=== PATIENT | female | born 1960 | race Caucasian/White ===

== ENCOUNTER → 2018-06-25 13:26 | Outpatient (CLI) | payer MEDICAID, SELFPAY ==
--- NOTE | 2018-06-25 13:33 | XR_ITS ---
XR shoulder RT min 2V HISTORY: ITS.REASON: RT ANTERIOR SHOULDER PAIN ORDERING PHYSICIAN: Benny Watt MD PATIENT AGE: 58 years Comparison: None FINDINGS: No fracture or dislocation. No lytic or blastic change. There is normal mineralization. The joint spaces are well-preserved. No significant degenerative/arthritic changes. No erosive changes evident. IMPRESSION: Negative, no acute finding
== END ==
PROVIDERS: PCP Family Medicine; Visit Provider Family Medicine
DX: M25.511 Pain in right shoulder (principal)
CPT/HCPCS: 73030

== ENCOUNTER → 2019-12-25 08:37 | Outpatient (CLI) | payer OTHER, SELFPAY ==
--- NOTE | 2019-12-25 08:42 | MM_ITS ---
PROCEDURE: MM DIG SCREENING MAMM BI W/CAD Digital Breast Tomosynthesis Included CLINICAL INDICATION: SCREENING There is no personal or family history of breast cancer. COMPARISON: No exams were available for comparison, previous mammograms have been purged TECHNIQUE: Standard CC and MLO images and 3D Tomosynthesis was obtained. R2 CAD reviewed. FINDINGS: The breasts are composed primarily of fat with minimal scattered fibroglandular densities in each breast. Abdominal images were reviewed. There is no suspicious lesion in either breast and no suspicious microcalcifications. There is minimal scarring central portion right breast secondary to injury in teenage years. IMPRESSION: Fatty type breast parenchyma with no suspicious lesions seen BI-RAD Category: 1 Negative FOLLOW-UP: 1YR 1 Year Follow-up (A letter has been sent to the patient regarding results of the study.) Dictated by: Dr. Saad Silva MD 12/26/2019 12:[address] Saad Silva MD in [place] 12/26/2019 12:02
--- NOTE | 2019-12-25 08:42 | CT_ITS ---
PROCEDURE: CT LUNG SCREENING CLINICAL INDICATION: H/O NICOTINE DEPENDENCE COMPARISON: No exams were available for comparison TECHNIQUE: The exam was performed on a GE Light Speed [address] scanner using 2.90 mGy CTDI. A low dose helical CT CHEST was performed on a multi-detector scanner. All CT scans at the facility use one or more dose reduction, viz: automated exposure control, ma/kV adjustment per patient size (including targeted exams where dose is matched to indication, i.e. head), or iterative reconstruction technique. The LDCT was performed in a facility that meets the criteria for the screening program. Data regarding this exam was submitted to ACR which is an approved registry. The order for this exam indicates that it came as a result of a lung cancer screening counseling shard decision-making visit that included all the elements required of such a visit including smoking cessation. The radiologist interpreting this exam meets the CMS criteria for the LDCT lung cancer screening program. The exam is reported using the Lung-RADS classification scale and reported to the ACR registry. NOTE: This study was performed for the specific purposes of lung cancer screening and is not an alternative to diagnostic chest CT. RADIATION DOSE: CTDI vol(CT dose Index-volume) = 2.90mG DLP (Dose Length Product) = 97.9 the mGcm FINDINGS: Changes of COPD and old granulomatous disease. No suspicious nodules. There are few scattered small mediastinal lymph nodes OTHER FINDINGS: Coronary artery calcification IMPRESSION: Lung rads category 1, negative, Recommend annual LDCT Dictated by: Kelton Miles MD 12/29/2019 09:58 Electronically signed by Kelton Miles MD in [place] 12/29/2019 09:58
== END ==
PROVIDERS: PCP Family Medicine; Visit Provider Family Medicine
DX: Z12.31 Encounter for screening mammogram for malignant neoplasm of breast (principal); Z87.891 Personal history of nicotine dependence; Z12.2 Encounter for screening for malignant neoplasm of respiratory organs
CPT/HCPCS: 77063; 77067

== ENCOUNTER → 2020-04-29 10:17 | Outpatient (CLI) | payer OTHER, SELFPAY ==
[2020-04-29 12:06] LABS: Coronavirus 19 IgG Antibody Negative (Negative); Coronavirus 19 IgM Antibody Negative (Negative)
== END ==
PROVIDERS: Visit Provider Internal Medicine Gastroenterology
DX: Z01.818 Encounter for other preprocedural examination (principal)
CPT/HCPCS: 36415; 86328

== ENCOUNTER 2020-04-30 08:29 | Day surgery (SDC) | payer OTHER, SELFPAY ==
[2020-04-26 15:34] VITALS: BMI 34.9
[2020-04-30] VITALS (7 sets, daily range): BP systolic 91–136; BP diastolic 68–88; PULSE 69–77; RESP 16–18; TEMP 36.2–36.7; O2SAT 95–98
--- NOTE | 2020-04-30 09:45 | HMH.ANESCL ---
[facility] Anesthesia Checklist - Patient Identification Patient Identification: Arm Band - Structural Data Admitted From: Home Planned Operative Procedure/s: colonoscopy Consent for Planned Operative Procedure(s) Verified: Yes Verified Documents: Surgical Consent, History and Physical - NPO Status Verified Time NPO: 00:00 - Additional verifications Anesthesia Reactions: No - Airway Assessment C-Spine Mobility Assessed: Yes (mp2) TMJ Mobility Assessed: Yes Dentition: Poor Dentition - Neurological Assessment Level of Consciousness: Awake, Alert - Anesthesia Plan Anesthesia Risk discussed: Yes Anesthesia Plan: Verified ASA Class: III Anesthesia Type: MAC [facility] History I have reviewed the patient's past medical history: Yes Medical History: Reports:: Anxiety, Hyperlipidemia, Hypertension Denies:: Cancer, Diabetes Mellitus Type 1, Diabetes Mellitus Type 2, Internal Pacemaker, MRSA, Seizures *Have you ever received a pneumonia vaccine?: No *Have you received a flu vaccine this season?: No Anesthesia experience/problems:: nac Laterality Cases: Right: Lumpectomy Other Surgeries: Yes: Dilation and Curettage, Hysterectomy-Total, Tubal Ligation, Other. No: Pacemaker Amputation: No - *Social History Last grade of school completed: High school graduate Smoking Status: Current every day smoker Tobacco Type: cigarettes # Packs/Day (cigarettes): 1 Alcohol Intake: current Alcohol Intake Frequency:: a few times a month Substance Use Type: denies use *Occupational Status:: unemployed Housing: house Household Members: spouse *Travel in the last 8 weeks: None Family Hx:: No significant family history
--- NOTE | 2020-04-30 10:28 | P.PCN_ITS ---
[facility] Procedure Note Procedure Note:: Colonoscopy Procedure Report: Colonoscopy with cold snare polypectomy and snare cautery Endoscopist: Zeke Leonard II, MD Referring physician: Benny Watt MD Date of Procedure: April 30, 2020 Equipment: Olympus 180 variable stiffness pediatric colonoscope Sedation: MAC sedation Indication: Mrs. Byrnes is a 60-year-old female who is here for initial screening colonoscopy. The patient does report some chronic constipation possibly from the the opiate pain medication (hydrocodone). The patient reports no abdominal pain, weight loss, change in her bowel habits or rectal bleeding. She reports no family history of colon cancer. She does have a prior history of a gastric ulcer. She has taken famotidine after Zantac was pulled off of the market. Procedure: Prior to the procedure, a history and physical exam was performed, and patient's medications and allergies were reviewed. The risks, benefits and alternatives of the sedation and procedure were discussed with the patient. All questions were answered and informed consent was obtained. The patient was brought to the procedure room. Patient identification and proposed procedure were verified by the physician and the nurse. The patient was placed in a left lateral decubitus position and the scope was passed under direct vision. Throughout the procedure, the patient's blood pressure, pulse, and oxygen saturations were monitored continuously. The colonoscopy was accomplished without difficulty. The patient tolerated the procedure well. Findings: On digital rectal examination there was normal rectal tone. There were no external hemorrhoids. The colonoscope was introduced through the anal canal to the rectum and advanced to the cecum. The ileocecal valve and appendiceal orifice were identified. The scope was advanced a short distance into the ileum which appeared grossly normal. The scope was then withdrawn into the colon. There were a total of 8 colon polyps removed from the colon (cecum x2 (4 and 5 mm), transverse x3 (9, 10 and 16mm), descending x1 (8 mm) and sigmoid x2 (both pedunculated 10 and 11 mm)). All of the polyps were removed via snare polypectomy. The proximal polyps were removed via cold snare polypectomy but the latter pedunculated polyps were removed via snare cautery. Upon retroflexion within the rectum there were grade 1-2 internal hemorrhoids.The preparation was excellent throughout with [place] Preparation Score of 9. The cecal time was 18 minutes. Impression: 1. Colonic polyps x8 (some larger/slightly more advanced adenomatous polyps) 2. Grade 1-2 internal hemorrhoids Plan: I will follow-up the polyp histology. Based upon the size and number of adenomatous polyps, I would recommend repeat screening/surveillance colonoscopy again in 1 to 2 years based upon the pathology. We will discuss treatment for her opioid-induced constipation (Movantik or Relistor).
== END 2020-04-30 11:22 | disposition home or self-care (01) ==
LOC: OUTP 08:31
PROVIDERS: PCP Family Medicine; Visit Provider Internal Medicine Gastroenterology
PROC: 0DJD8ZZ Inspection of Lower Intestinal Tract, Via Natural or Artificial Opening Endoscopic (ICD-10-PCS; CPT 45378; principal; 2020-04-30 09:30)
DX: Z12.11 Encounter for screening for malignant neoplasm of colon (principal); K63.5 Polyp of colon; K64.0 First degree hemorrhoids; Z79.891 Long term (current) use of opiate analgesic; Z87.11 Personal history of peptic ulcer disease; I10 Essential (primary) hypertension; E78.5 Hyperlipidemia, unspecified; F41.9 Anxiety disorder, unspecified; F32.9 Major depressive disorder, single episode, unspecified; Z90.710 Acquired absence of both cervix and uterus; Z72.0 Tobacco use; Z79.899 Other long term (current) drug therapy
CPT/HCPCS: 45385

== ENCOUNTER → 2021-03-08 15:44 | Outpatient (CLI) | payer BC, SELFPAY ==
--- NOTE | 2021-03-08 15:52 | XR_ITS ---
PROCEDURE: XR CHEST PORTABLE CLINICAL HISTORY: COVID OUTPATIENT COMPARISON: CR CXR CHEST(2 VIEWS-NOT PORTABLE) from 01/16/2015 FINDINGS: The cardiomediastinal silhouette and pulmonary vascularity are within normal limits. The lungs are clear without infiltrates, suspicious nodules, or pleural effusions. No acute bony abnormalities. IMPRESSION: No acute findings. Dictated by: Kelton Miles MD 03/08/2021 16:17 Kelton Miles MD in [place] 03/08/2021 16:17
== END ==
PROVIDERS: PCP Family Medicine; Visit Provider Family Medicine
DX: Z20.822 Contact with and (suspected) exposure to COVID-19 (principal)
CPT/HCPCS: 71045; U0003

== ENCOUNTER 2021-07-10 14:11 | Emergency (ER) | payer BC, SELFPAY ==
[2021-07-10 16:42] VITALS: BP 125/84; PULSE 91; RESP 19; TEMP 37; O2SAT 98; BMI 34.0
--- NOTE | 2021-07-10 17:25 | HMH.EDUTC ---
[facility] Disposition Clinical Impression: Exposure to COVID-19 virus Disposition: Home, Self-Care Condition on Discharge: Good Instructions: Vitamin C (Ascorbic Acid), Vitamin D (Alternative Therapy), Zinc, Vitamin D3 Associated With Decreased Risk of Dying in Elderly Women, DI for COVID-19 (Suspected or Confirmed ), Preventing the Spread of Coronavirus Discharge Instructions Additional Instructions: *Monitor Temp, Over the counter Motrin or Tylenol as directed/as needed Tylenol every 4 hours and Motrin every 6 hours (as long as your family doctor has told you that you can take it) for fever or pain. and straight to ER if unable to lower temp less than 101.0 after medication given *Warm salt water gargles may help to soothe the throat *Throat Lozenges *Warm fluids like tea with honey may help to soothe the throat *Sleep elevated *Humidifier/Vaporizer Follow up IMMEDIATELY for new or worsening symptoms or no Noticeable improvement over the next 48-72 hours. 911 for difficulty breathing or swallowing You were tested for today for COVID19 your test result should be back in the next 24-48 hours, You was given handout for instructions to [facility] to view your result if you are unable to log on you may call You was given a handout with instructions for Self Quarantine and Self isolation for while you wait on test results and what to do if they are positive If you are positive the Health Dept will be contacting you also Make sure to take your Vitamins Vit. C Vit D and Zinc if you can take them Referrals: Benny Watt MD [Primary Care Provider] - As needed Forms: Work/School Release Time of Disposition: 17:33 Medical Decision Making - Bradly Inquiry Pt receiving controlled substance: No Bradly was queried for this patient: No Vital Signs: 07/10/21 16:42 Temperature 98.6 F Temperature Source Oral Pulse Rate [Right Brachial] 91 H Respiratory Rate 19 Blood Pressure [Right Arm] 125/84 Blood Pressure Mean [Right Arm] 97 Blood Pressure Source [Right Arm] Automatic Cuff Blood Pressure Position [Right Arm] Sitting 02 Sat by Pulse Oximetry 98 Oxygen Delivery Method Room Air Orders (Tests/Meds): ORDERS Category Date Time Status Covid-19 Nasal PCR ([facility]) Routine Lab 07/10/21 16:[address] [facility] HPI - General Stated complaint: fever, sore throat, cough, headache, muscle aches Time Seen by Provider: 07/10/21 17:25 Mode of Arrival: Ambulatory Source of Information: Patient Description of Symptoms (Recalled from Triage Doc. by RN): covid test, cough, fever, exposure, fatigue, headache HEENT Symptoms (Recalled from RN notes): Yes Resp Symptoms (Recalled from RN notes): Yes Skin Symptoms (Recalled from RN notes): No MS Symptoms (Recalled from RN notes): No Functional Status (Recalled from RN notes): yes - History of Present Illness Provider Complaint: Patient states that he was around her daughter last week and she recently tested positive for COVID states that yesterday she started with body aches, chills, headache and feeling like she had the flu States that today she was still feeling bad so she came in to get checked - Related Data Home Medications Medication Instructions Recorded Confirmed Bisoprolol/Hydrochlorothiazide 1 each PO DAILY 04/26/20 04/26/20 [Bisoprolol-Hctz 10-6.25 mg Tab] Hydrocodone/Acetaminophen [Lortab 1 tab PO NEEDED PRN 04/26/20 04/26/20 7.5/325mg tablet] Lovastatin 10 mg PO DAILY 04/26/20 04/26/20 Venlafaxine HCl [Venlafaxine HCl 37.5 mg PO DAILY 04/26/20 04/26/20 ER] diazePAM [Valium 10mg tablet] 10 mg PO BID 04/26/20 04/26/20 hydroCHLOROthiazide [HCTZ 12.5mg 12.5 mg PO DAILY 04/26/20 04/26/20 cap] raNITIdine HCl [Ranitidine HCl] 75 mg PO DAILY 04/26/20 04/26/20 Allergies Allergy/AdvReac Type Severity Reaction Status Date / Time codeine Allergy Mild Nausea Verified 07/10/21 16:41 - Worker's Comp Is this a Worker's Comp david
[2021-07-10 17:42] VITALS: BP 125/84; PULSE 91; RESP 19; TEMP 37; O2SAT 98
== END 2021-07-10 17:42 | disposition home or self-care (01) ==
PROVIDERS: Emergency Provider Nurse Practitioner; PCP Family Medicine
DX: Z20.822 Contact with and (suspected) exposure to COVID-19 (principal); J02.9 Acute pharyngitis, unspecified; E78.5 Hyperlipidemia, unspecified; I10 Essential (primary) hypertension; Z79.899 Other long term (current) drug therapy
CPT/HCPCS: 99202; C9803; G0463; U0003; U0005

== ENCOUNTER → 2022-07-04 12:52 | Outpatient (CLI) | payer BC, SELFPAY ==
--- NOTE | 2022-07-04 12:56 | MM_ITS ---
PROCEDURE INFORMATION: Exam: MG Bilateral Screening 3D Mammography Exam date and time: 07/04/2022 12:55 PM Age: 62 years old Clinical indication: Screening examination TECHNIQUE: Imaging protocol: Bilateral Screening tomosynthesis and 2D mammography including computer-aided detection (CAD) when performed. COMPARISON: MG MM DIG SCREENING MAMM BI W/CAD 12/25/2019 9:13 AM FINDINGS: MAMMOGRAPHY: Breast composition: There are scattered areas of fibroglandular density. Mass: None. Architectural distortion: No new or suspicious architectural distortion. Calcifications: No new or suspicious calcifications are present Asymmetric density: No new or suspicious asymmetric density is present Skin thickening: None. Axillary adenopathy: None. IMPRESSION: No mammographic evidence of malignancy. Recommend annual screening mammography unless otherwise clinically indicated. ASSESSMENT: BI-RADS category 1: Negative
== END ==
PROVIDERS: PCP Family Medicine; Visit Provider Family Medicine
DX: Z12.31 Encounter for screening mammogram for malignant neoplasm of breast (principal)
CPT/HCPCS: 77063; 77067

== ENCOUNTER 2024-06-24 10:41 | Outpatient (CLI) | payer BC, SELFPAY ==
[2024-06-24 11:56] LABS: Anion Gap 9.5 mEq/L (5-15); Blood Urea Nitrogen 13 mg/dl (7-17); Calcium 9.5 mg/dl (8.4-10.2); Carbon Dioxide 31 mmol/L (22.0-30.0); Chloride 102 mmol/L (98-107); Estimated Glomerular Filt Rate 50 ml/min (>60); GFR (African American) 61 ML/MIN (>60); Glucose 207 mg/dl (74-100); Potassium 3.5 mmoL/L (3.5-5.1); Sodium 139 mmol/L (136-145)
== END 2024-06-24 23:59 | disposition home or self-care (01) ==
LOC: LAB 10:42
PROVIDERS: PCP Family Medicine; Visit Provider Family Medicine
DX: N18.31 Chronic kidney disease, stage 3a (principal); E87.6 Hypokalemia
CPT/HCPCS: 36415; 80048

== ENCOUNTER 2025-08-31 15:38 | Observation (INO) | payer OTHER, SELFPAY ==
[2025-08-31] VITALS (15 sets, daily range): BP systolic 102–146; BP diastolic 68–93; PULSE 90–110; RESP 16–18; TEMP 37.2; O2SAT 93–98; BMI 29.9
--- NOTE | 2025-08-31 15:49 | ECG_ITS ---
APPROVED REPORT Exam: Resting ECG HR:105 bpm ECG Measurements Heart Rate 105 AXES DC 148 P 49 QRSd 86 QRS 14 QT 244 T 115 QTc 305 Conclusion SINUS TACHYCARDIA ABNORMAL ECG UNCONFIRMED REPORT Electronically signed by : AMEENA MULLIGAN, 09/01/2025 05:22:38
--- NOTE | 2025-08-31 16:00 | [facility].EDCP ---
Discharge Plan Disposition Patient Disposition: Admitted Condition: Good Clinical Impressions Clinical Impression: Lung mass, Pulmonary emboli Discharge ED Provider: Theresa Contreras General Chief Complaint: Shortness of Breath/Dyspnea Stated Complaint: SOA Time Seen by Provider: 08/31/25 15:57 Mode of Arrival: Ambulatory Source of Information: Patient Description of Symptoms (Recalled from ER Triage Doc. by RN): PT states she has been experiencing SOB since this summer. Pt states within the last week she developed a sharp pain in her right shoulder as well as an increased SOB and rib pain. Pt was sent from urgent treatment. Pt states my oxygen was 60 when I was at urgent care . Pt is 98% RA in triage. History of Present Illness HPI narrative: This is a 65-year-old female with reported past medical history of hypertension and hyperlipidemia presenting to the emergency department with worsening shortness of breath, which she reports has been progressive over the past 2 to 3 weeks. She reports associated right lower chest pain with radiation to the back. Pain is worsened with deep breathing. No exacerbation of pain after eating or with meals. No reported pulmonary or cardiac history. She reports that her dyspnea is limiting her with her daily activities. No recent fevers, cough, nasal congestion, or hemoptysis. No history of DVT or PE. No malignancy. No recent surgery or immobilization. Related Data Home Medications ?Medication ?Instructions ?Recorded ?Confirmed bisoprolol 10 1 each PO DAILY High blood pressure 04/26/20 08/31/25 mg-hydrochlorothiazide 6.25 mg tablet diazepam 10 mg tablet 10 mg PO TID PRN Anxiety 04/26/20 08/31/25 hydrochlorothiazide 12.5 mg capsule 12.5 mg PO DAILY High blood 04/26/20 08/31/25 pressure lovastatin 10 mg tablet 10 mg PO DAILY Cholesterol 04/26/20 08/31/25 amitriptyline 25 mg tablet 25 mg PO HS 08/31/25 08/31/25 cyclobenzaprine 5 mg tablet 5 mg PO TID PRN Pain 08/31/25 08/31/25 empagliflozin 10 mg tablet 10 mg PO DAILY 08/31/25 08/31/25 (Jardiance) famotidine 20 mg tablet 20 mg PO BID 08/31/25 08/31/25 furosemide 40 mg tablet 40 mg PO DAILY PRN Edema 08/31/25 08/31/25 hydrocodone 5 mg-acetaminophen 325 1.5 tab PO Q8H PRN Pain 08/31/25 08/31/25 mg tablet lisinopril 5 mg tablet 5 mg PO DAILY 08/31/25 08/31/25 omeprazole 40 mg capsule,delayed 40 mg PO DAILY 08/31/25 08/31/25 release potassium chloride 20 mEq 20 meq PO DAILY 08/31/25 08/31/25 tablet,extended release(part/cryst) ziprasidone HCl 60 mg capsule 60 mg PO BID 08/31/25 08/31/25 Allergies Allergy/AdvReac Type Severity Reaction Status Date / Time codeine AdvReac Mild Nausea Verified 08/31/25 22:04 [facility] Disclaimer: The information contained in this section may have been updated after the patient was seen, as this information can be updated by other users. Medical History (Updated 08/31/25 @ 23:45 by Janet Recinos APRN) Depression Anxiety Hyperlipidemia Hypertension Chronic kidney disease Surgical History (Updated 08/31/25 @ 22:26 by Monica Stubbs RN) H/O eye surgery Family History (Updated 08/31/25 @ 23:29 by Janet Recinos APRN) Other No significant family history Social History (Updated 08/31/25 @ 22:26 by Monica Stubbs RN) Smoking Status: Former smoker tobacco type: cigarettes packs per day: 1 second hand exposure: No alcohol intake: never substance use type: denies use current occupational status: other Travel in the last 8 weeks?: None household members: spouse housing: house current occupational exposures/hazards: No caffeine: Yes Have you lived/traveled outside [place] in past 30 days?: No Contact w/someone who lives/traveled outside US past 30 days?: No Exposure to someone with infectious disease in past 14 days?: No Do you have a fever (greater than 100.4 F or 38 C)?: No Have you tested positive for COVID-19?: No Exposed to someone with COVID-19 in past 14 days?: No Do you have a sore throat?: No Do you have a cough?: No Do you have any weakness?: No Do you have any diarrhea?: No Are you experiencing any unusual bleeding?: No Do you have any muscle aches/pain?: No Do you have any abdominal pain?: No Are you experiencing loss of taste or smell?: No Other Medical History Have you received the Flu Vaccine for this season: No Have you received the Pneumonia Vaccine: No ROS Obtained: Yes All systems reviewed & no additional complaints except as documented Physical Exam General General appearance: alert and in no apparent distress Head Head exam: atraumatic and normocephalic Eye Eye exam: Present PERRL ENT ENT exam: Present mucous membranes moist Neck Neck exam: Present normal inspection Chest Chest inspection: Present symmetric chest wall rise; Absent tenderness Respiratory Respiratory exam: Present normal lung sounds bilaterally; Absent respiratory distress, wheezes or accessory muscle use Cardiovascular Cardiovascular exam: Present regular rate and normal rhythm Abdominal Exam Abdominal exam: Present soft; Absent distention or tenderness Extremities Exam Extremities exam: Present normal inspection; Absent tenderness Neurological Exam Neurological exam: Present alert and oriented X3 Psychiatric Psychiatric exam: Present normal affect Skin Skin exam: Present warm and dry HEART Score HEART Score HEART Score assessment performed?: Yes History (anamnesis): Slightly suspicious ECG: Non-specific disturbance Age: 45-65 years Risk factors: 1-2 risk factors Troponin: </= normal limit HEART Score: 3 Critical Care Critical Care Time Critical Care Time: No Medical Decision Making Bradly Inquiry Pt receiving controlled substance: No Bradly was queried for this patient: No Vital Signs Vital Signs: 08/31/25 15:54 08/31/25 16:18 08/31/25 16:30 Temperature 98.9 F Temperature Source Oral Pulse Rate 107 H 106 H Pulse Rate [Right Radial] 100 H Respiratory Rate 18 Blood Pressure 114/68 102/76 L Blood Pressure [Right Arm] 146/93 H Blood Pressure Mean Blood Pressure Mean [Right Arm] 110 Blood Pressure Source Blood Pressure Source [Right Arm] Automatic Cuff Blood Pressure Position Blood Pressure Position [Right Arm] Sitting 02 Sat by Pulse Oximetry 93 L 97 96 Oxygen Delivery Method Room Air 08/31/25 17:00 08/31/25 19:00 08/31/25 19:00 Temperature Temperature Source Pulse Rate 110 H 106 H Pulse Rate [Right Radial] Respiratory Rate Blood Pressure 124/83 116/75 Blood Pressure [Right Arm] Blood Pressure Mean 84 Blood Pressure Mean [Right Arm] Blood Pressure Source Blood Pressure Source [Right Arm] Blood Pressure Position Blood Pressure Position [Right Arm] 02 Sat by Pulse Oximetry 96 93 L Oxygen Delivery Method Room Air 08/31/25 19:15 08/31/25 19:30 08/31/25 19:30 Temperature Temperature Source Pulse Rate 105 H 105 H Pulse Rate [Right Radial] Respiratory Rate Blood Pressure 108/77 L Blood Pressure [Right Arm] Blood Pressure Mean 83 Blood Pressure Mean [Right Arm] Blood Pressure Source Blood Pressure Source [Right Arm] Blood Pressure Position Blood Pressure Position [Right Arm] 02 Sat by Pulse Oximetry 94 L 95 Oxygen Delivery Method Room Air Room Air 08/31/25 19:40 08/31/25 19:45 08/31/25 20:00 Temperature Temperature Source Pulse Rate 103 H Pulse Rate [Right Radial] Respiratory Rate Blood Pressure 103/83 L Blood Pressure [Right Arm] Blood Pressure Mean 87 Blood Pressure Mean [Right Arm] Blood Pressure Source Blood Pressure Source [Right Arm] Blood Pressure Position Blood Pressure Position [Right Arm] 02 Sat by Pulse Oximetry 95 94 L Oxygen Delivery Method Room Air 08/31/25 20:00 08/31/25 20:15 08/31/25 20:30 Temperature Temperature Source Pulse Rate 103 H 100 H 101 H Pulse Rate [Right Radial] Respiratory Rate Blood Pressure Blood Pressure [Right Arm] Blood Pressure Mean Blood Pressure Mean [Right Arm] Blood Pressure Source Blood Pressure Source [Right Arm] Blood Pressure Position Blood Pressure Position [Right Arm] 02 Sat by Pulse Oximetry 94 L 95 95 Oxygen Delivery Method Room Air Room Air Room Air 08/31/25 20:30 08/31/25 20:45 08/31/25 20:45 Temperature Temperature Source Pulse Rate 104 H Pulse Rate [Right Radial] Respiratory Rate Blood Pressure 103/74 L Blood Pressure [Right Arm] Blood Pressure Mean 83 Blood Pressure Mean [Right Arm] Blood Pressure Source Blood Pressure Source [Right Arm] Blood Pressure Position Blood Pressure Position [Right Arm] 02 Sat by Pulse Oximetry 96 Oxygen Delivery Method Room Air Room Air 08/31/25 21:00 08/31/25 21:00 08/31/25 21:14 Temperature 98.9 F Temperature Source Oral Pulse Rate 103 H 102 H Pulse Rate [Right Radial] Respiratory Rate 16 Blood Pressure 103/71 L 103/71 L Blood Pressure [Right Arm] Blood Pressure Mean 79 Blood Pressure Mean [Right Arm] Blood Pressure Source Automatic Cuff Blood Pressure Source [Right Arm] Blood Pressure Position Sitting Blood Pressure Position [Right Arm] 02 Sat by Pulse Oximetry 97 Oxygen Delivery Method Room Air Room Air Lab Data Labs: Lab Results 08/31/25 15:50: SARS-CoV-2 (PCR) Not detected, Influenza A Untype (PCR) Not detected, Influenza Type B (PCR) Not detected 08/31/25 16:15: WBC 9.6, RBC 4.13 L, Hgb 11.6 L, Hct 35.0 L, MCV 84.7, MCH 28.1, MCHC 33.1, RDW 12.8, Plt Count 226, MPV 10.8 H, Neut % (Auto) 83.2 H, Lymph % (Auto) 8.7 L, [place] % (Auto) 6.9, Eos % (Auto) 0.5, Baso % (Auto) 0.2, Neut # (Auto) 8.0 H, Lymph # (Auto) 0.8, Ceiba # (Auto) 0.7, Eos # (Auto) 0.1, Baso # (Auto) 0.0, PT 11.1, INR 1.00, APTT 28.6, Sodium 132 L, Potassium 3.4 L, Chloride 95 L, Carbon Dioxide 29, Anion Gap 11.4, BUN 22 H, Creatinine 1.30 H, Estimated Creat Clear 56, Estimated GFR 41 L, Est GFR ( Amer) 50 L, Glucose 114 H, Calcium 9.3, Total Bilirubin 0.9, AST 26, ALT 15, Alkaline Phosphatase 74, Troponin I < 0.01, Total Protein 8.1, Albumin 4.1, Globulin 4.0 H, Albumin/Globulin Ratio 1.0 L, Lipase 98 08/31/25 18:48: Troponin I < 0.01 08/31/25 16:15 08/31/25 16:15 Response Orders (Tests/Meds): ED MEDICATIONS Generic Name Dose Route Start Last Admin Trade Name Freq PRN Reason Stop Dose Admin Acetaminophen 650 mg 08/31/25 20:16 Acetaminophen 325mg Tab PO 09/30/25 20:15 Q4HP PRN Fever or Mild Pain (1-3) Enoxaparin Sodium 80 mg 08/31/25 22:00 08/31/25 22:01 Enoxaparin 100mg/Ml Syringe 1 mg/kg (80 mg) 09/30/25 21:59 80 mg SUBCUT Administration Q12H RYAN Lactated Ringer's 1,000 mls @ 100 mls/hr 08/31/25 20:30 08/31/25 21:09 Lactated Ringer's 1000 Ml Bag IV 09/30/25 20:29 50 mls/hr .Q10H RYAN Administration Pantoprazole Sodium 40 mg 08/31/25 21:00 08/31/25 21:58 Pantoprazole 40mg Tablet PO 09/30/25 20:59 40 mg HS RYAN Administration Discontinued Medications Generic Name Dose Route Start Last Admin Trade Name Luis PRN Reason Stop Dose Admin Acetaminophen 1,000 mg 08/31/25 16:10 08/31/25 17:07 Acetaminophen 1,000mg/100ml Vial IV 08/31/25 16:11 1,000 mg ONCE ONE Administration Iopamidol 70 ml 08/31/25 17:23 08/31/25 17:26 Iopamidol-370 (76%);100ml Bottle IV 08/31/25 17:24 70 ml ONCE ONE Administration Sodium Chloride 10 ml 08/31/25 17:23 08/31/25 17:26 Sodium Chloride 0.9% 10ml Syr (Rad Only) IV 08/31/25 17:24 10 ml ONCE ONE Administration Sodium Chloride 50 ml 08/31/25 17:23 08/31/25 17:26 0.9 % Sodium Chloride 50 Ml Vial IV 08/31/25 17:24 50 ml ONCE ONE Administration ORDERS Category Date Time Status CT angio chest PE protocol Stat Cat Scan 08/31/25 16:10 Completed CBC w/Auto Diff [Complete Blood Count Auto Diff] Stat Lab 08/31/25 16:15 Completed CMP [Comprehensive Metabolic Panel] Stat Lab 08/31/25 16:15 Completed Complete Blood Count Auto Diff AMLAB Lab 09/01/25 06:00 Ordered Comprehensive Metabolic Panel AMLAB Lab 09/01/25 06:00 Ordered Lipase Stat Lab 08/31/25 16:15 Completed PT INR [Prothrombin Time INR] Stat Lab 08/31/25 16:15 Completed PTT [Activated Partial Thrombo Time] Stat Lab 08/31/25 16:15 Completed Rapid PCR Covid and Flu A/B Stat Lab 08/31/25 15:50 Completed Trop I [Troponin I] Stat Lab 08/31/25 16:15 Completed Troponin I Q3H Lab 08/31/25 18:48 Completed Troponin I Q3H Lab 08/31/25 22:26 Completed ECG Data Tracing #1: ECG Narrative: EKG shows sinus tachycardia at a rate of 105. Normal FL, QRS, and QTc intervals. Normal axis. No acute ST elevations or signs of acute subendocardial or transmural ischemia. MDM Narrative Medical Decision Narrative: In summary, this is a 65y/o female presenting the emergency department for 2 to 3 weeks of worsening shortness of air, right-sided pleuritic chest pain with radiation to the back, and exertional dyspnea. Differential diagnosis includes but is not limited to: Right lower lobe pneumonia, PE, COPD, asthma, URI, heart failure On my initial assessment, the patient is hemodynamically stable in no acute distress. Physical exam is essentially unremarkable. The patient has no increased work of breathing. No wheezing or abnormal lung sounds. She has no focal tenderness. Initial workup will be focused on ruling out pneumonia and PE considering O2 saturation on arrival was 93% on room air with heart rate of 100. Labs notable for mild anemia with elevated creatinine of 1.3. Troponins <0.01. Imaging is notable for a RLL PE without R heart strain and a L lung mass, potentially concerning for malignancy. Radiology reads in agreement, also noting a pulmonary infarct in the RLL. I discussed imaging findings with the patient. I explained my concerns that this may represent a potential pulmonary malignancy with concurrent PE, but considering her persistent tachycardia she would most benefit from likely initiation of Lovenox on inpatient basis. I discussed the case with hospitalist Dr. Powell who agrees to admit patient to her service.
--- OUTSIDE RECORDS SUMMARY | 2025-08-31 16:00 | XMS_ITS | Clinical Summary ---
Author Organization [facility] [employer] [facility] Address [address] [place] [address] Care Team Providers Care Ward Maid Name Role Phone Benny Watt MD Primary Care Provider + Allergies Active Allergy Reactions Criticality Noted Date Comments Aripiprazole Swelling Medium 02/01/2024 Codeine Nausea And Vomiting 02/23/2022 Lamotrigine Rash High 12/24/2023 Venlafaxine Hcl Er Other (See Comments) High 024 Mary Medications * This document contains information received from the source organization and may not represent a complete record from that organization. cyclobenzaprine (FLEXERIL) 5 MG tabletIndications :Arthritis of lumbar spine Take 1 tablet by mouth 3 (Three) Times a Day As Needed for Muscle Spasms. 270 tablet 1 4 Active Jardiance 10 MG tablet tablet TAKE 1 TABLET DAILY 90 tablet 3 4 Active potassium chloride (KLOR-CON M20) 20 MEQ CR tabletIndications :correction current use of diuretic Take 1 tablet by mouth Daily. 90 tablet 1 5 Active diazePAM (VALIUM) 10 MG tabletIndications :Generalized anxiety disorder TAKE 1 TABLET BY MOUTH THREE TIMES DAILY NEEDED FOR ANXIETY 90 tablet 2 5 Active amitriptyline (ELAVIL) 25 MG tabletIndications :Insomnia, unspecified type Take 1 tablet by mouth Every Night. 90 tablet 1 5 Active omeprazole (priLOSEC) 40 MG capsuleIndication s:Gastroesophagea l reflux disease without esophagitis TAKE 1 CAPSULE BY MOUTH DAILY 30 capsule 4 5 Active furosemide (LASIX) 40 MG tabletIndications :Lower extremity edema Take 1 tablet by mouth Daily As Needed (swelling). 5 Active bisoprolol-hydroc hlorothiazide (ZIAC) 10-6.25 MG per tabletIndications :Essential hypertension Take 1 tablet by mouth Daily. 90 tablet 1 5 Active hydroCHLOROthiazi de (MICROZIDE) 12.5 MG capsuleIndication s:Essential hypertension Take 1 capsule by mouth Every Morning. 90 capsule 1 5 Active lovastatin (MEVACOR) 10 MG tabletIndications :Hypercholesterol emia Take 1 tablet by mouth Every Night. 90 tablet 1 5 Active lisinopril (PRINIVIL,ZESTRIL ) 5 MG tabletIndications :Stage 3a chronic kidney disease (CKD) Take 1 tablet by mouth Daily. 90 tablet 1 5 Active famotidine (PEPCID) 20 MG tabletIndications :Gastroesophageal reflux disease without esophagitis,Esoph ageal dysphagia TAKE 1 TABLET BY MOUTH TWICE DAILY 180 tablet 1 5 Active ziprasidone (GEODON) 60 MG capsuleIndication s:Bipolar 1 disorder, depressed, partial remission Take 1 capsule by mouth 2 (Two) Times a Day With Meals. 60 capsule 2 5 Active HYDROcodone-aceta minophen (Aurora) 5-325 MG per tabletIndications :Foraminal stenosis of cervical region,Arthritis of lumbar spine,Chronic pain syndrome Take 1.5 tablets by mouth Every 8 (Eight) Hours As Needed for Severe Pain. 135 tablet 5 Active HYDROcodone-aceta minophen (Aurora) 5-325 MG per tabletIndications :Foraminal stenosis of cervical region,Arthritis of lumbar spine,Chronic pain syndrome Take 1.5 tablets by mouth Every 8 (Eight) Hours As Needed for Severe Pain. 135 tablet 5 08/24/20 25 Discontinu ed(Reorder ) Active Problems Problem Noted Date Diagnosed Date Gastroesophageal reflux disease without esophagi tis 11/30/2022 Assessment & Plan (12/03/2023 9:56 AM EST): Poorly controlled. Change Pepcid to omeprazole. Reassess in 6 months. Class 3 obesity 11/30/2022 Assessment & Plan (11/30/2022 9:42 AM EST): Patient's (Body mass index is 38.3 kg/m .) indicates that they are morbidly/severely obese (BMI > 40 or > 35 with obesity - related health condition) with health conditions that include hypertension, GERD and osteoarthritis . Weight is improving with treatment. BMI is above average; BMI management plan is completed. We discussed portion control. Primary hypertension 02/23/2022 Assessment & Plan (06/25/2025 9:11 AM EDT): Hypertension is stable and controlled Continue current treatment regimen. Blood pressure will be reassessed in 6 months. Reassess urine microalbumin. If elevated she will benefit from the switch to an ULISSES or ARB for her CKD Assessment & Plan (12/03/2023 9:55 AM EST): Hypertension is well-controlled . Continue current treatment regimen. Dietary sodium restriction. Blood pressure will be reassessed at the next regular appointment. Assessment & Plan (11/30/2022 9:40 AM EST): Hypertension is improving with treatment. Continue current treatment regimen. Blood pressure will be reassessed at the next regular appointment. Assessment & Plan (02/23/2022 10:49 AM EDT): Hypertension is improving with treatment. Continue current treatment regimen. Dietary sodium restriction. Continue current medications. Blood pressure will be reassessed at the next regular appointment. Hypercholesterolemia 02/23/2022 Assessment & Plan (06/25/2025 9:12 AM EDT): Condition was not at goal at last assessment. Repeat lipid panel today as she has clearly made dietary changes resulting in 14 pound weight loss Assessment & Plan (02/23/2022 11:04 AM EDT): Lipid abnormalities are improving with treatment. Pharmacotherapy as ordered. Lipids will be reassessed in 1 year. Foraminal stenosis of cervical region 02/23/2022 Chronic pain syndrome 02/23/2022 Assessment & Plan (06/25/2025 9:18 AM EDT): Pain is stable but not expected to improve. Continue as needed hydrocodone. UDS compliant. Bradly compliant Assessment & Plan (12/03/2023 9:55 AM EST): Stable but not expected to improve. Continue as needed muscle relaxant and as needed opiate-based pain medication. NSAIDs have caused significant upset stomach. Compliance drug screen has been ordered Moderate episode of recurrent major depressive d isorder 02/23/2022 Assessment & Plan (12/03/2023 9:56 AM EST): Patient's depression is recurrent and is mild without psychosis. Their depression is currently active and the condition is worsening. This will be reassessed at the next regular appointment. F/U as described:patient was prescribed an antidepressant medicine. Add lamotrigine to patient's Effexor. Assessment & Plan (11/30/2022 9:40 AM EST): Psychological condition is worsening. Continue current treatment regimen. Psychological condition will be reassessed at the next regular appointment. Arthritis of lumbar spine 02/23/2022 Assessment & Plan (11/30/2022 9:40 AM EST): Pain is stable. She continues to benefit from use of opiates to control pain. Urine drug screen is been ordered for compliance. Stage 3a chronic kidney disease (CKD) 02/23/2022 Assessment & Plan (06/25/2025 9:13 AM EDT): Renal condition is stable. Continue current treatment regimen. Renal condition will be reassessed in 6 months. UACR remains abnormal. Lisinopril will be added at low-dose. Patient will monitor blood pressure more closely for signs of hypotension which may necessitate discontinuation of hydrochlorothiazide 12-1/2 mg Assessment & Plan (12/03/2023 9:57 AM EST): Renal condition is stable . Continue current treatment regimen. Weight loss. Renal condition will be reassessed in 6 months. Assessment & Plan (11/30/2022 9:41 AM EST): Renal condition is Stable. Continue current treatment regimen. Continue current medications. Renal condition will be reassessed in 6 months. BMP ordered today for surveillance Assessment & Plan (02/23/2022 10:51 AM EDT): Renal condition is newly identified. Continue current treatment regimen. Continue current medications. repeat BMP Renal condition will be reassessed in 6 months. Encounters Date Type Department Care Team Description 08/24/2025 Refill [facility] [address] [facility] [place] [address] Gamaliel Rdz MD Foraminal stenosis of cervical region; Arthritis of lumbar spine; Chronic pain syndrome 08/03/2025 Telephone [facility] [address] [facility] [place] [address] Christopher Kern APRN Med Management 07/31/2025 Refill [facility] [address] [facility] [place] [address] Christopher Kern APRN Bipolar 1 disorder, depressed, partial remission 07/30/2025 [facility] [address] [facility] [place] [address] Christopher Kern APRN Med Management 07/30/2025 Refill [facility] [address] [facility] [place] [address] Benny Watt MD Bipolar 1 disorder, depressed, partial remission 07/26/2025 Refill [facility] [address] [facility] [place] [address] Benny Watt MD Foraminal stenosis of cervical region; Arthritis of lumbar spine; Chronic pain syndrome 06/29/2025 Refill [facility] [address] [place] [address] Benny Watt MD Gastroesophageal reflux disease without esophagitis; Esophageal dysphagia 06/29/2025 Refill [facility] [address] [place] [address] Benny Watt MD Foraminal stenosis of cervical region; Arthritis of lumbar spine; Chronic pain syndrome 06/26/2025 Results Follow-Up [facility] [address] [place] [address] Benny Watt MD 06/25/2025 9:00 AM EDT Office Visit [facility] [address] [place] [address] Benny Watt MD Essential hypertension (Primary Dx); Stage 3a chronic kidney disease (CKD); Foraminal stenosis of cervical region; Arthritis of lumbar spine; Chronic pain syndrome; correction (current) use of opiate analgesic; Encounter for screening mammogram for malignant neoplasm of breast; Hypercholesterolemia; Lower extremity edema 06/25/2025 Travel from Last 3 Months Immunizations Immunization Administration Dates Next Due COVID-19 (MODERNA) 1st,2nd,3rd Dose Monovalent 0 06/11/2021 Pneumococcal Conjugate 20-Valent (PCV20) 023 Family History Medical History Relation Name Comments Depression Daughter 1 Magda Byrnes Addiction relat ed Drug abuse Daughter 1 Magda Byrnes Heroine, cocain e drug use since 16 yrs old Miscarriages / Stillbirths Daughter 1 Magda Byrnes 1 miscarriage Thyroid disease Daughter 2 Cali eng Alcohol abuse Father Zeke mulligan Step father Arthritis Father Zeke mulligan Cancer Father Zeke mulligan Lung cancer Liver disease Father Zeke mulligan Drug abuse Maternal Aunt Karen Sowder Heart disease Maternal Grandfather Tim Fryman CAD Arthritis Maternal Grandmother Mami Fryman Depression Maternal Grandmother Mami Fryman Diabetes Maternal Grandmother Mami Fryman Heart disease Maternal Grandmother Mami Fryman CAD Anxiety disorder Mother Lninette mulligan Arthritis Mother Linnette mulligan Cancer Mother Linnette mulligan Was surgical r emoved hysterectomy Depression Mother Linnette mulligan After menopaus e Diabetes Mother Linnette mulligan Heart disease Mother Linnette mulligan Coronary mario ry disease, congestive heart failure Hyperlipidemia Mother Linnette mulligan Stroke Mother Linnette mulligan Cancer Sister 1 Mami Blanton Surgery hyste rectomy Drug [facility] Sister 2 Nikki Mulligan Heart disease Sister 2 Nikki Mulligan Had stent put in Hyperlipidemia Sister 2 Nikki Mulligan Hypertension Sister 2 Nikki Mulligan Relation Name Status Comments Daughter 1 Magda Byrnes Daughter 2 Cali eng Father Zeke mulligan Maternal Aunt Karen Benjamin Maternal Grandfather Tim Paz Maternal Grandmother Mami Paz Mother Linnette mulligan Sister 1 Mami Blanton Sister 2 Nikki Mulligan Social History Tobacco Use Types Packs/Day Years Used Date Smoking Tobacco: Former Cigarettes 0.3 45.5 0 06/10/1976 - 12/16/2021 Electronic Cigarette Smokeless Tobacco: Never Tobacco Cessation:Counseling Given: Not Answered Comments:Quit cigarette started vaping 6mg. Alcohol Use Standard Drinks/Week Comments Not Currently 0 (1 standard drink = 0.6 oz pure alcohol) Occasional beer in summer at [facility] PHQ-2 Answer Date Recorded Retired PHQ-9: Brief Depression Severity Measure Score 16 11/30/2022 PHQ-2 Answer Date Recorded Patient Health Questionnaire-2 Score 0 06/25/2025 Comments Unknown Sex and Gender Information Value Date Recorded Sex Assigned at Female 06/18/2025 7:55 AM EDT Legal Sex Female 12:08 PM EDT Gender Identity Not on file Sexual Orientation Not on file Last Filed Vital Signs Vital Sign Reading Time Taken Comments Blood Pressure 110/80 06/25/2025 8:34 AM EDT Pulse 72 06/25/2025 8:34 AM EDT Temperature 36.7 C (98.1 F) 06/25/2025 8:34 AM EDT Respiratory Rate 20 06/25/2025 8:34 AM EDT Oxygen Saturation 97% 12/18/2024 10:32 AM EST Inhaled Oxygen Concentration - - Weight 88.2 kg (194 lb 6.4 oz) 06/25/2025 8:34 A M EDT Height 154.9 cm (5' 0.98 ) 06/25/2025 8:34 AM ED T Body Mass Index 36.75 06/25/2025 8:34 AM EDT Plan of Treatment Upcoming Encounters Date Type Department Care Team (Late st Contact Info) Description 12/21/2025 8:15 AM EST Office Visit [facility] [address] [address] Benny Watt MD [address] [place], [place] [address] Health Maintenance Due Date Last Done Comments Annual Gynecologic Pelvic an d Breast Exam 1961 TDAP/TD VACCINES (1 - Tdap) 02/01/1980 COLOGUARD 2006 COLON CANCER SCREENING 5 YEA R SIGMOIDOSCOPY [address] COLONOGRAPHY 2006 FECAL OCCULT BLOOD TEST 2006 FIT Testing (1 year) 2006 ZOSTER VACCINE (1 of 2) 2011 HEPATITIS C SCREENING 02/23/2022 ANNUAL PHYSICAL 05/31/2024 05/31/2023 MAMMOGRAM 07/04/2024 07/04/2022, 08/0 02/2022, 05/26/2022 INFLUENZA VACCINE 05/22/2025 LIPID PANEL 06/25/2026 06/25/2025, 11/23, 05/31/2023, Additional history exists COLONOSCOPY 04/30/2030 04/30/2020 (Nancy ent-Reported (Performed Externally)) COLORECTAL CANCER SCREENING 04/30/2030 Pneumococcal Vaccine 50+ Completed 05/31/2023 Procedures Procedure Name Priority Date/Time Associated Diagnosis Comments LIPID PANEL Routine 06/25/2025 9:19 AM EDT Stage 3a chronic kidney disease (CKD) Hypercholesterolemia RENAL FUNCTION PANEL Routine 06/25/2025 9:19 AM EDT Essential hypertension POCT MEDLINE 12 PANEL URINE DRUG SCREEN Routine 06/25/2025 9:12 AM EDT correction (current) use of opiate analgesic POC ALBUMIN/CREATININE RATIO Routine 06/25/2025 9:08 AM EDT Stage 3a chronic kidney disease (CKD) SCANNED - MAMMO 07/04/2022 from Last 3 Months or Most Recently Relevant to Health Maintenance Results * (ABNORMAL) Renal Function Panel (06/25/2025 9:19 AM EDT) Pathologist [facility] Glucose 85 65 - 99 mg/dL [facility] BUN 13.0 8.0 - 23.0 mg/dL [facility] Creatinine 1.11(H) 0.57 - 1.00 mg/dL [facility] EGFR Result 55.6(L) >60.0 mL/min/1.7 3 [facility] Comment: GFR Categories in Chronic Kidney Disease (CKD) GFR Category GFR (mL/min/1.73) Interpretation G1 90 or greater Normal or high (1) G2 60-89 Mild decrease (1) G3a 45-59 Mild to moderate decrease G3b 30-44 Moderate to severe decrease G4 15-29 Severe decrease G5 14 or less Kidney failure (1)In the absence of evidence of kidney disease, neither GFR category G1 or G2 fulfill the criteria for CKD. eGFR calculation 2020 CKD-EPI creatinine equation, which does not include race as a factor BUN/Creatinine Ratio 11.7 7.0 - 25.0 [facility] Sodium 142 136 - 145 mmol/L [facility] Potassium 4.1 3.5 - 5.2 mmol/L [facility] Chloride 103 98 - 107 mmol/L [facility] Total CO2 27.3 22.0 - 29.0 mmol/L [facility] Calcium 9.5 8.6 - 10.5 mg/dL [facility] Phosphorus 2.4(L) 2.5 - 4.5 mg/dL [facility] Albumin 4.1 3.5 - 5.2 g/dL [facility] Blood 06/25/2025 9:19 AM EDT 06/25/2025 Narrative [facility] ([facility]) - 06/26/2025 3:07 AM EDT Performed at: [address] [place] [address] [id number] Field Representative/Health Education: Simon Connolly MD, Phone: [phone] Patient Fasting: Y Benny Watt MD LAB BLOOD ORDERABLES Fin al Result Performing Organization Address City/[facility] Co de Phone Number [facility] ([facility]) [address] [place] [address], [facility] [address] [place] [address], [place] [phone] * (ABNORMAL) Lipid Panel (06/25/2025 9:19 AM EDT) [facility] Total Cholesterol 160 0 - 200 mg/dL [facility] Comment: Cholesterol Reference Ranges (U.S. Department of Health and Human Services ATP III Classifications) Desirable <200 mg/dL Borderline High 200-239 mg/dL High Risk >240 mg/dL Triglyceride Reference Ranges (U.S. Department of Health and Human Services ATP III Classifications) Normal <150 mg/dL Borderline High 150-199 mg/dL High 200-499 mg/dL Very High >500 mg/dL HDL Reference Ranges (U.S. Department of Health and Human Services ATP III Classifications) Low <40 mg/dl (major risk factor for CHD) High >60 mg/dl ('negative' risk factor for CHD) LDL Reference Ranges (U.S. Department of Health and Human Services ATP III Classifications) Optimal <100 mg/dL Near Optimal 100-129 mg/dL Borderline High 130-159 mg/dL High 160-189 mg/dL Very High >189 mg/dL LDL is calculated using the NIH LDL-C calculation. Triglycerides 158(H) 0 - 150 mg/dL [facility] HDL Cholesterol 43 40 - 60 mg/dL [facility] VLDL Cholesterol Giovani 27 5 - 40 mg/dL [facility] LDL Chol Calc (NIH) 90 0 - 100 mg/dL [facility] Blood 06/25/2025 9:19 AM EDT 06/25/2025 Narrative [facility] (AMBULATORY) - 06/26/2025 3:07 AM EDT Performed at: [address] [place] [address] [id number] Field Representative/Health Education: Simon Connolly MD, Phone: [phone] Patient Fasting: Y Benny Watt MD LAB BLOOD ORDERABLES Fin al Result [facility] (AMBULATORY) [address] [place] [address], [place] [phone] [facility] [address] [place] [address], [place] [phone] * (ABNORMAL) POC Medline 12 Panel Urine Drug Screen (06/25/2025 9:12 AM EDT) Amphetamine Screen, Urine Negative Negative AMP INTERNAL CONTROL Passed Passed Barbiturates Screen, Urine Negative Negative BARBITURATE INTERNAL CONTROL Passed Passed Buprenorphine, Screen, Urine Negative Negative BUPRENORPHINE INTERNAL CONTROL Passed Passed Benzodiazepine Screen, Urine Negative Negative BENZODIAZEPINE INTERNAL CONTROL Passed Passed Cocaine Screen, Urine Negative Negative COCAINE INTERNAL CONTROL Passed Passed MDMA (ECSTASY) Negative Negative MDMA (ECSTASY) INTERNAL CONTROL Passed Passed Methamphetamine, Ur Negative Negative METHAMPHETAMINE INTERNAL CONTROL Passed Passed Morphine/Opiates Screen, Urine Positive(A) Negative MOR INTERNAL CONTROL Passed Passed Methadone Screen, Urine Negative Negative METHADONE INTERNAL CONTROL Passed Passed Oxycodone Screen, Urine Negative Negative OXYCODONE INTERNAL CONTROL Passed Passed Phencyclidine (PCP), Urine Negative Negative PHENCYCLIDINE INTERNAL CONTROL Passed Passed THC, Screen, Urine Negative Negative THC INTERNAL CONTROL Passed Passed Lot Number [id number] Expiration Date 11/06/2026 Urine 06/25/2025 9:12 AM EDT Benny Watt MD POINT OF CARE TEST ORDER JESSIKA Final Result * (ABNORMAL) POC Albumin/Creatinine Ratio Urine (06/25/2025 9:08 AM EDT) POC ALBUMIN, URINE 30 mg/L POC CREATININE, URINE 100 mg/dL POC Urine Albumin Creatinine Ratio 30-300 mg/g <30 Lot Number [id number] Expiration Date 02/18/2026 Urine 06/25/2025 9:08 AM EDT Benny Watt MD POINT OF CARE TEST ORDER JESSIKA Final Result * SCANNED - MAMMO (07/04/2022) Anatomical Region Laterality Modality Other Benny Watt MD CHART REVIEW TABS Fin al Result from Last 3 Months or Most Recently Relevant to Health Maintenance Insurance [facility] Care Teams Ward Maid Relationship Specialty Start Date End Date Benny Watt MD [address] [facility] [place] [address] PCP - General Family Medicine 02/23/22
--- OUTSIDE RECORDS SUMMARY | 2025-08-31 16:00 | XMS_ITS | Encounter Summary ---
[facility] Organization [facility] Address [address] [place] [address] Care Team Providers Care Veneer Lathe Operator Name Role Phone Benny Watt MD Primary Care Provider + Reason for Visit * Reason Onset Date Comments Med Refill 07/26/2025 Encounter Details Date Type Department Care Team (Late st Contact Info) Description 07/26/2025 Refill [facility] [address] [place] [address] Benny Watt MD [address] [place] [address] Foraminal stenosis of cervical region; Arthritis of lumbar spine; Chronic pain syndrome Social History Tobacco Use Types Packs/Day Years Used Date Smoking Tobacco: Former Cigarettes 0.3 45.5 0 06/10/1976 - 12/16/2021 Electronic Cigarette Smokeless Tobacco: Never Comments:Quit cigarette star dahiana vaping 6mg. Alcohol Use Standard Drinks/Week Comments Not Currently 0 (1 standard drink = 0.6 oz pure alcohol) Occasional beer in summer at [facility] PHQ-2 Answer Date Recorded Retired PHQ-9: Brief Depression Severity Measure Score 16 11/30/2022 PHQ-2 Answer Date Recorded Patient Health Questionnaire-2 Score 0 06/25/2025 Comments Unknown Sex and Gender Information Value Date Recorded Sex Assigned at Female 06/18/2025 7:55 AM EDT Legal Sex Female 12:08 PM EDT Gender Identity Not on file Sexual Orientation Not on file documented as of this encounter Miscellaneous Notes * Telephone Encounter - Gamaliel Rdz MD - 07/27/2025 1:50 PM EDT Bradly reviewed 07/27/2025 . Follow up appt is scheduled on 12/21/2025 . Last office visit : 06/25/2025 documented in this encounter Plan of Treatment Upcoming Encounters Date Type Department Care Team (Late st Contact Info) Description 12/21/2025 8:15 AM EST Office Visit [facility] [address] [place] [address] Benny Watt MD [address] [place] [address] documented as of this encounter Visit Diagnoses Diagnosis Foraminal stenosis of cervical region Arthritis of lumbar spine Chronic pain syndrome documented in this encounter Additional Health Concerns Assessment Noted Time PHQ-2 Depression Total Score: 2 12/03/19 24 8:52 AM EST documented as of this encounter Care Teams Veneer Lathe Operator Relationship Specialty Start Date End Date Benny Watt MD [address] [place] [address] PCP - General Family Medicine 02/23/22 documented as of this encounter
--- OUTSIDE RECORDS SUMMARY | 2025-08-31 16:00 | XMS_ITS | Encounter Summary ---
[facility] Address [address] [place] [address] Care Team Providers Care Bottle Capper Name Role Phone Benny Watt MD Primary Care Provider + Reason for Visit * Reason Onset Date Comments Med Management 07/30/2025 Encounter Details Date Type Department Care Team (Late st Contact Info) Description 07/30/2025 Telephone [facility] [address] [facility] [place] [address] Christopher Kern, [employer] [address] [place] [address] Med Management Social History Tobacco Use Types Packs/Day Years Used Date Smoking Tobacco: Former Cigarettes 0.3 45.5 0 06/10/1976 - 12/16/2021 Electronic Cigarette Smokeless Tobacco: Never Comments:Quit cigarette star dahiana vaping 6mg. Alcohol Use Standard Drinks/Week Comments Not Currently 0 (1 standard drink = 0.6 oz pure alcohol) Occasional beer in summer at [facility] PHQ-2 Answer Date Recorded Retired PHQ-9: Brief [...] encounter Miscellaneous Notes * Telephone Encounter - Joelle Rasmussen RegSched Rep - 07/30/2025 3:43 PM EDT PATIENT WAS NEEDING HER [facility] documented in this encounter Plan of Treatment Upcoming Encounters Date Type Department Care Team (Late st Contact Info) Description 12/21/2025 8:15 AM EST Office Visit [facility] [address] [place] [address] Benny Watt MD [address] [place] [address] documented as of this encounter Visit Diagnoses Diagnosis Bipolar 1 disorder, depressed, partial remission documented in this encounter Additional Health Concerns Assessment Noted Time PHQ-2 Depression Total Score: 2 12/03/19 24 8:52 AM EST documented as of this encounter Care Teams Bottle Capper Relationship Specialty Start Date End Date Benny Watt MD [address] [place] [address] PCP - General Family Medicine 02/23/22 documented as of this encounter
--- OUTSIDE RECORDS SUMMARY | 2025-08-31 16:00 | XMS_ITS | Encounter Summary ---
[facility] Address [address] [place] [address] Care Team Providers Care Checker In Name Role Phone Benny Watt MD Primary Care Provider + Reason for Visit * Reason Onset Date Comments Med Management 08/03/2025 Encounter Details Date Type Department Care Team (Late st Contact Info) Description 08/03/2025 Telephone [facility] [address] [facility] [place] [address] Christopher Kern, CLOTH CUTTING MACHINE OPERATOR [address] [place] [address] Med Management Social History Tobacco [...] encounter Miscellaneous Notes * Telephone Encounter - Christopher Kern APRN - 08/04/2025 7:57 AM EDT Okay, great thank you. I can resend the prescription if needed. * Telephone Encounter - Breanna Locke - 08/03/2025 2:43 PM EDT Dinorah requested that the pharmacy be changed from [facility] in [place] to [place]. I contacted [facility] in [place] and requested for the medication of ziprasidone (GEODON) 60 MG capsule yenny pulled from the [facility] in [place], the pharmacists stated she would take care of it. * Telephone Encounter - Joelle Rasmussen RegSched Rep - 08/03/2025 9:16 AM EDT ZIPRASIDONE WAS SENT TO [facility] IN [place] BUT IT NEEDED TO BE SENT TO [facility] IN [place] documented in this encounter Plan of Treatment Upcoming Encounters Date Type Department Care Team (Late st Contact Info) Description 12/21/2025 8:15 AM EST Office Visit [facility] [address] [facility] [place] [address] Benny Watt MD [address] [place] [address] documented as of this encounter Visit Diagnoses Not on filedocumented in this encounter Additional Health Concerns Assessment Noted Time PHQ-2 Depression Total Score: 2 12/03/19 24 8:52 AM EST documented as of this encounter Care Teams Checker In Relationship Specialty Start Date End Date Benny Watt MD [address] [place] [address] PCP - General Family Medicine 02/23/22 documented as of this encounter
--- OUTSIDE RECORDS SUMMARY | 2025-08-31 16:00 | XMS_ITS | Encounter Summary ---
[facility] Address [address] [place] [address] Care Team Providers Care License Issuer Name Role Phone Benny Watt MD Primary Care Provider + Reason for Visit * Reason Onset Date Comments Med Refill 08/24/2025 Encounter Details Date Type Department Care Team (Late st Contact Info) Description 08/24/2025 Refill [facility] [address] [place] [address] Gmaaliel Rdz MD [address] [place] [address] Foraminal stenosis of cervical region; [...] pure alcohol) Occasional beer in summer at [facility] PHQ-2 Answer Date Recorded Retired PHQ-9: Brief Depression Severity Measure Score 16 11/30/2022 PHQ-2 Answer Date Recorded Patient Health Questionnaire-2 Score 0 06/25/2025 Comments Unknown Sex and Gender Information Value Date Recorded Sex Assigned at Female 06/18/2025 7:55 AM EDT Legal Sex Female 12:08 PM EDT Gender Identity Not on file Sexual Orientation Not on file documented as of this encounter Plan of Treatment Upcoming Encounters Date Type Department Care Team (Late st Contact Info) Description 12/21/2025 8:15 AM EST Office Visit [facility] [address] [place] [address] Benny Watt MD [address] [place] [address] documented as of this encounter Visit Diagnoses Diagnosis 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
--- OUTSIDE RECORDS SUMMARY | 2025-08-31 16:00 | XMS_ITS | Encounter Summary ---
[facility] [address] [place] [address] Care Team Providers Care Food Writer Name Role Phone Benny Watt MD Primary Care Provider + Reason for Visit * Reason Onset Date Comments Med Refill 02/23/2025 Encounter Details Date Type Department Care Team (Late st Contact Info) Description 02/23/2025 Refill [facility]ICINE [address] [place] [address] Benny Watt MD [address] [place] [address] Arthritis of lumbar spine; Foraminal stenosis of cervical region; Chronic pain syndrome Social History Tobacco Use Types Packs/Day Years Used Date Smoking Tobacco: Some Days Cigarettes 0.3 45.5 Started: 976; Last attempted to quit: 12/16/2021 Electronic Cigarette Smokeless Tobacco: Never Comments:Quit cigarette star dahiana vaping 6mg. Alcohol Use Standard Drinks/Week Comments Not Currently 0 (1 standard drink = 0.6 oz pure alcohol) Occasional beer in summer at [facility] PHQ-2 Answer Date Recorded Retired PHQ-9: Brief Depression Severity Measure Score 16 11/30/2022 PHQ-2 Answer Date Recorded Retired PHQ-9: Brief Depression Severity Measure Score 14 12/03/2023 Comments Unknown Sex and Gender Information Value Date Recorded Sex Assigned at Female 06/18/2025 7:55 AM EDT Legal Sex Female 12:08 PM EDT Gender Identity Not on file Sexual Orientation Not on file documented as of this encounter Plan of Treatment Upcoming Encounters Date Type Department Care Team (Late st Contact Info) Description 12/21/2025 8:15 AM EST Office Visit [facility] MEDICINE [address] [address] Benny Watt MD [address] [place] [address] documented as of this encounter Visit Diagnoses Diagnosis Arthritis of lumbar spine Foraminal stenosis of cervical region Chronic pain syndrome documented in this encounter Additional Health Concerns Assessment Noted Time PHQ-2 Depression Total Score: 2 12/03/19 24 8:52 AM EST documented as of this encounter Care Teams Food Writer Relationship Specialty Start Date End Date Benny Watt MD [address] [place] [address] PCP - General Family Medicine 02/23/22 documented as of this encounter
--- OUTSIDE RECORDS SUMMARY | 2025-08-31 16:00 | XMS_ITS | Encounter Summary ---
[facility] Address [address] [place] [address] Care Team Providers Care Lay Out And Detail Drafter Name Role Phone Benny Watt MD Primary Care Provider + Encounter Details Date Type Department Care Team (Late Contact Info) Description 06/26/2025 Results Follow-Up [facility]INE [address] [place] [address] Benny Watt MD [address] [place] [address] Social History Tobacco Use Types Packs/Day Years Used Date Smoking Tobacco: Former Cigarettes 0.3 45.5 0 06/10/1976 - 12/16/2021 Electronic Cigarette Smokeless Tobacco: Never Comments:Quit cigarette star dahiana vaping 6mg. Alcohol Use Standard Drinks/Week Comments Not Currently 0 (1 standard drink = 0.6 oz pure alcohol) Occasional beer in summer at [facility] PHQ-2 Answer Date Recorded Retired PHQ-9: [...] Description 12/21/2025 8:15 AM EST Office Visit [facility] [address] [place] [address] Benny Watt MD [address] [place] [address] documented as of this encounter Visit Diagnoses Diagnosis Stage 3a chronic kidney disease (CKD)- Primary documented in this encounter Additional Health Concerns Assessment Noted Time PHQ-2 Depression Total Score: 2 12/03/19 24 8:52 AM EST documented as of this encounter Care Teams Lay Out And Detail Drafter Relationship Specialty Start Date End Date Benny Watt MD [address] [place] [address] PCP - General Family Medicine 02/23/22 documented as of this encounter
--- OUTSIDE RECORDS SUMMARY | 2025-08-31 16:00 | XMS_ITS | Encounter Summary ---
[facility] [address] [place] [address] Care Team Providers Care Film Archivist Name Role Phone Benny Watt MD Primary Care Provider + Reason for Visit * Reason Onset Date Comments Med Refill 06/23/2022 Encounter Details Date Type Department Care Team (Late Contact Info) Description 06/23/2022 Refill [facility] MEDICINE [address] [facility] [place] [address] Benny Watt MD [address] [facility] [place] [address] Arthritis of lumbar spine; Foraminal stenosis of cervical region; Chronic pain syndrome Social History Tobacco Use Types Packs/Day Years Used Date Smoking Tobacco: Every Day Cigarettes 1 40 Smokeless Tobacco: Never Comments:pt currently vaping PHQ-2 Answer Date Recorded Retired PHQ-9: Brief Depression Severity Measure Score 0 05/26/2022 Comments Unknown Sex and Gender Information Value Date Recorded Sex Assigned at Female 06/18/2025 7:55 AM EDT Legal Sex Female 12:08 PM EDT Gender Identity Not on file Sexual Orientation Not on file documented as of this encounter Plan of Treatment Upcoming Encounters Date Type Department Care Team (Late st Contact Info) Description 12/21/2025 8:15 AM EST Office Visit [facility] MEDICINE [address] [facility] [address] [place] [address] Benny Watt MD [address] [place] [address] documented as of this encounter Visit Diagnoses Diagnosis Arthritis of lumbar spine Foraminal stenosis of cervical region Chronic pain syndrome documented in this encounter Care Teams Film Archivist Relationship Specialty Start Date End Date Benny Watt MD [address] [place] [address] PCP - General Family Medicine 02/23/22 documented as of this encounter
--- OUTSIDE RECORDS SUMMARY | 2025-08-31 16:00 | XMS_ITS | Encounter Summary ---
[facility] [address] [place] [address] Care Team Providers Care Laboratory Supervisor Name Role Phone Benny Watt MD Primary Care Provider + Reason for Visit * Reason Onset Date Comments Med Refill 07/31/2025 Encounter Details Date Type Department Care Team (Late st Contact Info) Description 07/31/[address] [facility]INE [address] [place] [address] Christopher Kern, PROFESSOR OF ENGLISH [address] [place] [address] Bipolar 1 disorder, depressed, partial remission Social History Tobacco Use Types Packs/Day Years Used Date Smoking Tobacco: Former Cigarettes 0.3 45.5 0 06/10/1976 - 12/16/2021 Electronic Cigarette Smokeless Tobacco: Never Comments:Quit cigarette star dahiana vaping 6mg. Alcohol Use Standard Drinks/Week Comments Not Currently 0 (1 standard drink = 0.6 oz pure alcohol) Occasional beer in summer at [facility] PHQ-2 Answer Date Recorded Retired PHQ-9: [...] Description 12/21/2025 8:15 AM EST Office Visit [facility] MEDICINE [address] [place] [address] Benny Watt MD [address] [place] [address] documented as of this encounter Visit Diagnoses Diagnosis Bipolar 1 disorder, depressed, partial remission documented in this encounter Additional Health Concerns Assessment Noted Time PHQ-2 Depression Total Score: 2 12/03/19 24 8:52 AM EST documented as of this encounter Care Teams Laboratory Supervisor Relationship Specialty Start Date End Date Benny Watt MD [address] [place] [address] PCP - General Family Medicine 02/23/22 documented as of this encounter
--- OUTSIDE RECORDS SUMMARY | 2025-08-31 16:00 | XMS_ITS | Encounter Summary ---
[facility] [address] [place] [address] Care Team Providers Care Health Services Administrator Name Role Phone Benny Watt MD Primary Care Provider + Encounter Details Date Type Department Care Team (Late st Contact Info) Description 07/30/2025 Refill [facility] [address] [place] [address] Benny Watt MD [address] [place] [address] Bipolar 1 disorder, depressed, partial remission Social History Tobacco Use Types Packs/Day Years Used Date Smoking Tobacco: Former Cigarettes 0.3 45.5 0 06/10/1976 - 12/16/2021 Electronic Cigarette Smokeless Tobacco: Never Comments:Quit cigarette star dahiana vaping 6mg. Alcohol Use Standard Drinks/Week Comments Not Currently 0 (1 standard drink = 0.6 oz pure alcohol) Occasional beer in summer at [facility] PHQ-2 Answer Date Recorded Retired PHQ-9: Brief [...] encounter Miscellaneous Notes * Telephone Encounter - Claire Christine RegSched Rep - 07/30/2025 1:00 PM EDT Incoming Refill Request Medication requested (name and dose): ziprasizone 60mg capsule Pharmacy where [facility] should be sent: [facility] Additional details provided by patient: she is out of refills and the pharmacy is saying they have been trying to contact the office to get an approval of the refill Best call back number: [phone] Does the patient have less than a 3 day supply: [x] Yes [] No Dante Infante 07/30/25, 13:01 EDT documented in this encounter Plan of Treatment Upcoming Encounters Date Type Department Care Team (Late st Contact Info) Description 12/21/2025 8:15 AM EST Office Visit [facility] MEDICINE [address] [place] [address] Benny Watt MD [address] [place] [address] documented as of this encounter Visit Diagnoses Diagnosis Bipolar 1 disorder, depressed, partial remission documented in this encounter Additional Health Concerns Assessment Noted Time PHQ-2 Depression Total Score: 2 12/03/19 24 8:52 AM EST documented as of this encounter Care Teams Health Services Administrator Relationship Specialty Start Date End Date Benny Watt MD [address] [place] [address] PCP - General Family Medicine 02/23/22 documented as of this encounter
[2025-08-31 16:10] LABS: Coronavirus 19, PCR Not Detected (NotDetected); Influenza A, PCR Not Detected (NotDetected); Influenza B, PCR Not Detected (NotDetected)
--- NOTE | 2025-08-31 16:10 | CT_ITS ---
PROCEDURE INFORMATION: Exam: CTA Chest With Contrast Exam date and time: 08/31/2025 5:23 PM Age: 65 years old Clinical indication: Shortness of breath and other: SOA, pleuritic cp, tachycardia TECHNIQUE: Imaging protocol: Computed tomographic angiography of the chest with contrast. Exam focused on the arteries. 3D rendering (Not supervised by radiologist): MIP and/or 3D reconstructed images were created by the technologist. Radiation optimization: All CT scans at this facility use at least one of these dose optimization techniques: automated exposure control; mA and/or kV adjustment per patient size (includes targeted exams where dose is matched to clinical indication); or iterative reconstruction. Contrast material: ISOVUE; Contrast volume: 70 ml; Contrast route: INTRAVENOUS (IV); COMPARISON: CT LUNG SCREENING 12/25/2019 9:27 AM FINDINGS: Pulmonary arteries: There is an acute appearing thrombus in the right main pulmonary artery extending into the right lower lobe pulmonary arteries. Aorta: Unremarkable. No aortic aneurysm. No aortic dissection. Lungs: Right lower lobe ground-glass opacity is most likely a pulmonary infarction. There is a left upper lobe mass measuring 4.6 x 4 cm on image 43 series 5. Mild scarring and atelectasis in the lower lungs. Pleural spaces: Small right pleural effusion. Heart: Unremarkable. No cardiomegaly. No pericardial effusion. Lymph nodes: There is a left-sided mediastinal lymph node measuring 10 mm in short axis on image 40 series 5. Liver: There is a left hepatic focus of enhancement measuring 2.6 cm on image 101 series 5. Adrenal glands: Left adrenal gland nodules measuring 3.4 and 2.7 cm. Bones/joints: Unremarkable. No acute fracture. Soft tissues: Unremarkable. Other findings: Stigmata of old granulomatous disease. IMPRESSION: 1. There is an acute appearing thrombus in the right main pulmonary artery extending into the right lower lobe pulmonary arteries. No evidence of right heart strain. 2. Right lower lobe ground-glass opacity is most likely a pulmonary infarction. 3. There is a left upper lobe mass measuring 4.6 x 4 cm on image 43 series 5. This is most likely malignancy. 4. There is a left-sided mediastinal lymph node measuring 10 mm in short axis on image 40 series 5. Please direct attention to this on follow-up studies. 5. Left adrenal gland nodules measuring 3.4 and 2.7 cm. Please direct attention to this on follow-up studies as this could be metastatic disease. 6. There is a left hepatic focus of enhancement measuring 2.6 cm on image 101 series 5. This is of indeterminate significance. Please direct attention to this on follow-up studies. 7. Small right pleural effusion. 8. THIS REPORT CONTAINS FINDINGS THAT MAY BE CRITICAL TO PATIENT CARE. The findings were verbally communicated via telephone conference with Theresa Contreras at 5:45 PM EST on 08/31/2025. The findings were acknowledged and understood.
[2025-08-31 16:25] LABS: Hematocrit 35.0 % (37.0-47.0); Hemoglobin 11.6 g/dL (12.2-16.2); Immature Granulocytes % 0.5 %; Mean Corpuscular HGB Conc 33.1 g/dL (31.8-35.4); Mean Corpuscular Hemoglobin 28.1 pg (27.0-31.2); Mean Corpuscular Volume 84.7 fl (81-99); Nucleated Red Blood Cells % 0 %; Platelet Count 226 K/mm3 (142-424); Red Blood Count 4.13 M/mm3 (4.20-5.40); Red Cell Distribution Width-SD 39.3 fL; White Blood Count 9.6 K/mm3 (4.8-10.8)
[2025-08-31 16:42] LABS: Alanine Aminotransferase 15 U/L (12-78); Alkaline Phosphatase 74 U/L (38-126); Anion Gap 11.4 mEq/L (5-15); Aspartate Amino Transferase 26 U/L (14-36); Bilirubin,Total 0.9 mg/dl (0.2-1.3); Blood Urea Nitrogen 22 mg/dl (7-17); Calcium 9.3 mg/dl (8.4-10.2); Carbon Dioxide 29 mmol/L (22.0-30.0); Chloride 95 mmol/L (98-107); Creatinine Clearance Estimated 56 mL/min (50-200); Creatinine,Serum 1.30 mg/dl (0.52-1.04); Estimated Glomerular Filt Rate 41 ml/min (>60); GFR (African American) 50 ML/MIN (>60); Glucose 114 mg/dl (74-100); Lipase 98 U/L (23-300); Potassium 3.4 mmoL/L (3.5-5.1); Sodium 132 mmol/L (136-145); Total Protein,Serum 8.1 g/dl (6.3-8.2)
[2025-08-31 16:58] LABS: Albumin Level 4.1 g/dl (3.5-5.0); Albumin/Globulin Ratio 1.0 (1.1-1.8); Globulin 4.0 g/dL (1.3-3.2); Troponin I < 0.01 ng/ml (0.00-0.034)
[2025-08-31] MEDS: ACETAMINOPHEN 1,000MG/100ML VIAL 1000 MG IV (17:07)
[2025-08-31] MEDS: IOPAMIDOL-370 (76%);100ML BOTTLE 70 ML IV (17:26)
[2025-08-31] MEDS: 0.9 % SODIUM CHLORIDE 50 ML VIAL IV (17:26)
[2025-08-31] MEDS: SODIUM CHLORIDE 0.9% 10ML SYR (RAD ONLY) 10 ML IV (17:26)
[2025-08-31 19:25] LABS: Activated Partial Thrombo Time 28.6 seconds (22.8-30.6); INR 1.00 (0.9-1.1); Prothrombin Time 11.1 seconds (10.1-12.5)
--- NOTE | 2025-08-31 20:16 | PC.NURSE ---
Contacted Clerical Clerk for admission
[2025-08-31 20:20] LABS: Troponin I < 0.01 ng/ml (0.00-0.034)
--- NOTE | 2025-08-31 20:49 | PC.NURSE ---
Addendum entered by Monica Stubbs RN 08/31/25 20:56: called back to get report at this time. Original Note: attempted to call report at this time. Receiving RN will call back when available
--- NOTE | 2025-08-31 20:58 | PC.NURSE ---
Report given to RN on [employer]
[2025-08-31] MEDS: LACTATED RINGERS 1000ML 1,000 ML 50 ML IV (21:09)
[2025-08-31] MEDS: PANTOPRAZOLE 40MG TABLET 40 MG PO (21:58)
[2025-08-31 23:07] LABS: Troponin I < 0.01 ng/ml (0.00-0.034)
--- NOTE | 2025-08-31 23:22 | P.HP_ITS ---
<Statement entered by Davion Hart MD - 09/01/25 15:03> Rounded on patient after nurse practitioner. Personally examined and interviewed patient. Agree with exam findings and care plan as documented. History of Present Illness *Admission Date: 08/31/25 *Reason for visit:: Dyspnea and chest pain *History of present illness: 65-year-old female patient presents to ER with complaints of shortness of breath that she has had for months. She also has some right sided chest pain specifically over the right lower ribs. Sometimes the pain radiates around to her back. She denies cough, fever chills or bodyaches. She is on Lasix for some lower extremity swelling but has not had any worsening of that recently. She states her shortness of breath occurs with minimal activity, no shortness of breath at rest. Medical history includes bipolar disorder, depression, CKD 3, HTN and HLD. Presents tachycardic at 105 with a pulse ox of 93 to 94%. She does have history of smoking and vaping, quit in May. No history of DVT or PE. [facility] Disclaimer: The information contained in this section may have been updated after the patient was seen, as this information can be updated by other users. Medical History (Updated 08/31/25 @ 23:45 by Janet Recinos APRN) Depression Anxiety Hyperlipidemia Hypertension Chronic kidney disease Surgical History (Updated 08/31/25 @ 22:26 by Monica Stubbs RN) H/O eye surgery Family History (Updated 08/31/25 @ 23:29 by Janet Recinos APRN) Other No significant family history Social History (Updated 08/31/25 @ 22:26 by Monica Stubbs RN) Smoking Status: Former smoker tobacco type: cigarettes packs per day: 1 second hand exposure: No alcohol intake: never substance use type: denies use current occupational status: other Travel in the last 8 weeks?: None household members: spouse housing: house current occupational exposures/hazards: No caffeine: Yes Have you lived/traveled outside US in past 30 days?: No Contact w/someone who lives/traveled outside US past 30 days?: No Exposure to someone with infectious disease in past 14 days?: No Do you have a fever (greater than 100.4 F or 38 C)?: No Have you tested positive for COVID-19?: No Exposed to someone with COVID-19 in past 14 days?: No Do you have a sore throat?: No Do you have a cough?: No Do you have any weakness?: No Do you have any diarrhea?: No Are you experiencing any unusual bleeding?: No Do you have any muscle aches/pain?: No Do you have any abdominal pain?: No Are you experiencing loss of taste or smell?: No Other Medical History Have you received the Flu Vaccine for this season: No Have you received the Pneumonia Vaccine: No Review of Systems Constitutional Constitutional: Denies body ache(s), Denies chills, Denies fever(s) and Denies h eadache(s) Eyes Eyes: Reports system reviewed and no additional complaints, except as documented ENT Ears, Nose, Mouth, and Throat: Reports system reviewed and no additional complaints, except as documented and Denies headache(s) *Cardiovascular Cardiovascular: Reports chest pain and Reports dyspnea *Respiratory Respiratory: Reports dyspnea *Gastrointestinal Gastrointestinal: Denies abdominal pain, Denies nausea and Denies vomiting *Genitourinary Genitourinary: Denies dysuria *Musculoskeletal Musculoskeletal: Reports system reviewed and no additional complaints, except as documented *Neurologic Neurologic: Denies confusion and Denies headache(s) Psychiatric Psychiatric: Denies confusion Endocrine Endocrine: Reports system reviewed and no additional complaints, except as documented Hematologic/Lymphatic Hematologic/Lymphatic: Reports system reviewed and no additional complaints, except as documented Meds Home Medications and Allergies Home Medications ?Medication ?Instructions ?Recorded ?Confirmed ?Type bisoprolol 10 1 each PO DAILY High blood p ressure 04/26/20 08/31/25 History mg-hydrochlorothiazide 6.25 mg tablet diazepam 10 mg tablet 10 mg PO TID PRN Anxiety 04/1008/31/25 History hydrochlorothiazide 12.5 mg capsule 12.5 mg PO DAILY H igh blood 04/26/20 08/31/25 History pressure lovastatin 10 mg tablet 10 mg PO DAILY Cholesterol 0 04/26/20 08/31/25 History amitriptyline 25 mg tablet 25 mg PO HS 08/31/25 History cyclobenzaprine 5 mg tablet 5 mg PO TID PRN Pain 08/3108/31/25 History empagliflozin 10 mg tablet 10 mg PO DAILY 08/31/2508/15 History (Jardiance) famotidine 20 mg tablet 20 mg PO BID 08/31/25 History furosemide 40 mg tablet 40 mg PO DAILY PRN Edema 08/1508/31/25 History hydrocodone 5 mg-acetaminophen 325 1.5 tab PO Q8H PRN Pain 08/31/25 08/31/25 History mg tablet lisinopril 5 mg tablet 5 mg PO DAILY 08/31/2508/31 History omeprazole 40 mg capsule,delayed 40 mg PO DAILY 08/31/25 History release potassium chloride 20 mEq 20 meq PO DAILY 08/31/2508/15 History tablet,extended release(part/cryst) ziprasidone HCl 60 mg capsule 60 mg PO BID 08/31/25 History New Prescriptions to Start Prescriptions: Allergies Allergy/AdvReac Type Severity Reaction Status Date / Time codeine AdvReac Mild Nausea Verified 08/31/25 22:04 Exam Data for Last 24 hours Vital signs and Labs for Last 24 Hours: Temp Pulse Resp BP Pulse Ox O2 Del Method 98.9 F 102 H 16 103/71 L 97 Room Air 08/31/25 21:14 08/31/25 21:14 08/31/25 21:14 08/31/25 21:14 08/31/25 21:00 08/31/25 21:14 Laboratory Results - last 24 hr 08/31/25 15:50: SARS-CoV-2 (PCR) Not detected, Influenza A Untype (PCR) Not detected, Influenza Type B (PCR) Not detected 08/31/25 16:15: WBC 9.6, RBC 4.13 L, Hgb 11.6 L, Hct 35.0 L, MCV 84.7, MCH 28.1, MCHC 33.1, RDW 12.8, Plt Count 226, MPV 10.8 H, Neut % (Auto) 83.2 H, Lymph % (Auto) 8.7 L, [place] % (Auto) 6.9, Eos % (Auto) 0.5, Baso % (Auto) 0.2, Neut # (Auto) 8.0 H, Lymph # (Auto) 0.8, [place] # (Auto) 0.7, Eos # (Auto) 0.1, Baso # (Auto) 0.0, PT 11.1, INR 1.00, APTT 28.6, Sodium 132 L, Potassium 3.4 L, Chloride 95 L, Carbon Dioxide 29, Anion Gap 11.4, BUN 22 H, Creatinine 1.30 H, Estimated Creat Clear 56, Estimated GFR 41 L, Est GFR ( Amer) 50 L, Glucose 114 H, Calcium 9.3, Total Bilirubin 0.9, AST 26, ALT 15, Alkaline Phosphatase 74, Troponin I < 0.01, Total Protein 8.1, Albumin 4.1, Globulin 4.0 H, Albumin/Globulin Ratio 1.0 L, Lipase 98 08/31/25 18:48: Troponin I < 0.01 08/31/25 22:26: Troponin I < 0.01 I & O for Last 24 hours: Intake & Output 08/28/25 08/29/25 08/30/25 08/31/25 23:59 23:59 23:59 23:59 Weight 81.647 kg Constitutional Constitutional: no acute distress *Routine HEENT Exam Head: Present normocephalic and atraumatic Eye: Present PERRL ENT: Present mucous membranes moist *Routine Neck Exam Neck: Present supple *Routine Respiratory Exam Respiratory: Present CTA bilaterally and diminished air movement (Diminished breath sounds on the left) *Routine Cardiovascular Exam Cardiovascular: Present RRR, Normal S1, Normal S2 and tachycardia *Routine Abdominal Exam Abdominal: Present soft and normoactive bowel sounds; Absent tenderness *Routine Rectal Exam Rectal:: deferred *Routine Genitalia Exam Genitalia:: deferred *Routine Extremities Exam Extremities: Present pulses intact; Absent edema *Routine Skin Exam Skin: Present intact, dry and warm *Routine Neurological Exam Neurological: Present alert, oriented X3 and moving all extremities H&P: Result Imaging and Cardiology CT scan - chest: Additional comments: Acute appearing thrombus right main pulmonary artery extending into the right lower lobe pulmonary arteries with no evidence of right heart strain. Ground glass opacity right lower lobe suggest pulmonary infarction. Left upper lobe mass 4.6 x 4 cm. Left sided mediastinal lymph node. Left adrenal gland nodules 3.4 and 2.7 cm. Left hepatic focus of enhancement 2.6 cm. Small right pleural effusion Assessment and Plan *Assessment and plan (1) Pulmonary emboli: Status: Acute Qualifiers: Pulmonary embolism type: single subsegmental (without acute cor pulmonale) Qualified Code(s): I26.93 - Single subsegmental thrombotic pulmonary embolism without acute cor pulmonale Category: Medical Code(s): I26.99 - Other pulmonary embolism without acute cor pulmonale (2) Lung mass: Status: Acute Category: Medical Code(s): R91.8 - Other nonspecific abnormal finding of lung field (3) Hyponatremia: Status: Acute Category: Medical Code(s): E87.1 - Hypo-osmolality and hyponatremia (4) JULIA (acute kidney injury): Status: Acute Category: Medical Code(s): N17.9 - Acute kidney failure, unspecified (5) Liver lesion: Status: Acute Category: Medical Code(s): K76.9 - Liver disease, unspecified (6) Lesion of adrenal gland: Status: Acute Category: Medical Code(s): E27.9 - Disorder of adrenal gland, unspecified Plan Discussed with ED physician and agreed to admit this patient for further workup and treatment. She has been started on full dose Lovenox for PE treatment. Will obtain venous Doppler in the morning. Monitor on continuous pulse oximetry as well as cardiac monitoring. Will consult pulmonology for the new finding of a left lung mass. There is also concern for metastatic disease in the adrenals as well as the liver. Informed patient of the plan of care and she is agreeable. She wishes to be a full code. Will continue IV fluids and repeat labs in the morning. Their electrolyte replacement protocol has been ordered as well. Nasal cannula oxygen has been ordered should she become hypoxic.
[2025-09-01] VITALS: BP 94/52; PULSE 100; PULSE 114; RESP 18; TEMP 36.8; O2SAT 100
[2025-09-01 04:00] VITALS: BP 110/75; PULSE 95; RESP 16; TEMP 36.8; O2SAT 96; BMI 29.8
[2025-09-01 06:53] LABS: Hematocrit 31.7 % (37.0-47.0); Immature Granulocytes % 0.5 %; Mean Corpuscular HGB Conc 32.8 g/dL (31.8-35.4); Mean Corpuscular Hemoglobin 27.7 pg (27.0-31.2); Mean Corpuscular Volume 84.5 fl (81-99); Nucleated Red Blood Cells % 0 %; Platelet Count 203 K/mm3 (142-424); Red Blood Count 3.75 M/mm3 (4.20-5.40); Red Cell Distribution Width-SD 39.1 fL; White Blood Count 7.7 K/mm3 (4.8-10.8)
[2025-09-01 07:18] LABS: Alanine Aminotransferase 15 U/L (12-78); Albumin Level 3.5 g/dl (3.5-5.0); Albumin/Globulin Ratio 1.0 (1.1-1.8); Alkaline Phosphatase 82 U/L (38-126); Anion Gap 10.1 mEq/L (5-15); Aspartate Amino Transferase 22 U/L (14-36); Bilirubin,Total 0.9 mg/dl (0.2-1.3); Blood Urea Nitrogen 15 mg/dl (7-17); Calcium 8.8 mg/dl (8.4-10.2); Carbon Dioxide 27 mmol/L (22.0-30.0); Chloride 97 mmol/L (98-107); Creatinine Clearance Estimated 66 mL/min (50-200); Creatinine,Serum 1.10 mg/dl (0.52-1.04); Estimated Glomerular Filt Rate 50 ml/min (>60); GFR (African American) 61 ML/MIN (>60); Globulin 3.5 g/dL (1.3-3.2); Glucose 127 mg/dl (74-100); Potassium 3.1 mmoL/L (3.5-5.1); Sodium 131 mmol/L (136-145); Total Protein,Serum 7.0 g/dl (6.3-8.2)
[2025-09-01 07:42] LABS: Hemoglobin 10.6 g/dL (12.2-16.2)
--- NOTE | 2025-09-01 07:54 | HMH.PHAINT1 ---
Pharmacy Intervention Comments: HOME MEDICATION LIST VERIFIED USING LIST FROM OUTPATIENT PHARMACY AND PHYSICIAN OFFICE
[2025-09-01 08:00] VITALS: BP 135/79; PULSE 100; RESP 16; TEMP 37; O2SAT 96
[2025-09-01] MEDS: BISOPROLOL 5MG TABLET 10 MG PO (09:00)
[2025-09-01] MEDS: FAMOTIDINE 20MG TABLET 20 MG PO (09:00)
[2025-09-01] MEDS: EMPAGLIFLOZIN 10MG TABLET 10 MG PO (09:00)
[2025-09-01] MEDS: ZIPRASIDONE 20MG CAPSULE 60 MG PO (09:01)
[2025-09-01] MEDS: POTASSIUM CHLORIDE 20MEQ TAB 40 MEQ PO ×2 (09:02→14:18)
--- NOTE | 2025-09-01 09:37 | CA_ITS ---
APPROVED REPORT EXAM: Comprehensive 2D, Doppler, and color-flow Echocardiogram Retail Analytics Manager: Jessica Gabriel, RCS, RVS Ht: 5 ft 4 in Wt: 185lbs BSA: 1.89 BP: 103/71 mmHg Indications: Ex-smoker, PE, Lung mass 2D Dimensions IVSd 0.92 cm LVEF (Visual) 73.70 % PWd 1.05 cm LA Volume 49.30 mL LVDd 3.47 cm LA Volume Index 26.024865 mL/m2 (M/F) 16-34 LVDs 2.02 cm EF AP4 70.20 % Left Atrium 3.13 cm GL Strain -21.8 % M-Mode Dimensions LA Diam 4.00 cm (1.9-4.0) EPSs 0.65 cm TAPSE 2.63 (<1.7) LV Diastology E Decel Time 157 (160-240 msec) E/A Ratio 0.83 MED A' 10.00 cm/s LAT A' 13.40 cm/s Aortic Valve ARIAS Index 1.54 cm2/m2 AoV Peak Seun. 110.0 (50-130 cm/s) AO Peak GR. 4.80 mmHg AO Mean GR. 2.40 (<5 mmHg) AO VTI 19.7 (18-25 cm) ARIAS (VTI) 2.98 (2.5-4.5 cm2) Mitral Valve MV A Velocity 79.0 (40-130 cm/s) E/A Ratio 0.83 Pulmonary Valve PV Peak Velocity 128.0 (50-150 cm/s) Tricuspid Valve TR P. Velocity 244.00 cm/s RAP Estimate 10.00 mmHg RVSP 33.80 mmHg Left Ventricle The left ventricle is normal size. Left ventricular systolic function is normal. The left ventricular ejection fraction is within the normal range. There is increased left ventricular wall thickness. There is normal LV segmental wall motion. Transmitral Doppler flow pattern suggests impaired LV relaxation. LVEF is 55% Right Ventricle The right ventricle is mildly dilated. The right ventricular systolic function is normal. Atria The left atrium is mildly dilated. The right atrium is mildly dilated. There is no color Doppler evidence of interatrial shunt. Aortic Valve The aortic valve is mildly thickened. There is no hemodynamically significant aortic valvular stenosis. No aortic regurgitation is present. Mitral Valve The mitral valve is normal in structure. No evidence of mitral valve stenosis. Trace mitral regurgitation is present. Tricuspid Valve The tricuspid valve leaflets are thin and pliable. Trace tricuspid regurgitation. There is insufficient TR jet to estimate RVSP. Pulmonic Valve The pulmonary valve is grossly normal in structure. Trace pulmonic valve regurgitation is present. Great Vessels The aortic root is normal in size. IVC is normal in size and collapses >50% with inspiration. Pericardium There is a trivial, anterior pericardial effusion present. No echo indications of tamponade. Other Information Study Quality: Fair Conclusion Normal LV systolic function. Mild RV dilation with normal RV function. Biatrial dilation. There is a trivial, anterior pericardial effusion present. No echo indications of tamponade. Electronically signed by : Radha Landers MD 09/01/2025 12:56:48
--- NOTE | 2025-09-01 10:04 | CA_ITS ---
FINAL REPORT CLINICAL HISTORY: PE COMPARISON: None FINDINGS: Multiple transverse and longitudinal scans were performed of the femoral popliteal deep venous system, with augmentation and compression maneuvers. There is partial thrombosis of the right common femoral vein with partial color fill. There is no intraluminal increased echogenicity in the remainder of the right leg venous system. There is normal compression and augmentation of the remainder of the venous structures. No abnormal venous Collaterals are seen. Normal phasic flow was noted in the visualized deep venous system on the left. No intraluminal increased echogenicity is noted to suggest thrombus. There is normal compression and augmentation of the venous structures. No abnormal venous collaterals are seen. IMPRESSION: No evidence of deep venous thrombosis of the left lower extremity. There is partial thrombosis seen only in the right common femoral vein. Reviewed, Interpreted and Dictated by Travis Garcia MD Transcribed by Concepcion Hamlin Authenticated and [facility]
[2025-09-01 10:12] LABS: Sodium,Urine Random 39.0 mmol/L (30-90)
[2025-09-01] MEDS: HYDROCODONE/APAP 5/325 MG TABLET 1.5 TAB PO (10:39)
[2025-09-01 11:57] VITALS: BP 104/64; PULSE 80; RESP 18; TEMP 36.7; O2SAT 95
[2025-09-01 12:00] VITALS: PULSE 80
--- NOTE | 2025-09-01 12:33 | EXP.PULM.CON ---
History of Present Illness History of present illness: Ms. Byrnes is a 65-year-old female prior smoker currently vaping greater than [id number] smoking history of presented to the ER with worsening respiratory distress chest pain found to be having pulmonary embolism and left-sided lung mass and pulmonary was called for further evaluation and management. [facility] Disclaimer: The information contained in this section may have been updated after the patient was seen, as this information can be updated by other users. Medical History (Updated 09/01/25 @ 12:34 by Nikki Corrales MD) Hilar lymphadenopathy Mediastinal lymphadenopathy Pulmonary embolism on right Depression Anxiety Hyperlipidemia Hypertension Chronic kidney disease Surgical History (Updated 08/31/25 @ 22:26 by Monica Stubbs RN) H/O eye surgery Family History (Updated 08/31/25 @ 23:29 by Janet Recinos APRN) Other No significant family history Social History (Updated 08/31/25 @ 22:26 by Monica Stubbs RN) Smoking Status: Former smoker tobacco type: cigarettes packs per day: 1 second hand exposure: No alcohol intake: never substance use type: denies use current occupational status: other Travel in the last 8 weeks?: None household members: spouse housing: house current occupational exposures/hazards: No caffeine: Yes Have you lived/traveled outside US in past 30 days?: No Contact w/someone who lives/traveled outside US past 30 days?: No Exposure to someone with infectious disease in past 14 days?: No Do you have a fever (greater than 100.4 F or 38 C)?: No Have you tested positive for COVID-19?: No Exposed to someone with COVID-19 in past 14 days?: No Do you have a sore throat?: No Do you have a cough?: No Do you have any weakness?: No Do you have any diarrhea?: No Are you experiencing any unusual bleeding?: No Do you have any muscle aches/pain?: No Do you have any abdominal pain?: No Are you experiencing loss of taste or smell?: No Review of Systems Constitutional Constitutional: Reports fatigue and Denies headache(s) Eyes Eyes: Denies eye discharge, Denies dry eyes, Denies irritation and Denies itchy eyes ENT Ears, Nose, Mouth, and Throat: Denies headache(s), Denies lip swelling and Denies throat swelling *Cardiovascular Cardiovascular: Reports dyspnea and Reports dyspnea on exertion *Respiratory Respiratory: Denies change in phlegm color, Reports chest congestion, Reports cough, Reports dyspnea, Reports dyspnea on exertion, Denies excessive phlegm production, Denies hemoptysis, Reports pain on inspiration, Reports pain with cough and Denies wheezing *Gastrointestinal Gastrointestinal: Denies abdominal pain, Denies belching and Denies cramping *Musculoskeletal Musculoskeletal: Reports back pain, Reports myalgias and Reports other (No small joint swelling or Pain) *Neurologic Neurologic: Denies confusion and Denies headache(s) Psychiatric Psychiatric: Denies confusion Endocrine Endocrine: Reports fatigue and Denies heat intolerance Hematologic/Lymphatic Hematologic/Lymphatic: Denies easy bleeding and Denies lymphadenopathy Allergic/Immunologic Allergic/Immunologic: Denies itchy eyes, Denies lip swelling, Denies throat swelling and Denies wheezing Pulmonology Exam Inpatient Vital signs and Labs for Last 24 Hours: Temp Pulse Resp BP Pulse Ox O2 Del Method 98.0 F 80 18 104/64 L 95 Room Air 09/01/25 11:57 09/01/25 11:57 09/01/25 11:57 09/01/25 11:57 09/01/25 11:57 09/01/25 11:57 Laboratory Results - last 24 hr 08/31/25 15:50: SARS-CoV-2 (PCR) Not detected, Influenza A Untype (PCR) Not detected, Influenza Type B (PCR) Not detected 08/31/25 16:15: WBC 9.6, RBC 4.13 L, Hgb 11.6 L, Hct 35.0 L, MCV 84.7, MCH 28.1, MCHC 33.1, RDW 12.8, Plt Count 226, MPV 10.8 H, Neut % (Auto) 83.2 H, Lymph % (Auto) 8.7 L, [place] % (Auto) 6.9, Eos % (Auto) 0.5, Baso % (Auto) 0.2, Neut # (Auto) 8.0 H, Lymph # (Auto) 0.8, [place] # (Auto) 0.7, Eos # (Auto) 0.1, Baso # (Auto) 0.0, PT 11.1, INR 1.00, APTT 28.6, Sodium 132 L, Potassium 3.4 L, Chloride 95 L, Carbon Dioxide 29, Anion Gap 11.4, BUN 22 H, Creatinine 1.30 H, Estimated Creat Clear 56, Estimated GFR 41 L, Est GFR ( Amer) 50 L, Glucose 114 H, Calcium 9.3, Total Bilirubin 0.9, AST 26, ALT 15, Alkaline Phosphatase 74, Troponin I < 0.01, Total Protein 8.1, Albumin 4.1, Globulin 4.0 H, Albumin/Globulin Ratio 1.0 L, Lipase 98 08/31/25 18:48: Troponin I < 0.01 08/31/25 22:26: Troponin I < 0.01 09/01/25 05:47: WBC 7.7, RBC 3.75 L, Hgb 10.6 L, Hct 31.7 L, MCV 84.5, MCH 27.7, MCHC 32.8, RDW 12.6, Plt Count 203, MPV 11.4 H, Neut % (Auto) 84.0 H, Lymph % (Auto) 7.9 L, [place] % (Auto) 7.0, Eos % (Auto) 0.5, Baso % (Auto) 0.1, Neut # (Auto) 6.4, Lymph # (Auto) 0.6 L, [place] # (Auto) 0.5, Eos # (Auto) 0.0, Baso # (Auto) 0.0, Sodium 131 L, Potassium 3.1 L, Chloride 97 L, Carbon Dioxide 27, Anion Gap 10.1, BUN 15 D, Creatinine 1.10 H, Estimated Creat Clear 66, Estimated GFR 50 L, Est GFR ( Amer) 61 D, Glucose 127 H, Calcium 8.8, Total Bilirubin 0.9, AST 22, ALT 15, Alkaline Phosphatase 82, Total Protein 7.0, Albumin 3.5 D, Globulin 3.5 H, Albumin/Globulin Ratio 1.0 L 09/01/25 09:55: Urine Sodium 39.0 I & O for Labs for Last 24 Hours: Intake & Output 08/29/25 08/30/25 08/31/25 09/01/25 23:59 23:59 23:59 23:59 Intake Total 892.5 / 892.5 Output Total 0 / 0 Balance 892.5 / 892.5 Weight 180 lb 179 lb 3.773 oz Constitutional: Present moderate distress Head: Present normocephalic and atraumatic ENT: Present normal exam, normal oropharynx and mucous membranes moist Neck: Present normal inspection and full ROM Respiratory: Present able to speak in complete sentences; Absent prolonged expiratory phase, respiratory distress, wheezes or crackles Cardiac: Present S1/S2, Tachycardia and radial pulses present GI: Present soft and distention; Absent tenderness or guarding Rectal (female): Present deferred (female): Present deferred Skin: Present intact; Absent cyanosis or jaundice Neuro: Present alert, awake and oriented x 3 Extremities: Present normal inspection; Absent clubbing or cyanosis Psychiatric: Present normal affect and cooperative Meds Home Medications and Allergies Home Medications ?Medication ?Instructions ?Recorded ?Confirmed ?Type bisoprolol 10 1 each PO DAILY High blood pressure 04/26/20 09/01/25 History mg-hydrochlorothiazide 6.25 mg tablet diazepam 10 mg tablet 10 mg PO TID PRN Anxiety 04/26/20 08/31/25 History hydrochlorothiazide 12.5 mg capsule 12.5 mg PO DAILY 04/26/20 08/31/25 History lovastatin 10 mg tablet 10 mg PO HS 04/26/20 09/01/25 History amitriptyline 25 mg tablet 25 mg PO HSP PRN Insomnia 08/31/25 09/01/25 History empagliflozin 10 mg tablet 10 mg PO DAILY 08/31/25 08/31/25 History (Jardiance) famotidine 20 mg tablet 20 mg PO BID 08/31/25 08/31/25 History furosemide 40 mg tablet 40 mg PO DAILY PRN Edema 08/31/25 08/31/25 History hydrocodone 5 mg-acetaminophen 325 1.5 tab PO Q8H PRN Pain 08/31/25 08/31/25 History mg tablet lisinopril 5 mg tablet 5 mg PO DAILY 08/31/25 08/31/25 History omeprazole 40 mg capsule,delayed 40 mg PO DAILY 08/31/25 08/31/25 History release potassium chloride 20 mEq 20 meq PO DAILY 08/31/25 08/31/25 History tablet,extended release(part/cryst) ziprasidone HCl 60 mg capsule 60 mg PO BID 08/31/25 08/31/25 History New Prescriptions to Start Prescriptions: Allergies Allergy/AdvReac Type Severity Reaction Status Date / Time codeine AdvReac Mild Nausea Verified 11/10/25 22:04 Results Laboratory Findings 09/01/25 05:47 09/01/25 05:47 PT/INR, D-dimer PT 11.1 seconds (10.1-12.5) 08/31/25 16:15 INR 1.00 (0.9-1.1) 08/31/25 16:15 Abnormal lab findings: Abnormal Labs 08/31/25 09/01/25 16:15 05:47 RBC 4.13 L 3.75 L Hgb 11.6 L 10.6 L Hct 35.0 L 31.7 L MPV 10.8 H 11.4 H Neut % (Auto) 83.2 H 84.0 H Lymph % (Auto) 8.7 L 7.9 L Neut # (Auto) 8.0 H Lymph # (Auto) 0.6 L Sodium 132 L 131 L Potassium 3.4 L 3.1 L Chloride 95 L 97 L BUN 22 H Creatinine 1.30 H 1.10 H Estimated GFR 41 L 50 L Est GFR ( Amer) 50 L Glucose 114 H 127 H Globulin 4.0 H 3.5 H Albumin/Globulin Ratio 1.0 L 1.0 L Assessment and Plan *Assessment and plan (1) Pulmonary embolism on right: Status: Acute Category: Medical Code(s): I26.99 - Other pulmonary embolism without acute cor pulmonale (2) Lung mass: Status: Acute Category: Medical Code(s): R91.8 - Other nonspecific abnormal finding of lung field (3) Mediastinal lymphadenopathy: Status: Acute Category: Medical Code(s): R59.0 - Localized enlarged lymph nodes (4) Hilar lymphadenopathy: Status: Acute Category: Medical Code(s): R59.0 - Localized enlarged lymph nodes Plan Ms. Byrnes is a 65-year-old female prior smoker currently vaping greater than [id number] smoking history of presented to the ER with worsening respiratory distress chest pain found to be having pulmonary embolism and left-sided lung mass and pulmonary was called for further evaluation and management. Afebrile. Hemodynamically stable. No evidence of leukocytosis. No RV strain on CT scans. Troponins within normal limits at less than 0.01. CTs upon admission pulmonary embolism in right main PA extending further. Right lower lobe ground glass opacity likely from pulmonary infraction. Left upper lobe lung mass 4.5cm along with mediastinal hilar lymphadenopathy concerning for malignancy. Also concerning lesions noted on left adrenal gland and liver. Small right pleural effusion not amendable for thoracentesis. Denies any prior history of personal malignancies. Lung nodule lymphadenopathy new from her prior CT at [facility] from 2019. Will obtain any further imaging performed between at [facility] Denies any respiratory symptoms at baseline. Not using any inhaler therapy. Plan: Continue full dose anticoagulation, patient can be discharged on Eliquis or other oral equivalent For the concerning lung mass and lymphadenopathy will schedule bronchoscopy transbronchial biopsy and outpatient in 4 weeks Albuterol 4 times daily PRN Smoking cessation Follow with lower extremity venous
--- NOTE | 2025-09-01 12:58 | P.PN_ITS ---
Subjective *Date: 09/01/25 *Time: 13:53 Interval history: Patient doing well this morning, up to chair. Denies shortness of breath, chest pain, abdominal pain. Patient currently on room air. Pulmonology and cardiology consulted for further evaluation of PE and left sided lung mass. Medical Exam Vital signs and Labs for Last 24 Hours: Vital Signs Temp Pulse Pulse Resp BP BP Pulse Ox 09/01/25 11:57 98.0 F 80 18 104/64 L 95 09/01/25 11:00 09/01/25 09:00 09/01/25 08:00 09/01/25 08:00 100 H 09/01/25 08:00 98.6 F 100 H 16 135/79 96 09/01/25 06:35 09/01/25 05:00 09/01/25 04:00 98.3 F 16 110/75 96 09/01/25 04:00 95 H 09/01/25 03:00 09/01/25 01:00 09/01/25 00:00 100 H 09/01/25 00:00 98.2 F 114 H 18 94/52 L 100 08/31/25 23:00 08/31/25 21:14 98.9 F 102 H 16 103/71 L 08/31/25 21:00 103/71 L 08/31/25 21:00 103 H 97 08/31/25 20:45 08/31/25 20:45 104 H 96 08/31/25 20:30 103/74 L 08/31/25 20:30 101 H 95 08/31/25 20:15 100 H 95 08/31/25 20:00 90 08/31/25 20:00 103 H 94 L 08/31/25 20:00 103/83 L 08/31/25 19:45 103 H 94 L 08/31/25 19:40 95 08/31/25 19:30 105 H 95 08/31/25 19:30 108/77 L 08/31/25 19:15 105 H 94 L 08/31/25 19:00 116/75 08/31/25 19:00 106 H 93 L 08/31/25 17:00 110 H 124/83 96 08/31/25 16:30 106 H 102/76 L 96 08/31/25 16:18 107 H 114/68 97 08/31/25 15:54 98.9 F 100 H 18 146/93 H 93 L O2 Del Method 09/01/25 11:57 Room Air 09/01/25 11:00 Room Air 09/01/25 09:00 Room Air 09/01/25 08:00 Room Air 09/01/25 08:00 09/01/25 08:00 Room Air 09/01/25 06:35 Room Air 09/01/25 05:00 Room Air 09/01/25 04:00 Room Air 09/01/25 04:00 09/01/25 03:00 Room Air 09/01/25 01:00 Room Air 09/01/25 00:00 09/01/25 00:00 Room Air 08/31/25 23:00 Room Air 08/31/25 21:14 Room Air 08/31/25 21:00 08/31/25 21:00 Room Air 08/31/25 20:45 Room Air 08/31/25 20:45 Room Air 08/31/25 20:30 08/31/25 20:30 Room Air 08/31/25 20:15 Room Air 08/31/25 20:00 08/31/25 20:00 Room Air 08/31/25 20:00 08/31/25 19:45 Room Air 08/31/25 19:40 08/31/25 19:30 Room Air 08/31/25 19:30 08/31/25 19:15 Room Air 08/31/25 19:00 08/31/25 19:00 Room Air 08/31/25 17:00 08/31/25 16:30 08/31/25 16:18 08/31/25 15:54 Room Air Intake and Output 08/31/25 09/01/25 09/01/25 23:59 07:59 15:59 Intake Total 622.5 / 892.5 270 / 892.5 Output Total 0 / 0 0 / 0 Balance 622.5 / 892.5 270 / 892.5 Intake: Intake, Oral Amount 240 / 510 270 / 510 Intake, Total IV Amount 382.5 / 382.5 Lactated Ringers 1000ML 1,000 382.5 / 382.5 ml @ 100 mls/hr IV .Q10H [facility] Rx #:[id number] Output: Output, Urine Amount 0 / 0 0 / 0 Other: Number of Voids 0 Number of Unmeasured Voids 1 Weight 81.3 kg Patient Weight 09/01/25 23:59 Weight 81.3 kg Laboratory Results - last 24 hr 08/31/25 15:50: SARS-CoV-2 (PCR) Not detected, Influenza A Untype (PCR) Not detected, Influenza Type B (PCR) Not detected 08/31/25 16:15: WBC 9.6, RBC 4.13 L, Hgb 11.6 L, Hct 35.0 L, MCV 84.7, MCH 28.1, MCHC 33.1, RDW 12.8, Plt Count 226, MPV 10.8 H, Neut % (Auto) 83.2 H, Lymph % (Auto) 8.7 L, [place] % (Auto) 6.9, Eos % (Auto) 0.5, Baso % (Auto) 0.2, Neut # (Auto) 8.0 H, Lymph # (Auto) 0.8, [place] # (Auto) 0.7, Eos # (Auto) 0.1, Baso # (Auto) 0.0, PT 11.1, INR 1.00, APTT 28.6, Sodium 132 L, Potassium 3.4 L, Chloride 95 L, Carbon Dioxide 29, Anion Gap 11.4, BUN 22 H, Creatinine 1.30 H, Estimated Creat Clear 56, Estimated GFR 41 L, Est GFR ( Amer) 50 L, Glucose 114 H, Calcium 9.3, Total Bilirubin 0.9, AST 26, ALT 15, Alkaline Phosphatase 74, Troponin I < 0.01, Total Protein 8.1, Albumin 4.1, Globulin 4.0 H, Albumin/Globulin Ratio 1.0 L, Lipase 98 08/31/25 18:48: Troponin I < 0.01 08/31/25 22:26: Troponin I < 0.01 09/01/25 05:47: WBC 7.7, RBC 3.75 L, Hgb 10.6 L, Hct 31.7 L, MCV 84.5, MCH 27.7, MCHC 32.8, RDW 12.6, Plt Count 203, MPV 11.4 H, Neut % (Auto) 84.0 H, Lymph % (Auto) 7.9 L, [place] % (Auto) 7.0, Eos % (Auto) 0.5, Baso % (Auto) 0.1, Neut # (Auto) 6.4, Lymph # (Auto) 0.6 L, [place] # (Auto) 0.5, Eos # (Auto) 0.0, Baso # (Auto) 0.0, Sodium 131 L, Potassium 3.1 L, Chloride 97 L, Carbon Dioxide 27, Anion Gap 10.1, BUN 15 D, Creatinine 1.10 H, Estimated Creat Clear 66, Estimated GFR 50 L, Est GFR ( Amer) 61 D, Glucose 127 H, Calcium 8.8, Total Bilirubin 0.9, AST 22, ALT 15, Alkaline Phosphatase 82, Total Protein 7.0, Albumin 3.5 D, Globulin 3.5 H, Albumin/Globulin Ratio 1.0 L 09/01/25 09:55: Urine Sodium 39.0 I & O for Labs for Last 24 Hours: Intake & Output 08/29/25 08/30/25 08/31/25 09/01/25 23:59 23:59 23:59 23:59 Intake Total 892.5 / 892.5 Output Total 0 / 0 Balance 892.5 / 892.5 Weight 81.647 kg 81.3 kg Constitutional: Present no acute distress, average body habitus and cooperative Head: Present atraumatic Eyes: Present as per HPI ENT: Present normal exam Neck: Present normal inspection Respiratory: Present prolonged expiratory phase, crackles (Bilateral bases) and normal respiratory effort; Absent wheezes Cardiac: Present Reg Rate and Rhythm and No Murmur GI: Present soft and normal bowel sounds; Absent distention or tenderness Rectal (female): Present deferred (female): Present deferred Extremities: Present normal inspection; Absent tenderness or edema Skin: Present intact and dry; Absent rash Neuro: Present alert, awake and oriented x 3 Assessment and Plan *Assessment and plan (1) Hilar lymphadenopathy: Status: Acute Category: Medical Code(s): R59.0 - Localized enlarged lymph nodes (2) Pulmonary embolism on right: Status: Acute Category: Medical Code(s): I26.99 - Other pulmonary embolism without acute cor pulmonale (3) JULIA (acute kidney injury): Status: Acute Category: Medical Code(s): N17.9 - Acute kidney failure, unspecified (4) Lung mass: Status: Acute Category: Medical Code(s): R91.8 - Other nonspecific abnormal finding of lung field (5) Hyponatremia: Status: Acute Category: Medical Code(s): E87.1 - Hypo-osmolality and hyponatremia (6) Hypokalemia: Status: Acute Category: Medical Code(s): E87.6 - Hypokalemia (7) Mediastinal lymphadenopathy: Status: Acute Category: Medical Code(s): R59.0 - Localized enlarged lymph nodes Plan Ms. Byrnes is a 65-year-old female who presented yesterday to the emergency department with worsening shortness of breath and right sided stabbing pain. She states that she has been experiencing shortness of breath since approximately May. She has a primary medical history of hypertension, hyperlipidemia, mood disorder, GERD, anxiety. She states the pain is primarily in her right lower chest/back and radiates when she breathes deeply. She has no known significant pulmonary or cardiac history. She does report dyspnea with exertion. Denies fevers, chills, abdominal pain, hemoptysis. She does endorse a history of smoking/vaping. Workup in the emergency department was performed and chest CTA was significant for acute appearing thrombus in the right main pulmonary artery extending into the right lower lobe pulmonary arteries, no evidence of heart strain. Right lower lobe ground glass opacity noted. Left upper lobe mass measuring 4.6 x 4 cm?favor malignancy. Lab work was significant for elevated kidney function, creatinine 1.3, potassium 3.4, sodium 132. Serial troponins negative, anemia noted with hemoglobin of 10.6. No leukocytosis WBC 7.7. At this time Hospital medicine was consulted for admission, and agreed to admit the patient. Plan of care as follows: #Right main pulmonary artery PE #Left upper lobe mass #Hilar/mediastinal lymphadenopathy ?Patient started on therapeutic Lovenox 80 mg twice daily. Plans to transition to oral OAC at discharge. Pulmonary consulted for further recommendations regarding pulmonary mass. Cardiology consulted for recommendations for of anticoagulation versus thrombectomy. Patient continues to be stable on room air. ?Patient will need to follow-up with pulmonology and oncology at discharge. Plans for outpatient bronchoscopy/transbronchial biopsy in approximately 4 weeks. ?Echo shows no evidence of right heart strain, normal LV systolic function, biatrial dilation, EF 55%. Bilateral lower extremity Doppler study pending. #JULIA, present on admission: Patient creatinine elevated on admission 1.3, trending downward today to 1.1. Continuing to trend. #Hypokalemia: Potassium 3.1, replacing per protocol. #Hyponatremia: Patient sodium slightly low at 131. Urine sodium within normal limits. Hold HCTZ, lisinopril. #Hypertension #Hyperlipidemia ? Continue bisoprolol 10 mg daily, Jardiance 10 mg daily, lovastatin 10 mg at bedtime. #Mood disorder/anxiety: Continue ziprasidone 60 mg twice daily, diazepam 10 mg 3 times daily as needed #GERD: Continue famotidine 20 mg twice daily and omeprazole 40 mg daily. Full code VTE?Lovenox Ambulate as tolerated Cardiac diet
--- NOTE | 2025-09-01 13:44 | P.DS_ITS ---
<Statement entered by Davion Hart MD - 09/01/25 15:05> Rounded on patient after nurse practitioner. Personally examined and interviewed patient. Agree with exam findings and care plan as documented. General Admission date:: 08/31/25 Discharge date: 09/01/25 HPI HPI HPI: 65-year-old female patient presents to ER with complaints of shortness of breath that she has had for months. She also has some right sided chest pain specifically over the right lower ribs. Sometimes the pain radiates around to her back. She denies cough, fever chills or bodyaches. She is on Lasix for some lower extremity swelling but has not had any worsening of that recently. She states her shortness of breath occurs with minimal activity, no shortness of breath at rest. Medical history includes bipolar disorder, depression, CKD 3, HTN and HLD. Presents tachycardic at 105 with a pulse ox of 93 to 94%. She does have history of smoking and vaping, quit in May. No history of DVT or PE. Hospital Course Hospital Course Hospital Course: Ms. Byrnes is a 65-year-old female who presented yesterday to the emergency department with worsening shortness of breath and right sided stabbing pain. She states that she has been experiencing shortness of breath since approximately May. She has a primary medical history of hypertension, hyperlipidemia, mood disorder, GERD, anxiety. She states the pain is primarily in her right lower chest/back and radiates when she breathes deeply. She has no known significant pulmonary or cardiac history. She does report dyspnea with exertion. Denies fevers, chills, abdominal pain, hemoptysis. She does endorse a history of smoking/vaping. Workup in the emergency department was performed and chest CTA was significant for acute appearing thrombus in the right main pulmonary artery extending into the right lower lobe pulmonary arteries, no evidence of heart strain. Right lower lobe ground glass opacity noted. Left upper lobe mass measuring 4.6 x 4 cm?favor malignancy. Lab work was significant for elevated kidney function, creatinine 1.3, potassium 3.4, sodium 132. Serial troponins negative, anemia noted with hemoglobin of 10.6. No leukocytosis WBC 7.7. At this time Hospital medicine was consulted for admission, and agreed to admit the patient. Plan of care as follows: #Right main pulmonary artery PE #Left upper lobe mass #Hilar/mediastinal lymphadenopathy ?Patient started on therapeutic Lovenox 80 mg twice daily. Will transition to Eliquis 10 mg twice daily x 7 days, Eliquis 5 mg twice daily after that. Pulmonary consulted for further recommendations regarding pulmonary mass, patient will follow-up in 2 weeks with pulmonology and plans for bronchoscopy at that time. Cardiology consulted for recommendations for of anticoagulation versus thrombectomy, no right heart strain noted and patient on room air?cardiology recommends oral anticoagulation versus thrombectomy. Patient continues to be stable on room air. ?Echo shows no evidence of right heart strain, normal LV systolic function, biatrial dilation, EF 55%. Bilateral lower extremity Doppler study pending. #Anemia: Patient slightly anemic at discharge, hemoglobin 10.6. Denies melena or coffee-ground emesis. This needs to be monitored closely as patient will be on OAC at discharge. Follow-up CBC with PCP in 1 to 2 weeks. #JULIA, present on admission: Patient creatinine elevated on admission 1.3, trending downward today to 1.1. #Hypokalemia: Potassium 3.1, replace per protocol. #Hyponatremia: Patient sodium slightly low at 131. Urine sodium within normal limits. Patient should hold HCTZ 12.5 mg daily. Patient takes bisoprolol?HCTZ daily. Patient should follow-up with PCP in 1 to 2 weeks for BMP. #Hypertension/hyperlipidemia: Continue bisoprolol?HCTZ 1 tab daily, Jardiance 10 mg daily, lovastatin 10 mg at bedtime. #Mood disorder/anxiety: Continue ziprasidone 60 mg twice daily, diazepam 10 mg 3 times daily as needed #GERD: Continue famotidine 20 mg twice daily and omeprazole 40 mg daily. Total time spent on discharge 32 minutes in counseling, documentation, chart review, and direct care with patient. Exam Data for Last 24 hours Vital signs and Labs for Last 24 Hours: Temp Pulse Resp BP Pulse Ox O2 Del Method 98.0 F 80 18 104/64 L 95 Room Air 09/01/25 11:57 09/01/25 11:57 09/01/25 11:57 09/01/25 11:57 09/01/25 11:57 09/01/25 11:57 Laboratory Results - last 24 hr 08/31/25 15:50: SARS-CoV-2 (PCR) Not detected, Influenza A Untype (PCR) Not detected, Influenza Type B (PCR) Not detected 08/31/25 16:15: WBC 9.6, RBC 4.13 L, Hgb 11.6 L, Hct 35.0 L, MCV 84.7, MCH 28.1, MCHC 33.1, RDW 12.8, Plt Count 226, MPV 10.8 H, Neut % (Auto) 83.2 H, Lymph % (Auto) 8.7 L, [place] % (Auto) 6.9, Eos % (Auto) 0.5, Baso % (Auto) 0.2, Neut # (Auto) 8.0 H, Lymph # (Auto) 0.8, [place] # (Auto) 0.7, Eos # (Auto) 0.1, Baso # (Auto) 0.0, PT 11.1, INR 1.00, APTT 28.6, Sodium 132 L, Potassium 3.4 L, Chloride 95 L, Carbon Dioxide 29, Anion Gap 11.4, BUN 22 H, Creatinine 1.30 H, Estimated Creat Clear 56, Estimated GFR 41 L, Est GFR ( Amer) 50 L, Glucose 114 H, Calcium 9.3, Total Bilirubin 0.9, AST 26, ALT 15, Alkaline Phosphatase 74, Troponin I < 0.01, Total Protein 8.1, Albumin 4.1, Globulin 4.0 H, Albumin/Globulin Ratio 1.0 L, Lipase 98 08/31/25 18:48: Troponin I < 0.01 08/31/25 22:26: Troponin I < 0.01 09/01/25 05:47: WBC 7.7, RBC 3.75 L, Hgb 10.6 L, Hct 31.7 L, MCV 84.5, MCH 27.7, MCHC 32.8, RDW 12.6, Plt Count 203, MPV 11.4 H, Neut % (Auto) 84.0 H, Lymph % (Auto) 7.9 L, [place] % (Auto) 7.0, Eos % (Auto) 0.5, Baso % (Auto) 0.1, Neut # (Auto) 6.4, Lymph # (Auto) 0.6 L, [place] # (Auto) 0.5, Eos # (Auto) 0.0, Baso # (Auto) 0.0, Sodium 131 L, Potassium 3.1 L, Chloride 97 L, Carbon Dioxide 27, Anion Gap 10.1, BUN 15 D, Creatinine 1.10 H, Estimated Creat Clear 66, Estimated GFR 50 L, Est GFR ( Amer) 61 D, Glucose 127 H, Calcium 8.8, Total Bilirubin 0.9, AST 22, ALT 15, Alkaline Phosphatase 82, Total Protein 7.0, Albumin 3.5 D, Globulin 3.5 H, Albumin/Globulin Ratio 1.0 L 09/01/25 09:55: Urine Sodium 39.0 I & O for Last 24 hours: Intake & Output 08/29/25 08/30/25 08/31/25 09/01/25 23:59 23:59 23:59 23:59 Intake Total 1092.5 / 1092.5 Output Total 0 / 0 Balance 1092.5 / 1092.5 Weight 81.647 kg 81.3 kg Constitutional Constitutional: no acute distress, average body habitus and cooperative *Routine HEENT Exam Head: Present normocephalic Eye: Present EOMI and PERRL ENT: Present mucous membranes moist *Routine Neck Exam Neck: Present supple; Absent lymphadenopathy *Routine Respiratory Exam Respiratory: Present crackles (bilateral lower lobes) and normal respiratory effort; Absent respiratory distress *Routine Cardiovascular Exam Cardiovascular: Present RRR, Normal S1 and Normal S2; Absent murmur *Routine Abdominal Exam Abdominal: Present soft and normoactive bowel sounds; Absent tenderness *Routine Rectal Exam Patient deferred: visual exam *Routine Exam Patient deferred: external exam *Routine Extremities Exam Extremities: Present normal capillary refill; Absent cyanosis, clubbing or edema *Routine Skin Exam Skin: Present warm; Absent rash *Routine Neurological Exam Neurological: Present alert and oriented X3 Results Data Completed and Pending Labs on day of discharge: Labs from last 24 hours 09/01/25 09/01/25 08/31/25 09:55 05:47 22:26 WBC 7.7 RBC 3.75 L Hgb 10.6 L Hct 31.7 L MCV 84.5 MCH 27.7 MCHC 32.8 RDW 12.6 Plt Count 203 MPV 11.4 H Neut % (Auto) 84.0 H Lymph % (Auto) 7.9 L [place] % (Auto) 7.0 Eos % (Auto) 0.5 Baso % (Auto) 0.1 Neut # (Auto) 6.4 Lymph # (Auto) 0.6 L Casey # (Auto) 0.5 Eos # (Auto) 0.0 Baso # (Auto) 0.0 PT INR APTT Sodium 131 L Potassium 3.1 L Chloride 97 L Carbon Dioxide 27 Anion Gap 10.1 BUN 15 D Creatinine 1.10 H Estimated Creat Clear 66 Estimated GFR 50 L Est GFR ( Amer) 61 D Glucose 127 H Calcium 8.8 Total Bilirubin 0.9 AST 22 ALT 15 Alkaline Phosphatase 82 Troponin I < 0.01 Total Protein 7.0 Albumin 3.5 D Globulin 3.5 H Albumin/Globulin Ratio 1.0 L Lipase Urine Sodium 39.0 SARS-CoV-2 (PCR) Influenza A Untype (PCR) Influenza Type B (PCR) 08/31/25 08/31/25 08/31/25 18:48 16:15 15:50 WBC 9.6 RBC 4.13 L Hgb 11.6 L Hct 35.0 L MCV 84.7 MCH 28.1 MCHC 33.1 RDW 12.8 Plt Count 226 MPV 10.8 H Neut % (Auto) 83.2 H Lymph % (Auto) 8.7 L [place] % (Auto) 6.9 Eos % (Auto) 0.5 Baso % (Auto) 0.2 Neut # (Auto) 8.0 H Lymph # (Auto) 0.8 Casey # (Auto) 0.7 Eos # (Auto) 0.1 Baso # (Auto) 0.0 PT 11.1 INR 1.00 APTT 28.6 Sodium 132 L Potassium 3.4 L Chloride 95 L Carbon Dioxide 29 Anion Gap 11.4 BUN 22 H Creatinine 1.30 H Estimated Creat Clear 56 Estimated GFR 41 L Est GFR ( Amer) 50 L Glucose 114 H Calcium 9.3 Total Bilirubin 0.9 AST 26 ALT 15 Alkaline Phosphatase 74 Troponin I < 0.01 < 0.01 Total Protein 8.1 Albumin 4.1 Globulin 4.0 H Albumin/Globulin Ratio 1.0 L Lipase 98 Urine Sodium SARS-CoV-2 (PCR) Not detected Influenza A Untype (PCR) Not detected Influenza Type B (PCR) Not detected DS: Diagnosis Discharge Diagnosis (1) Hilar lymphadenopathy: Status: Acute Code(s): R59.0 - Localized enlarged lymph nodes (2) Pulmonary embolism on right: Status: Acute Code(s): I26.99 - Other pulmonary embolism without acute cor pulmonale (3) JULIA (acute kidney injury): Status: Acute Code(s): N17.9 - Acute kidney failure, unspecified (4) Lung mass: Status: Acute Code(s): R91.8 - Other nonspecific abnormal finding of lung field (5) Hyponatremia: Status: Acute Code(s): E87.1 - Hypo-osmolality and hyponatremia (6) Hypokalemia: Status: Acute Code(s): E87.6 - Hypokalemia (7) Mediastinal lymphadenopathy: Status: Acute Code(s): R59.0 - Localized enlarged lymph nodes Meds Home Medications and Allergies Home Medications ?Medication ?Instructions ?Recorded ?Confirmed ?Type bisoprolol 10 1 each PO DAILY High blood p ressure 04/26/20 09/01/25 History mg-hydrochlorothiazide 6.25 mg tablet diazepam 10 mg tablet 10 mg PO TID PRN Anxiety 04/1008/31/25 History lovastatin 10 mg tablet 10 mg PO HS 04/26/20 5 History amitriptyline 25 mg tablet 25 mg PO HSP PRN Insomnia 1 10/31/24 09/01/25 History empagliflozin 10 mg tablet 10 mg PO DAILY 08/31/2508/15 History (Jardiance) famotidine 20 mg tablet 20 mg PO BID 08/31/25 History furosemide 40 mg tablet 40 mg PO DAILY PRN Edema 08/1508/31/25 History hydrocodone 5 mg-acetaminophen 325 1.5 tab PO Q8H PRN Pain 08/31/25 08/31/25 History mg tablet lisinopril 5 mg tablet 5 mg PO DAILY 08/31/2508/31 History omeprazole 40 mg capsule,delayed 40 mg PO DAILY 08/31/25 History release potassium chloride 20 mEq 20 meq PO DAILY 08/31/2508/15 History tablet,extended release(part/cryst) ziprasidone HCl 60 mg capsule 60 mg PO BID 08/31/25 History apixaban 5 mg (74 tabs) tablets in See Rx Instructions PO .COMPLEX 09/01/25 Rx a dose pack (Eliquis DVT-PE Treat #74 tabs 30D Start) New Prescriptions to Start Prescriptions: apixaban [Eliquis DVT-PE Treat 30D Start] Melani Waldron Allergies Allergy/AdvReac Type Severity Reaction Status Date / Time codeine AdvReac Mild Nausea Verified 08/31/25 22:04 Discharge Plan Disposition Patient Disposition: Home, Self-Care Condition: Good Follow up Plan Follow up with: Magda Diaz APRN [Nurse Practitioner, Cardiology] - 09/15/25 9:30 am Nikki Corrales MD [Physician, Pulmonology] - 09/28/25 1:00 pm Benny Watt MD [Primary Care Provider, Medical] - 09/10/25 11:15 am Prescriptions/Medication Reconciliation: New Eliquis DVT-PE Treat 30D Start 5 mg (74 tabs) tablets,dose pack See Rx Instructions .ROUTE .COMPLEX Qty: 74 0RF Rx Instructions: orally per package directions Continued bisoprolol-hydrochlorothiazide 1 EACH tablet 1 each PO DAILY lovastatin 10 MG tablet 10 mg PO HS diazepam 10 MG tablet 10 mg PO TID PRN (Reason: Anxiety) furosemide 40 mg Tablet 40 mg PO DAILY PRN (Reason: Edema) hydrocodone-acetaminophen 5-325 mg tablet 1.5 tab PO Q8H PRN (Reason: Pain) Patient Comments: TAKE 1 AND 1/2 TABLETS BY MOUTH EVERY 8 HOURS NEEDED FOR SEVERE PAIN omeprazole 40 mg capsule,delayed release(DR/EC) 40 mg PO DAILY Patient Comments: TAKE 1 CAPSULE BY MOUTH DAILY potassium chloride 20 mEq tablet,ER particles/crystals 20 meq PO DAILY Patient Comments: TAKE 1 TABLET BY MOUTH DAILY famotidine 20 mg tablet 20 mg PO BID Patient Comments: TAKE 1 TABLET BY MOUTH TWICE DAILY amitriptyline 25 mg tablet 25 mg PO HSP PRN (Reason: Insomnia) Patient Comments: TAKE 1 TABLET BY MOUTH EVERY NIGHT lisinopril 5 mg tablet 5 mg PO DAILY Patient Comments: TAKE 1 TABLET BY MOUTH DAILY ziprasidone HCl 60 mg capsule 60 mg PO BID Patient Comments: TAKE 1 CAPSULE BY MOUTH TWICE DAILY WITH MEALS Jardiance 10 mg tablet 10 mg PO DAILY Discontinued hydrochlorothiazide 12.5 MG capsule 12.5 mg PO DAILY Problem Reconciliation Problems Reviewed?: Yes Patient Discharge Instructions ACTIVITY: Continue current activity DIET: continue same diet Patient Instructions: Pulmonary Embolism Print Language: Khmer Providers Primary Care Provider: Benny Watt Admit Provider: Ezequiel Gould Attending Provider: Ezequiel Gould
--- NOTE | 2025-09-01 14:20 | EXP.CARD.CON ---
History of Present Illness History of Present Illness Consult date: 09/01/25 Requesting physician: Davion Hart Consult reason: shortness of breath Chief complaint: SOA History of present illness: This is a 65-year-old white female who presented to the emergency department complaints of shortness of breath. She states that she has been short of breath since approximately May of this year. She states that her shortness of breath significantly worsened within the last week and she started having right-sided shoulder blade pain and pain along the right side of her ribs. She states the pain in her shoulder blade and her ribs was constant and would not alleviate that is why she decided to come to the emergency department. The patient was found to have an acute thrombus in the right main pulmonary artery extending to the right lower lobe pulmonary arteries and there appears to be a right lower lobe pulmonary infarct. The patient also has a left upper lobe mass measuring 4.6 x 4 cm, likely a malignancy. There was no evidence of heart strain. Her troponin was negative. She does not have an oxygen requirement. She denies any lower extremity edema. She denies any fever, chills, nausea, vomiting, diarrhea, PND or orthopnea. [facility] Disclaimer: The information contained in this section may have been updated after the patient was seen, as this information can be updated by other users. Medical History (Updated 09/01/25 @ 13:29 by Melani Waldron APRN) Hilar lymphadenopathy Mediastinal lymphadenopathy Pulmonary embolism on right Depression Anxiety Hyperlipidemia Hypertension Chronic kidney disease Surgical History (Updated 08/31/25 @ 22:26 by Monica Stubbs RN) H/O eye surgery Family History (Updated 08/31/25 @ 23:29 by Janet Recinos APRN) Other No significant family history Social History (Updated 08/31/25 @ 22:26 by Monica Stubbs RN) Smoking Status: Former smoker tobacco type: cigarettes packs per day: 1 second hand exposure: No alcohol intake: never substance use type: denies use current occupational status: other Travel in the last 8 weeks?: None household members: spouse housing: house current occupational exposures/hazards: No caffeine: Yes Review of Systems Review of Systems Review of systems:: pertinent systems reviewed and negative unless documented below Constitutional Constitutional: Reports system reviewed and no additional complaints, except as documented and Denies headache(s) Eyes Eyes: Reports system reviewed and no additional complaints, except as documented ENT Ears, Nose, Mouth, and Throat: Reports system reviewed and no additional complaints, except as documented and Denies headache(s) *Cardiovascular Cardiovascular: Reports system reviewed and no additional complaints, except as documented, Reports chest pain, Reports chest pain at rest, Reports chest pain with activity, Reports dyspnea and Reports dyspnea on exertion *Respiratory Respiratory: Reports system reviewed and no additional complaints, except as documented, Reports dyspnea and Reports dyspnea on exertion *Gastrointestinal Gastrointestinal: Reports system reviewed and no additional complaints, except as documented *Genitourinary Genitourinary: Reports system reviewed and no additional complaints, except as documented *Musculoskeletal Musculoskeletal: Reports system reviewed and no additional complaints, except as documented Integumentary/Breasts Skin/Breast: Reports system reviewed and no additional complaints, except as documented *Neurologic Neurologic: Reports system reviewed and no additional complaints, except as documented, Denies confusion and Denies headache(s) Psychiatric Psychiatric: Denies confusion Endocrine Endocrine: Reports system reviewed and no additional complaints, except as documented Hematologic/Lymphatic Hematologic/Lymphatic: Reports system reviewed and no additional complaints, except as documented Allergic/Immunologic Allergic/Immunologic: Reports system reviewed and no additional complaints, except as documented Exam Data for Last 24 hours Vital signs and Labs for Last 24 Hours: Temp Pulse Resp BP Pulse Ox O2 Del Method 98.0 F 80 18 104/64 L 95 Room Air 09/01/25 11:57 09/01/25 11:57 09/01/25 11:57 09/01/25 11:57 09/01/25 11:57 09/01/25 11:57 Laboratory Results - last 24 hr 08/31/25 15:50: SARS-CoV-2 (PCR) Not detected, Influenza A Untype (PCR) Not detected, Influenza Type B (PCR) Not detected 08/31/25 16:15: WBC 9.6, RBC 4.13 L, Hgb 11.6 L, Hct 35.0 L, MCV 84.7, MCH 28.1, MCHC 33.1, RDW 12.8, Plt Count 226, MPV 10.8 H, Neut % (Auto) 83.2 H, Lymph % (Auto) 8.7 L, [place] % (Auto) 6.9, Eos % (Auto) 0.5, Baso % (Auto) 0.2, Neut # (Auto) 8.0 H, Lymph # (Auto) 0.8, [place] # (Auto) 0.7, Eos # (Auto) 0.1, Baso # (Auto) 0.0, PT 11.1, INR 1.00, APTT 28.6, Sodium 132 L, Potassium 3.4 L, Chloride 95 L, Carbon Dioxide 29, Anion Gap 11.4, BUN 22 H, Creatinine 1.30 H, Estimated Creat Clear 56, Estimated GFR 41 L, Est GFR ( Amer) 50 L, Glucose 114 H, Calcium 9.3, Total Bilirubin 0.9, AST 26, ALT 15, Alkaline Phosphatase 74, Troponin I < 0.01, Total Protein 8.1, Albumin 4.1, Globulin 4.0 H, Albumin/Globulin Ratio 1.0 L, Lipase 98 08/31/25 18:48: Troponin I < 0.01 08/31/25 22:26: Troponin I < 0.01 09/01/25 05:47: WBC 7.7, RBC 3.75 L, Hgb 10.6 L, Hct 31.7 L, MCV 84.5, MCH 27.7, MCHC 32.8, RDW 12.6, Plt Count 203, MPV 11.4 H, Neut % (Auto) 84.0 H, Lymph % (Auto) 7.9 L, [place] % (Auto) 7.0, Eos % (Auto) 0.5, Baso % (Auto) 0.1, Neut # (Auto) 6.4, Lymph # (Auto) 0.6 L, [place] # (Auto) 0.5, Eos # (Auto) 0.0, Baso # (Auto) 0.0, Sodium 131 L, Potassium 3.1 L, Chloride 97 L, Carbon Dioxide 27, Anion Gap 10.1, BUN 15 D, Creatinine 1.10 H, Estimated Creat Clear 66, Estimated GFR 50 L, Est GFR ( Amer) 61 D, Glucose 127 H, Calcium 8.8, Total Bilirubin 0.9, AST 22, ALT 15, Alkaline Phosphatase 82, Total Protein 7.0, Albumin 3.5 D, Globulin 3.5 H, Albumin/Globulin Ratio 1.0 L 09/01/25 09:55: Urine Sodium 39.0 I & O for Last 24 hours: Intake & Output 08/29/25 08/30/25 08/31/25 09/01/25 23:59 23:59 23:59 23:59 Intake Total 1092.5 / 1092.5 Output Total 0 / 0 Balance 1092.5 / 1092.5 Weight 180 lb 179 lb 3.773 oz Narrative: Echocardiogram shows: Normal LV systolic function. Mild RV dilation with normal RV function. Biatrial dilation. There is a trivial, anterior pericardial effusion present. No echo indications of tamponade. Constitutional Constitutional: no acute distress and average body habitus *Routine HEENT Exam Head: Present normocephalic and atraumatic ENT: Present mucous membranes moist *Routine Neck Exam Neck: Present supple, full ROM and normal carotid upstroke; Absent JVD, carotid bruit or lymphadenopathy *Routine Respiratory Exam Respiratory: Present CTA bilaterally, normal respiratory effort, able to speak in complete sentences and symmetric chest movement *Routine Cardiovascular Exam Cardiovascular: Present RRR, Normal S1 and Normal S2; Absent murmur or gallop *Routine Abdominal Exam Abdominal: Present soft and normoactive bowel sounds; Absent tenderness, distended or organomegaly *Routine Extremities Exam Extremities: Present full ROM, pulses intact and normal capillary refill; Absent cyanosis, clubbing or edema *Routine Skin Exam Skin: Present intact and warm; Absent erythema *Routine Neurological Exam Neurological: Present alert, oriented X3 and CN II-XII intact; Absent sensory deficit or motor deficit Routine Psychiatric Exam Psychiatric: Present normal affect Meds Home Medications and Allergies Home Medications ?Medication ?Instructions ?Recorded ?Confirmed ?Type bisoprolol 10 1 each PO DAILY High blood pressure 04/26/20 09/01/25 History mg-hydrochlorothiazide 6.25 mg tablet diazepam 10 mg tablet 10 mg PO TID PRN Anxiety 04/26/20 08/31/25 History lovastatin 10 mg tablet 10 mg PO HS 04/26/20 09/01/25 History amitriptyline 25 mg tablet 25 mg PO HSP PRN Insomnia 08/31/25 09/01/25 History empagliflozin 10 mg tablet 10 mg PO DAILY 08/31/25 08/31/25 History (Jardiance) famotidine 20 mg tablet 20 mg PO BID 08/31/25 08/31/25 History furosemide 40 mg tablet 40 mg PO DAILY PRN Edema 08/31/25 08/31/25 History hydrocodone 5 mg-acetaminophen 325 1.5 tab PO Q8H PRN Pain 08/31/25 08/31/25 History mg tablet lisinopril 5 mg tablet 5 mg PO DAILY 08/31/25 08/31/25 History omeprazole 40 mg capsule,delayed 40 mg PO DAILY 08/31/25 08/31/25 History release potassium chloride 20 mEq 20 meq PO DAILY 08/31/25 08/31/25 History tablet,extended release(part/cryst) ziprasidone HCl 60 mg capsule 60 mg PO BID 08/31/25 08/31/25 History apixaban 5 mg (74 tabs) tablets in See Rx Instructions PO .COMPLEX 09/01/25 Rx a dose pack (Eliquis DVT-PE Treat #74 tabs 30D Start) New Prescriptions to Start Prescriptions: apixaban [Eliquis DVT-PE Treat 30D Start] Melani Waldron Allergies Allergy/AdvReac Type Severity Reaction Status Date / Time codeine AdvReac Mild Nausea Verified 08/31/25 22:04 Assessment and Plan *Assessment and plan (1) Pulmonary emboli: Status: Acute Qualifiers: Pulmonary embolism type: single subsegmental (without acute cor pulmonale) Qualified Code(s): I26.93 - Single subsegmental thrombotic pulmonary embolism without acute cor pulmonale Category: Medical Code(s): I26.99 - Other pulmonary embolism without acute cor pulmonale (2) Lung mass: Status: Acute Category: Medical Code(s): R91.8 - Other nonspecific abnormal finding of lung field (3) Hyponatremia: Status: Acute Category: Medical Code(s): E87.1 - Hypo-osmolality and hyponatremia (4) JULIA (acute kidney injury): Status: Acute Category: Medical Code(s): N17.9 - Acute kidney failure, unspecified (5) Liver lesion: Status: Acute Category: Medical Code(s): K76.9 - Liver disease, unspecified (6) Pulmonary embolism on right: Status: Acute Category: Medical Code(s): I26.99 - Other pulmonary embolism without acute cor pulmonale (7) Hilar lymphadenopathy: Status: Acute Category: Medical Code(s): R59.0 - Localized enlarged lymph nodes (8) Hypokalemia: Status: Acute Category: Medical Code(s): E87.6 - Hypokalemia Plan Plan: 1. The patient was admitted to the hospital for an acute thrombus in the right main pulmonary artery extending to the right lower lobe pulmonary arteries with a right lower lobe pulmonary infarct. She has been started on Eliquis for long-term anticoagulation. This is being managed by pulmonology. Will defer. 2. Cardiology was consulted for consideration of thrombectomy. The patient's troponins are negative. She does not have an oxygen requirement. CT of the chest and echocardiogram both show no heart strain. The patient does not meet criteria for thrombectomy since she has a pulmonary infarct and there is no RV strain noted. Please continue with medical management of the PE with Eliquis as stated above. 3. Her ejection fraction is normal. 4. Her troponin is negative. No plans for invasive left cardiac catheterization at this time. 5. Her blood pressure is well-controlled. 6. Her LDL goal is less than 100. 7. The patient does have a 4.6 x 4 cm left upper lobe lung mass, concerning for malignancy. She is being followed by pulmonology. Will defer. 8. The patient is anemic. This will need to be followed closely. 9. Electrolytes are being replaced per the primary team. 10. No further recommendations at this time from a cardiac standpoint. If any other cardiology issues arise throughout the patient's hospitalization, please contact cardiology again. Thank you for the opportunity to Hel participate in the care of this patient. All recommendations and orders are per Dr. Landers.
--- NOTE | 2025-09-02 10:27 | CARE MANAGER ---
Spoke with patient related to recent hospital stay. She reports that she is still short of breath and having some pain. She got choked on her K+ pill this morning. She already cuts them in half and is going to discuss with her PCP changing to liquid. She has her blood thinner and is aware of her follow up appointments. She denies any other questions or needs at this time.
== END 2025-09-01 15:37 | disposition home or self-care (01) ==
LOC: ER 16:08 → 2ND 20:24
PROVIDERS: Nurse Practitioner Acute Care; Admitting Provider Student in an Organized Health Care Education/Training Program; Emergency Provider Student in an Organized Health Care Education/Training Program; PCP Family Medicine; Visit Provider Student in an Organized Health Care Education/Training Program
DX: I26.93 Single subsegmental thrombotic pulmonary embolism without acute cor pulmonale (principal); R91.8 Other nonspecific abnormal finding of lung field; R59.0 Localized enlarged lymph nodes; I12.9 Hypertensive chronic kidney disease with stage 1 through stage 4 chronic kidney disease, or unspecified chronic kidney disease; N17.9 Acute kidney failure, unspecified; E87.6 Hypokalemia; D64.9 Anemia, unspecified; E87.1 Hypo-osmolality and hyponatremia; E27.8 Other specified disorders of adrenal gland; E78.5 Hyperlipidemia, unspecified; F39 Unspecified mood [affective] disorder; F41.9 Anxiety disorder, unspecified; K21.9 Gastro-esophageal reflux disease without esophagitis; I82.411 Acute embolism and thrombosis of right femoral vein; F31.9 Bipolar disorder, unspecified; N18.9 Chronic kidney disease, unspecified; K76.89 Other specified diseases of liver; Z87.891 Personal history of nicotine dependence; Z88.5 Allergy status to narcotic agent; Z79.899 Other long term (current) drug therapy
CPT/HCPCS: 36415; 71275; 80053; 83690; 84484; 84540; 85025; 85610; 85730; 87636; 93005; 93306; 93970; 96372; 96374; 99285; G0378; J0131; J1650; J7120; Q9967

== ENCOUNTER 2025-09-15 11:27 | Outpatient (CLI) | payer OTHER, SELFPAY ==
--- OUTSIDE RECORDS SUMMARY | 2025-09-10 11:15 | XMS_ITS | Encounter Summary ---
[facility] [address] [place] [address] Care Team Providers Care Labor Custodian Name Role Phone Benny Watt MD Primary Care Provider + Reason for Visit * Reason Comments FU from [facility] discharge / SOA Pt see's Dr. Corrales on 09-28-25 / Dr. Webb 09-15-25 Encounter Details Date Type Department Care Team (Late st Contact Info) Description 09/10/2025 11:15 AM EST Office Visit [facility] [address] [place] [address] Benny Watt MD [address] [place] [address] Primary hypertension (Primary Dx); Mass of left lung; Hypokalemia; Acute pulmonary embolism without acute cor pulmonale, unspecified pulmonary embolism type; FPC current use of diuretic; FPC current use of anticoagulant; Anemia, unspecified type; Wheezing Social History Tobacco Use Types Packs/Day Years Used Date Smoking Tobacco: Former Cigarettes 0.3 45.5 0 06/10/1976 - 12/16/2021 Electronic Cigarette Smokeless Tobacco: Never Comments:Quit cigarette star dahiana vaping 6mg. Alcohol Use Standard Drinks/Week Comments Not Currently 0 (1 standard drink = 0.6 oz pure alcohol) Occasional beer in summer at [facility] PHQ-2 Answer Date Recorded Retired PHQ-9: [...] Chief Complaint Patient presents with FU from [facility] discharge / SOA Pt see's Dr. Corrales on 09-28-25 / Dr. Webb 09-15-25 Subjective Corina Byrnes is a 65 y.o. who presents for transition of care after a 24-hour hospitalization at [facility]. Patient presented on August 31 with shortness [...] Day. Dispense: 60 tablet; Refill: 11 5. 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 Anemia, unspecified type Expected: 09/16/2025 (Approximate), Expires: 12/10/2026 documented as of this encounter Visit Diagnoses Diagnosis Primary hypertension- Primary Unspecified essential hypertension Mass of left lung Hypokalemia Hypopotassemia Acute pulmonary embolism without acute cor pulmonale, unspecified pulmonary embolism type 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
--- NOTE | 2025-09-15 11:30 | XR_ITS ---
FINAL REPORT CLINICAL HISTORY: PNM COMPARISON: Chest x-ray dated 03/08/[address] dated 08/31/2025. FINDINGS: PA and lateral views of the chest were obtained. Heart size is normal. There is a left hilar mass measuring 4.9 cm. The lungs are otherwise clear. There is no pleural effusion or pneumothorax. No acute osseous abnormality is identified. IMPRESSION: New left hilar mass. Please see CT report dated 08/31/2025. Reviewed, Interpreted and Dictated by Jhoana Connolly MD Transcribed by Sun Hanson Authenticated and [facility]
--- OUTSIDE RECORDS SUMMARY | 2025-09-15 11:31 | XMS_ITS | Encounter Summary ---
[facility] Address [address] [place] [address] Care Team Providers Care Service Order Taker Name Role Phone Benny Watt MD Primary Care Provider + Reason for Visit * Reason Onset Date Comments Med Management 07/30/2025 Encounter Details Date Type Department Care Team (Late st Contact Info) Description 07/30/2025 Telephone [facility] [address] [facility] [place] [address] Christopher Kern, DEPOSIT REFUND CLERK [address] [place] [address] Med Management Social History Tobacco Use Types Packs/Day Years Used Date Smoking Tobacco: Former Cigarettes 0.3 45.5 0 06/10/1976 - 12/16/2021 Electronic Cigarette Smokeless Tobacco: Never Comments:Quit cigarette star dahiana vaping 6mg. Alcohol Use Standard Drinks/Week Comments Not Currently 0 (1 standard drink = 0.6 oz pure alcohol) Occasional beer in summer at [facility] PHQ-2 Answer Date Recorded Retired [...] PATIENT WAS NEEDING HER ZIPRASIDONE SENT TO [facility] AND NOT [facility] documented in this encounter Plan of Treatment Upcoming Encounters Date Type Department Care Team (Late st Contact Info) Description 12/21/2025 8:15 AM EST Office Visit [facility] [address] [place] [address] Benny Watt MD [address] [place] [address] documented as of this encounter Visit Diagnoses Diagnosis Bipolar 1 disorder, depressed, partial remission documented in this encounter Additional Health Concerns Assessment Noted Time PHQ-2 Depression Total Score: 2 12/03/19 24 8:52 AM EST documented as of this encounter Care Teams Service Order Taker Relationship Specialty Start Date End Date Benny Watt MD [address] [place] [address] PCP - General Family Medicine 02/23/22 documented as of this encounter
--- OUTSIDE RECORDS SUMMARY | 2025-09-15 11:31 | XMS_ITS | Clinical Summary ---
Author Organization [facility] Address [address] [place] [address] Care Team Providers Care Surfboard Designer Name Role Phone Benny Watt MD Primary [...] from that organization. cyclobenzaprine (FLEXERIL) 5 MG tabletIndicatio ns:Arthritis of lumbar spine Take 1 tablet by mouth 3 (Three) Times a Day As Needed for Muscle Spasms. 270 tablet 1 024 Active Jardiance 10 MG tablet tablet TAKE 1 TABLET DAILY 90 tablet 3 024 Active potassium chloride (KLOR-CON M20) 20 MEQ CR tabletIndicatio ns:MCFP current use of diuretic Take 1 tablet by mouth Daily. 90 tablet 1 025 Active diazePAM (VALIUM) 10 MG tabletIndicatio ns:Generalized anxiety disorder TAKE 1 TABLET BY MOUTH THREE TIMES DAILY NEEDED FOR ANXIETY 90 tablet 2 025 Active amitriptyline (ELAVIL) 25 MG tabletIndicatio ns:Insomnia, unspecified type Take 1 tablet by mouth Every Night. 90 tablet 1 025 Active omeprazole (priLOSEC) 40 MG capsuleIndicati ons:Gastroesoph ageal reflux disease without esophagitis TAKE 1 CAPSULE BY MOUTH DAILY 30 capsule 4 025 Active furosemide (LASIX) 40 MG tabletIndicatio ns:Lower extremity edema Take 1 tablet by mouth Daily As Needed (swelling). 025 Active bisoprolol-hydr ochlorothiazide (ZIAC) 10-6.25 MG per tabletIndicatio ns:Essential hypertension Take 1 tablet by mouth Daily. 90 tablet 1 025 Active lovastatin (MEVACOR) 10 MG tabletIndicatio ns:Hypercholest erolemia Take 1 tablet by mouth Every Night. 90 tablet 1 025 Active lisinopril (PRINIVIL,ZESTR IL) 5 MG tabletIndicatio ns:Stage 3a chronic kidney disease (CKD) Take 1 tablet by mouth Daily. 90 tablet 1 025 Active famotidine (PEPCID) 20 MG tabletIndicatio ns:Gastroesopha geal reflux disease without esophagitis,Eso phageal dysphagia TAKE 1 TABLET BY MOUTH TWICE DAILY 180 tablet 1 025 Active ziprasidone (GEODON) 60 MG capsuleIndicati ons:Bipolar 1 disorder, depressed, partial remission Take 1 capsule by mouth 2 (Two) Times a Day With Meals. 60 capsule 2 025 Active HYDROcodone-ulisses taminophen ([place]) 5-325 MG per tabletIndicatio ns:Foraminal stenosis of cervical region,Arthriti s of lumbar spine,Chronic pain syndrome Take 1.5 tablets by mouth Every 8 (Eight) Hours As Needed for Severe Pain. 135 tablet 025 Active Eliquis DVT/PE Starter Pack tablet therapy pack take according to package instructions 025 Active apixaban (ELIQUIS) 5 MG tablet tabletIndicatio ns:Acute pulmonary embolism without acute cor pulmonale, unspecified pulmonary embolism type Take 1 tablet by mouth 2 (Two) Times a Day. 60 tablet 11 025 Active albuterol sulfate HFA 108 (90 Base) MCG/ACT inhalerIndicati ons:Wheezing Inhale 2 puffs Every 4 (Four) Hours As Needed for Wheezing. 18 g 1 11/20/2 025 Active hydroCHLOROthia zide (MICROZIDE) 12.5 MG capsuleIndicati ons:Essential hypertension Take 1 capsule by mouth Every Morning. 90 capsule 1 025 2024 Discontinued HYDROcodone-ulisses taminophen ([place]) 5-325 MG per tabletIndicatio ns:Foraminal stenosis of cervical region,Arthriti s of lumbar spine,Chronic pain syndrome Take 1.5 tablets by mouth Every 8 (Eight) Hours As Needed for Severe Pain. 135 tablet 025 2024 Discontinued(R eorder) Active Problems Problem Noted Date Diagnosed Date [...] Encounters Date Type Department Care Team Description 09/10/2025 11:15 AM EST Office Visit [facility] [address] [facility] [place] [address] Benny Watt MD Primary hypertension (Primary Dx); Mass of left lung; Hypokalemia; Acute pulmonary embolism without acute cor pulmonale, unspecified pulmonary embolism type; MCFP current use of diuretic; intermodal dispatcher current use of anticoagulant; Anemia, unspecified type; Wheezing 09/10/2025 Travel 08/24/2025 Refill [facility] [address] [place] [address] Gamaliel Rdz MD Foraminal stenosis of cervical region; Arthritis of lumbar spine; Chronic pain syndrome 08/03/2025 Telephone [facility] [address] [place] [address] Christopher Kern APRN Med Management 07/31/2025 Refill [facility] [address] [place] [address] Christopher Kern, SAUMYA Bipolar 1 disorder, depressed, partial remission 07/30/2025 Telephone [facility] [address] [place] [address] Christopher Kern APRN Med Management 07/30/2025 Refill [facility] [address] [place] [address] Benny Watt MD Bipolar 1 disorder, depressed, partial remission 07/26/2025 Refill [facility] [address] [place] [address] Benny Watt MD Foraminal stenosis of cervical region; Arthritis of lumbar spine; Chronic pain syndrome 06/29/2025 Refill [facility] [address] [place] [address] Benny Watt MD Gastroesophageal reflux disease without esophagitis; Esophageal dysphagia 06/29/2025 Refill [facility] [address] [place] [address] Benny Watt MD Foraminal stenosis of cervical region; Arthritis of lumbar spine; Chronic pain syndrome 06/26/2025 Results Follow-Up [facility] [address] [place] [address] Benny Watt MD 06/25/2025 9:00 AM EDT Office Visit [facility] [address] [place] [address] Benny Watt MD Essential hypertension (Primary Dx); Stage 3a chronic kidney disease (CKD); Foraminal stenosis of cervical region; Arthritis of lumbar spine; Chronic pain syndrome; intermodal dispatcher (current) use of opiate analgesic; Encounter for [...] Karen Sowder Heart disease Maternal Grandfather Tim Rodríguezymmaricel CAD Arthritis Maternal Grandmother Mami Fryman Depression Maternal Grandmother Mami Fryman Diabetes Maternal Grandmother Mami Fryman Heart disease Maternal Grandmother Mami Fryman CAD Anxiety disorder Mother Linnette mulligan Arthritis Mother Linnette mulligan Cancer Mother Linnette mulligan Was surgical r emoved hysterectomy Depression Mother Linnette mulligan After menopaus e Diabetes Mother Linnette mulligan Heart disease Mother Linnette mulligan Coronary mario ry disease, congestive heart failure Hyperlipidemia Mother Linnette mulligan Stroke Mother Linnette mulligan Cancer Sister 1 [facility] Surgery hyste rectomy Drug abuse Sister [address] [facility] Sister 2 Nikki Isaak Heart disease Sister 2 Nikki Mulligan Had stent put in Hyperlipidemia Sister 2 Nikki Isaak Hypertension Sister 2 Nikki Isaak Relation Name Status Comments Daughter 1 Magda Byrnes Daughter 2 Cali eng Father Zeke mulligan Maternal Aunt Karen Sowder Maternal Grandfather Tim Fryman Maternal Grandmother Mami Fryman Mother Linnette mullgian Sister 1 Mami Highlander Sister 2 Nikki Isaak Social History Tobacco Use Types Packs/Day Years Used Date Smoking Tobacco: Former Cigarettes 0.3 45.5 0 06/10/1976 - 12/16/2021 Electronic Cigarette Smokeless Tobacco: Never Tobacco Cessation:Counseling Given: Not Answered Comments:Quit cigarette started vaping 6mg. Alcohol Use Standard Drinks/Week Comments Not Currently 0 (1 standard drink = 0.6 oz pure alcohol) Occasional beer in summer at [employer] PHQ-2 Answer Date Recorded Retired PHQ-9: Brief [...] Mass Index 34.41 09/10/2025 11:19 AM EST Plan of Treatment Upcoming Encounters Date Type Department Care Team (Late st Contact Info) Description 12/21/2025 8:15 AM EST Office Visit [facility] [address] [facility] [place] [address] Benny Watt MD [address] [facility] [place] [address] Health Maintenance Due Date Last Done Comments Annual Gynecologic Pelvic an d Breast Exam 1961 TDAP/TD VACCINES (1 - Tdap) 02/01/1980 COLOGUARD 2006 COLON CANCER SCREENING 5 YEA R SIGMOIDOSCOPY [address] COLONOGRAPHY 2006 FECAL OCCULT BLOOD TEST 2006 FIT Testing (1 year) 2006 ZOSTER VACCINE (1 of 2) 2011 HEPATITIS C SCREENING 02/23/2022 ANNUAL PHYSICAL 05/31/2024 05/31/2023 MAMMOGRAM 07/04/2024 07/04/2022, 0802/2022, 05/26/2022 INFLUENZA VACCINE 05/22/2025 LIPID PANEL 06/25/2026 06/25/2025, 02/2 04/2025, 05/31/2023, Additional history exists COLONOSCOPY 04/30/2030 04/30/2020 (Nancy ent-Reported (Performed Externally)) COLORECTAL CANCER SCREENING 04/30/2030 Pneumococcal Vaccine 50+ Completed 05/31/2023 Procedures Procedure Name Priority Date/Time Associated Diagnosis Comments SCANNED EKG 08/31/2025 SCANNED - LABS 08/31/2025 SCANNED - LABS 08/31/2025 SCANNED - LABS 08/31/2025 SCANNED - IMAGING 08/31/2025 SCANNED - IMAGING 08/31/2025 LIPID PANEL Routine 06/25/2025 9:19 AM EDT Stage 3a chronic kidney disease (CKD) Hypercholesterolemia RENAL FUNCTION PANEL Routine 06/25/2025 9:19 AM EDT Essential hypertension POCT MEDLINE 12 PANEL URINE DRUG SCREEN Routine 06/25/2025 9:12 AM EDT intermodal dispatcher (current) use of opiate analgesic POC ALBUMIN/CREATININE RATIO Routine 06/25/2025 9:08 AM EDT Stage 3a chronic kidney disease (CKD) SCANNED - MAMMO 07/04/2022 from Last 3 Months or Most Recently Relevant to Health Maintenance Results * ECG Scan (08/31/2025) Benny Watt MD ECG ORDERABLES Final Re sult * IMAGING SCANNED (08/31/2025) Only the most recent of2 resultswithin the time period is included. Anatomical Region Laterality Modality Radiographic Lisa ging Benny Watt MD IMG DIAGNOSTIC IMAGING O RDERABLES Final Result * LABS SCANNED (08/31/2025) Only the most recent of3 resultswithin the time period is included. us Benny Watt MD LAB BLOOD ORDERABLES Fin al Result * (ABNORMAL) Renal Function Panel (06/25/2025 9:19 AM EDT) [facility] Glucose 85 65 - 99 mg/dL [facility] [...] - 06/26/2025 3:07 AM EDT Performed at: [address] [place] [address] [id number] Auto Inspection Specialist: Simon Connolly MD, Phone: [phone] Patient Fasting: Y Benny Watt MD LAB BLOOD ORDERABLES Fin al Result [facility] (AMBULATORY) [address] [place] [address], [place] [phone] [facility] [address] [place] [address], [place] [phone] * (ABNORMAL) Lipid Panel (06/25/2025 9:19 AM EDT) [facility] Total Cholesterol 160 0 - 200 mg/dL [...] - 06/26/2025 3:07 AM EDT Performed at: [address] [place] [address] [id number] Auto Inspection Specialist: Simon Connolly MD, Phone: [phone] Patient Fasting: Y Benny Watt MD LAB BLOOD ORDERABLES Fin al Result [facility] ([facility]BUL[facility]) [address] [place] [address], [place] [phone] [facility] [address] [place] [address], [place] [phone] * (ABNORMAL) POC Medline 12 Panel Urine [...] [facility] INTERNAL CONTROL Passed Passed Lot Number [id number] Expiration Date 11/06/2026 Urine 06/25/2025 9:12 AM [...] Most Recently Relevant to Health Maintenance Insurance [facility] Care Teams Surfboard Designer Relationship Specialty Start Date End Date Benny Watt MD [address] [place] [address] [place] [address] PCP - General Family Medicine 02/23/22
--- OUTSIDE RECORDS SUMMARY | 2025-09-15 11:31 | XMS_ITS | Encounter Summary ---
[facility] Address [address] [place] [address] Care Team Providers Care Inbound Customer Service Representative Name Role Phone Benny Watt MD Primary Care Provider + Reason for Visit * Reason Onset Date Comments Med Refill 06/23/2022 Encounter Details Date Type Department Care Team (Late Contact Info) Description 06/23/2022 Refill [facility] [address] [facility] [place] [address] Benny Watt MD [address] [facility] [place] [address] Arthritis of lumbar spine; Foraminal [...] Description 12/21/2025 8:15 AM EST Office Visit [facility] [address] [facility] [place] [address] Benny Watt MD [address] [place] [address] documented as of this encounter Visit Diagnoses Diagnosis Arthritis of lumbar spine Foraminal stenosis of cervical region Chronic pain syndrome documented in this encounter Care Teams Inbound Customer Service Representative Relationship Specialty Start Date End Date Benny Watt MD [address] [place] [address] PCP - General Family Medicine 02/23/22 documented as of this encounter
--- OUTSIDE RECORDS SUMMARY | 2025-09-15 11:31 | XMS_ITS | Encounter Summary ---
[facility] Address [address] [place] [address] Care Team Providers Care Safety Technician Name Role Phone Benny Watt MD Primary Care Provider + Reason for Visit * Reason Onset Date Comments Med Refill 02/23/2025 Encounter Details Date Type Department Care Team (Late st Contact Info) Description 02/23/[address] [facility] [address] [place] [address] Benny Watt MD [address] [place] [address] Arthritis of lumbar spine; Foraminal [...] pure alcohol) Occasional beer in summer at [facility] PHQ-2 Answer Date Recorded Retired PHQ-9: [...] AM EST Office Visit [facility] [address] [place] [address] Benny Watt MD [address] [place] [address] documented as of this encounter Visit Diagnoses Diagnosis Arthritis of lumbar spine Foraminal stenosis of cervical region Chronic pain syndrome documented in this encounter Additional Health Concerns Assessment Noted Time PHQ-2 Depression Total Score: 2 12/03/19 24 8:52 AM EST documented as of this encounter Care Teams Safety Technician Relationship Specialty Start Date End Date Benny Watt MD [address] [place] [address] PCP - General Family Medicine 02/23/22 documented as of this encounter
--- OUTSIDE RECORDS SUMMARY | 2025-09-15 11:31 | XMS_ITS | Encounter Summary ---
[facility] Address [address] [place] [address] Care Team Providers Care Retail Receiving Clerk Name Role Phone Benny Watt MD Primary Care Provider + Reason for Visit * Reason Onset Date Comments Med Refill 07/26/2025 Encounter Details Date Type Department Care Team (Late st Contact Info) Description 07/26/2025 Refill [facility] [address] [place] [address] Benny Watt MD [address] [place] [address] Foraminal stenosis of cervical region; [...] alcohol) Occasional beer in summer at [facility] PHQ-2 Answer Date Recorded Retired PHQ-9: Brief [...] Description 12/21/2025 8:15 AM EST Office Visit [facility] [address] [place] [address] Benny Watt MD [address] [place] [address] documented as of this encounter Visit Diagnoses Diagnosis Foraminal stenosis of cervical region Arthritis of lumbar spine Chronic pain syndrome documented in this encounter Additional Health Concerns Assessment Noted Time PHQ-2 Depression Total Score: 2 12/03/19 24 8:52 AM EST documented as of this encounter Care Teams Retail Receiving Clerk Relationship Specialty Start Date End Date Benny Watt MD [address] [place] [address] PCP - General Family Medicine 02/23/22 documented as of this encounter
--- OUTSIDE RECORDS SUMMARY | 2025-09-15 11:31 | XMS_ITS | Encounter Summary ---
[facility] Address [address] [place] [address] Care Team Providers Care Ordnance Mechanic Name Role Phone Benny Watt MD Primary Care Provider + Reason for Visit * Reason Onset Date Comments Med Refill 07/31/2025 Encounter Details Date Type Department Care Team (Late st Contact Info) Description 07/31/2025 Refill [facility] [address] [place] [address] Christopher Kern, ARMHOLE FELLER HANDSTITCHING MACHINE [address] [place] [address] Bipolar 1 disorder, depressed, partial remission Social History Tobacco Use Types Packs/Day Years Used Date Smoking Tobacco: Former Cigarettes 0.3 45.5 0 06/10/1976 - 12/16/2021 Electronic Cigarette Smokeless Tobacco: Never Comments:Quit cigarette star dahiana vaping 6mg. Alcohol Use Standard Drinks/Week Comments Not Currently 0 (1 standard drink = 0.6 oz pure alcohol) Occasional beer in summer at [facility] PHQ-2 Answer Date Recorded Retired PHQ-9: [...] 12/21/2025 8:15 AM EST Office Visit [facility] [address] [place] [address] Benny Watt MD [address] [place] [address] documented as of this encounter Visit Diagnoses Diagnosis Bipolar 1 disorder, depressed, partial remission documented in this encounter Additional Health Concerns Assessment Noted Time PHQ-2 Depression Total Score: 2 12/03/19 24 8:52 AM EST documented as of this encounter Care Teams Ordnance Mechanic Relationship Specialty Start Date End Date Benny Watt MD [address] [place] [address] PCP - General Family Medicine 02/23/22 documented as of this encounter
--- OUTSIDE RECORDS SUMMARY | 2025-09-15 11:31 | XMS_ITS | Encounter Summary ---
[facility] Address [address] [place] [address] Care Team Providers Care Prefabricator Name Role Phone Benny Watt MD Primary Care Provider + Reason for Visit * Reason Onset Date Comments Med Refill 08/24/2025 Encounter Details Date Type Department Care Team (Late st Contact Info) Description 08/24/2025 Refill [facility] [address] [place] [address] Gamaliel Rdz MD [address] [place] [address] Foraminal stenosis of cervical region; [...] pure alcohol) Occasional beer in summer at [facility] PHQ-2 Answer Date Recorded Retired [...] Visit [facility] [address] [place] [address] Benny Watt MD [address] [place] [address] documented as of this encounter Visit Diagnoses Diagnosis Foraminal stenosis of cervical region Arthritis of lumbar spine Chronic pain syndrome documented in this encounter Additional Health Concerns Assessment Noted Time PHQ-2 Depression Total Score: 2 12/03/19 24 8:52 AM EST documented as of this encounter Care Teams Prefabricator Relationship Specialty Start Date End Date Benny Watt MD [address] [place] [address] PCP - General Family Medicine 02/23/22 documented as of this encounter
--- OUTSIDE RECORDS SUMMARY | 2025-09-15 11:31 | XMS_ITS | Encounter Summary ---
[facility] Organization [facility] Address [address] [place] [address] Care Team Providers Care Commercial Specialist Name Role Phone Benny Watt MD Primary Care Provider + Reason for Visit * Reason Onset Date Comments Med Management 08/03/2025 Encounter Details Date Type Department Care Team (Late st Contact Info) Description 08/03/2025 Telephone [facility] [address] [facility] [place] [address] Christopher Kern, TIMBER MANAGEMENT TECHNICIAN [address] [place] [address] Med Management Social History Tobacco Use Types Packs/Day Years Used Date Smoking Tobacco: Former Cigarettes 0.3 45.5 0 06/10/1976 - 12/16/2021 Electronic Cigarette Smokeless Tobacco: Never Comments:Quit cigarette star dahiana vaping 6mg. Alcohol Use Standard Drinks/Week Comments Not Currently 0 (1 standard drink = 0.6 oz pure alcohol) Occasional beer in summer at [facility] PHQ-2 Answer Date Recorded Retired PHQ-9: Brief [...] requested that the pharmacy be changed from [facility] in [place] to [place]. I contacted [facility] in [place] and requested for the medication of ziprasidone (GEODON) 60 MG capsule yenny pulled from the [facility] in [place], the pharmacists stated she would take care of it. * Telephone Encounter - Joelle Rasmussen RegSched Rep - 08/03/2025 9:16 AM EDT ZIPRASIDONE WAS SENT TO [facility] IN [place] BUT IT NEEDED TO BE SENT TO [facility] IN [place] documented in this encounter Plan of Treatment Upcoming Encounters Date Type Department Care Team (Late st Contact Info) Description 12/21/2025 8:15 AM EST Office Visit [facility] [address] [facility] [place] [address] Benny Watt MD [address] [place] [address] documented as of this encounter Visit Diagnoses Not on filedocumented in this encounter Additional Health Concerns Assessment Noted Time PHQ-2 Depression Total Score: 2 12/03/19 24 8:52 AM EST documented as of this encounter Care Teams Commercial Specialist Relationship Specialty Start Date End Date Benny Watt MD [address] [place] [address] PCP - General Family Medicine 02/23/22 documented as of this encounter
--- OUTSIDE RECORDS SUMMARY | 2025-09-15 11:31 | XMS_ITS | Encounter Summary ---
[facility] Organization [facility] Address [address] [place] [address] Care Team Providers Care Doctor Podiatric Medicine Name Role Phone eBnny Watt MD Primary Care Provider + Encounter Details Date Type Department Care Team (Latest Contact Info) Description 09/10/2025 Travel Social History Tobacco Use Types Packs/Day Years [...] 8:15 AM EST Office Visit [facility] [address] [facility] [place] [id number] Benny Watt MD [address] [place] [address] documented as of this encounter Visit Diagnoses Not on filedocumented in this encounter Additional Health Concerns Assessment Noted Time PHQ-2 Depression Total Score: 2 12/03/19 24 8:52 AM EST documented as of this encounter Care Teams Doctor Podiatric Medicine Relationship Specialty Start Date End Date Benny Watt MD [address] [facility] [place] [address] PCP - General Family Medicine 02/23/22 documented as of this encounter
--- OUTSIDE RECORDS SUMMARY | 2025-09-15 11:31 | XMS_ITS | Encounter Summary ---
[facility] [address] [place] [address] Care Team Providers Care Manager Vehicle Name Role Phone Benny Watt MD Primary Care Provider + Encounter Details Date Type Department Care Team (Late st Contact Info) Description 07/30/2025 Refill [facility] 210 [place] [address] Benny Watt MD 210 [place] [address] Bipolar 1 disorder, depressed, partial remission Social History Tobacco Use Types Packs/Day Years Used Date Smoking Tobacco: Former Cigarettes 0.3 45.5 0 06/10/1976 - 12/16/2021 Electronic Cigarette Smokeless Tobacco: Never Comments:Quit cigarette star dahiana vaping 6mg. Alcohol Use Standard Drinks/Week Comments Not Currently 0 (1 standard drink = 0.6 oz pure alcohol) Occasional beer in summer at [facility] PHQ-2 Answer Date Recorded Retired [...] where request should be sent: [facility] Additional details provided by patient: she is out of refills and the pharmacy is saying they have been trying to contact the office to get an approval of the refill Best call back number: [phone] Does the patient have less than a 3 day supply: [x] Yes [] No Dante Infante 07/30/25, 13:01 EDT documented in this encounter Plan of Treatment Upcoming Encounters Date Type Department Care Team (Late st Contact Info) Description 12/21/2025 8:15 AM EST Office Visit [facility] [address] [place] [address] Benny Watt MD [address] [place] [address] documented as of this encounter Visit Diagnoses Diagnosis Bipolar 1 disorder, depressed, partial remission documented in this encounter Additional Health Concerns Assessment Noted Time PHQ-2 Depression Total Score: 2 12/03/19 24 8:52 AM EST documented as of this encounter Care Teams Manager Vehicle Relationship Specialty Start Date End Date Benny Watt MD [address] [place] [address] PCP - General Family Medicine 02/23/22 documented as of this encounter
--- OUTSIDE RECORDS SUMMARY | 2025-09-15 11:31 | XMS_ITS | Encounter Summary ---
Author Organization [facility] Address [address] [place] [address] Care Team Providers Care Mechatronics Technician Name Role Phone Benny Watt MD Primary Care Provider + Encounter Details Date Type Department Care Team (Late Contact Info) Description 06/26/2025 Results Follow-Up [facility] [address] [place] [address] Benny Watt MD 210 [place] [address] Social History Tobacco Use Types Packs/Day Years Used Date Smoking Tobacco: Former Cigarettes 0.3 45.5 0 06/10/1976 - 12/16/2021 Electronic Cigarette Smokeless Tobacco: Never Comments:Quit cigarette star dahiana vaping 6mg. Alcohol Use Standard Drinks/Week Comments Not Currently 0 (1 standard drink = 0.6 oz pure alcohol) Occasional beer in summer at [facility] PHQ-2 Answer Date Recorded Retired PHQ-9: [...] [facility] [address] [place] [address] Benny Watt MD [address] [place] [address] documented as of this encounter Visit Diagnoses Diagnosis Stage 3a chronic kidney disease (CKD)- Primary documented in this encounter Additional Health Concerns Assessment Noted Time PHQ-2 Depression Total Score: 2 12/03/19 24 8:52 AM EST documented as of this encounter Care Teams Mechatronics Technician Relationship Specialty Start Date End Date Benny Watt MD [address] [place] [address] PCP - General Family Medicine 02/23/22 documented as of this encounter
[2025-09-15 12:08] LABS: Hematocrit 33.9 % (37.0-47.0); Hemoglobin 11.0 g/dL (12.2-16.2); Immature Granulocytes % 0.7 %; Mean Corpuscular HGB Conc 32.4 g/dL (31.8-35.4); Mean Corpuscular Hemoglobin 27.6 pg (27.0-31.2); Mean Corpuscular Volume 85.0 fl (81-99); Nucleated Red Blood Cells % 0 %; Platelet Count 309 K/mm3 (142-424); Red Blood Count 3.99 M/mm3 (4.20-5.40); Red Cell Distribution Width-SD 40.6 fL; White Blood Count 12.3 K/mm3 (4.8-10.8)
[2025-09-15 12:32] LABS: Alanine Aminotransferase 12 U/L (12-78); Albumin Level 3.8 g/dl (3.5-5.0); Albumin/Globulin Ratio 1.2 (1.1-1.8); Alkaline Phosphatase 89 U/L (38-126); Anion Gap 10.7 mEq/L (5-15); Aspartate Amino Transferase 20 U/L (14-36); Bilirubin,Total 0.5 mg/dl (0.2-1.3); Blood Urea Nitrogen 20 mg/dl (7-17); Calcium 9.5 mg/dl (8.4-10.2); Carbon Dioxide 25 mmol/L (22.0-30.0); Chloride 99 mmol/L (98-107); Creatinine,Serum 1.10 mg/dl (0.52-1.04); Estimated Glomerular Filt Rate 50 ml/min (>60); GFR (African American) 61 ML/MIN (>60); Globulin 3.3 g/dL (1.3-3.2); Glucose 106 mg/dl (74-100); Potassium 4.7 mmoL/L (3.5-5.1); Sodium 130 mmol/L (136-145); Total Protein,Serum 7.1 g/dl (6.3-8.2)
== END 2025-09-15 23:59 | disposition home or self-care (01) ==
LOC: LAB 11:44
PROVIDERS: PCP Family Medicine; Visit Provider Internal Medicine Pulmonary Disease
DX: J45.909 Unspecified asthma, uncomplicated (principal); J84.9 Interstitial pulmonary disease, unspecified; J90 Pleural effusion, not elsewhere classified; R91.8 Other nonspecific abnormal finding of lung field
CPT/HCPCS: 36415; 71046; 80053; 83615; 85025

== ENCOUNTER 2025-09-21 11:22 | Outpatient (CLI) | payer OTHER, SELFPAY ==
--- OUTSIDE RECORDS SUMMARY | 2025-09-10 11:15 | XMS_ITS | Encounter Summary ---
[facility] Address [address] [place] [address] Care Team Providers Care Orthopaedic Technologist Name Role Phone Benny Watt MD Primary Care Provider + Reason for Visit * Reason Comments FU from [facility] discharge / SOA Pt see's Dr. Corrales on 09-28-25 / Dr. Webb 09-15-25 Encounter Details Date Type Department Care Team (Late st Contact Info) Description 09/10/2025 11:15 AM EST Office Visit [facility] [address] [place] [address] Benny Watt MD [address] [place] [address] Primary hypertension (Primary Dx); Mass of left lung; Hypokalemia; Acute pulmonary embolism without acute cor pulmonale, unspecified pulmonary embolism type; intermediate teacher current use of diuretic; intermediate teacher current use of anticoagulant; Anemia, unspecified type; Wheezing Social History Tobacco Use Types Packs/Day Years Used Date Smoking Tobacco: Former Cigarettes 0.3 45.5 0 06/10/1976 - 12/16/2021 Electronic Cigarette Smokeless Tobacco: Never Comments:Quit cigarette star dahiana vaping 6mg. Alcohol Use Standard Drinks/Week Comments Not Currently 0 (1 standard drink = 0.6 oz pure alcohol) Occasional beer in summer at [facility] PHQ-2 Answer Date Recorded Retired PHQ-9: [...] Chief Complaint Patient presents with FU from [facility] discharge / SOA Pt see's Dr. Corrales on 09-28-25 / Dr. Webb 09-15-25 Subjective Corina Byrnes is a 65 y.o. who presents for transition of care after a 24-hour hospitalization at [facility]. Patient presented on August 31 with [...] Day. Dispense: 60 tablet; Refill: 11 5. longterm current use of diuretic - Basic Metabolic Panel; Future 6. longterm current use of anticoagulant - Hemoglobin & [...] Description 12/21/2025 8:15 AM EST Office Visit [facility] [address] [place] [address] Benny Watt MD [address] [place] [address] Scheduled Orders Name Type Priority Associated Diagnoses Orde r Schedule Basic Metabolic Panel Lab Routine Hypokalemia Primary hypertension intermediate teacher current use of diuretic Expected: 09/16/2025 (Approximate), Expires: 12/10/2026 Hemoglobin & Hematocrit, Blood Lab Routine Mass of left lung intermediate teacher current use of anticoagulant Anemia, unspecified type Expected: 09/16/2025 (Approximate), Expires: 12/10/2026 documented as of this encounter Visit Diagnoses Diagnosis Primary hypertension- Primary Unspecified essential hypertension Mass of left lung Hypokalemia Hypopotassemia Acute pulmonary embolism without acute cor pulmonale, unspecified pulmonary embolism type longterm current use of diuretic intermediate teacher current use of anticoagulant Anemia, unspecified type Wheezing documented in this encounter Additional Health Concerns Assessment Noted Time PHQ-2 Depression Total Score: 2 12/03/19 24 8:52 AM EST documented as of this encounter Care Teams Orthopaedic Technologist Relationship Specialty Start Date End Date Benny Watt MD [address] [place] [address] PCP - General Family Medicine 02/23/22 documented as of this encounter
--- OUTSIDE RECORDS SUMMARY | 2025-09-21 11:56 | XMS_ITS | Encounter Summary ---
[facility] Organization [facility] Address [address] [place] [address] Care Team Providers Care Ultrasound Technologist Sonographer Name Role Phone Benny Watt MD Primary Care Provider + Reason for Visit * Reason Onset Date Comments Med Refill 07/31/2025 Encounter Details Date Type Department Care Team (Late st Contact Info) Description 07/31/2025 Refill [facility] [address] [place] [address] Christopher Kern, STOCK ROOM MANAGER 210 [place] [address] Bipolar 1 disorder, depressed, partial remission Social History Tobacco Use Types Packs/Day Years Used Date Smoking Tobacco: Former Cigarettes 0.3 45.5 0 06/10/1976 - 12/16/2021 Electronic Cigarette Smokeless Tobacco: Never Comments:Quit cigarette star dahiana vaping 6mg. Alcohol Use Standard Drinks/Week Comments Not Currently 0 (1 standard drink = 0.6 oz pure alcohol) Occasional beer in summer at [facility] PHQ-2 Answer Date Recorded Retired [...] Description 12/21/2025 8:15 AM EST Office Visit [facility] [address] [place] [address] Benny Watt MD [address] [place] [address] documented as of this encounter Visit Diagnoses Diagnosis Bipolar 1 disorder, depressed, partial remission documented in this encounter Additional Health Concerns Assessment Noted Time PHQ-2 Depression Total Score: 2 12/03/19 24 8:52 AM EST documented as of this encounter Care Teams Ultrasound Technologist Sonographer Relationship Specialty Start Date End Date Benny Watt MD [address] [place] [address] PCP - General Family Medicine 02/23/22 documented as of this encounter
--- OUTSIDE RECORDS SUMMARY | 2025-09-21 11:56 | XMS_ITS | Clinical Summary ---
Author Organization [facility] Address [address] [place] [address] Care Team Providers Care Benefits Representative Name Role Phone Benny Watt MD [...] chloride (KLOR-CON M20) 20 MEQ CR tabletIndicatio ns:terminal system operator current use of diuretic Take 1 tablet [...] 60 capsule 2 025 Active HYDROcodone-ulisses taminophen (Sebec) 5-325 MG per tabletIndicatio ns:Foraminal stenosis of [...] capsule 1 025 2024 Discontinued HYDROcodone-ulisses taminophen (Sebec) 5-325 MG per tabletIndicatio ns:Foraminal stenosis of [...] Encounters Date Type Department Care Team Description 09/21/2025 Refill [facility] [address] [place] [address] Christopher Kern APRN Bipolar 1 disorder, depressed, partial remission 09/21/2025 Refill [facility] [address] [place] [address] Benny Watt MD Foraminal stenosis of cervical region; Arthritis of lumbar spine; Chronic pain syndrome 09/10/2025 11:15 AM EST Office Visit [facility] [address] [place] [address] Benny Watt MD Primary hypertension (Primary Dx); Mass of left lung; Hypokalemia; Acute pulmonary embolism without acute cor pulmonale, unspecified pulmonary embolism type; terminal system operator current use of diuretic; terminal system operator current use of anticoagulant; Anemia, unspecified type; Wheezing 09/10/2025 Travel 08/24/2025 Refill [facility] [address] [facility] [place] [address] Gamaliel Rdz MD Foraminal stenosis of cervical region; Arthritis of lumbar spine; Chronic pain syndrome 08/03/2025 Telephone [facility] [address] [facility] [place] [address] Christopher Kern APRN Med Management 07/31/2025 Refill [facility] [address] [facility] [place] [address] Christopher Kern APRN Bipolar 1 disorder, depressed, partial remission 07/30/2025 Telephone [facility] [address] [facility] [place] [address] Christopher Kern APRN Med Management 07/30/2025 Refill [facility] [address] [facility] [place] [address] Benny Watt MD Bipolar 1 disorder, depressed, partial remission 07/26/2025 Refill [facility] [address] [facility] [place] [address] Benny Watt MD Foraminal stenosis of cervical region; Arthritis of lumbar spine; Chronic pain syndrome 06/29/2025 Refill [facility] [address] [facility] [place] [address] Benny Watt MD Gastroesophageal reflux disease without esophagitis; Esophageal dysphagia 06/29/2025 Refill [facility] [address] [facility] [place] [address] Benny Watt MD Foraminal stenosis of cervical region; Arthritis of lumbar spine; Chronic pain syndrome 06/26/2025 Results Follow-Up [facility] [address] [place] [place] [address] Benny Watt MD 06/25/2025 9:00 AM EDT Office Visit [facility] [address] [place] [address] Benny Watt MD Essential hypertension (Primary Dx); Stage 3a chronic kidney disease (CKD); Foraminal stenosis of cervical region; Arthritis of lumbar spine; Chronic pain syndrome; terminal system operator (current) use of opiate analgesic; Encounter for [...] Karen Sowder Heart disease Maternal Grandfather Tim yman CAD Arthritis Maternal Grandmother Mami Fryman Depression [...] Stroke Mother Linnette mulligan Cancer Sister 1 [facility] Surgery hyste rectomy Drug abuse Sister 1 [facility] Sister 2 Nikki Isaak Heart disease [...] pure alcohol) Occasional beer in summer at [email or web address] PHQ-2 Answer Date Recorded Retired PHQ-9: Brief [...] Description 12/21/2025 8:15 AM EST Office Visit [facility] [address] [place] [address] Benny Watt MD [address] [place] [address] Health Maintenance Due Date Last Done Comments Annual Gynecologic Pelvic an d Breast Exam 1961 TDAP/TD VACCINES (1 - Tdap) 02/01/1980 COLOGUARD 2006 COLON CANCER SCREENING 5 YEA R SIGMOIDOSCOPY [address] COLONOGRAPHY 2006 FECAL OCCULT BLOOD TEST 2006 FIT Testing (1 year) 2006 ZOSTER VACCINE (1 of 2) 2011 HEPATITIS C SCREENING 02/23/2022 ANNUAL PHYSICAL 05/31/2024 05/31/2023 MAMMOGRAM 07/04/2024 07/04/2022, 02/2022, 05/26/2022 INFLUENZA VACCINE 05/22/2025 LIPID PANEL 06/25/2026 06/25/2025, 11/23, 05/31/2023, Additional history exists COLONOSCOPY 04/30/2030 04/30/2020 (Nancy ent-Reported (Performed Externally)) COLORECTAL CANCER SCREENING 04/30/2030 Pneumococcal Vaccine 50+ Completed 05/31/2023 Procedures Procedure Name Priority Date/Time Associated Diagnosis Comments SCANNED - LABS 09/15/2025 SCANNED - IMAGING 09/15/2025 SCANNED EKG 08/31/2025 SCANNED - LABS 08/31/2025 SCANNED - LABS 08/31/2025 SCANNED - LABS 08/31/2025 SCANNED - IMAGING 08/31/2025 SCANNED - IMAGING 08/31/2025 LIPID PANEL Routine 06/25/2025 9:19 AM EDT Stage 3a chronic kidney disease (CKD) Hypercholesterolemia RENAL FUNCTION PANEL Routine 06/25/2025 9:19 AM EDT Essential hypertension POCT MEDLINE 12 PANEL URINE DRUG SCREEN Routine 06/25/2025 9:12 AM EDT terminal system operator (current) use of opiate analgesic POC ALBUMIN/CREATININE RATIO Routine 06/25/2025 9:08 AM EDT Stage 3a chronic kidney disease (CKD) SCANNED - MAMMO 07/04/2022 from Last 3 Months or Most Recently Relevant to Health Maintenance Results * IMAGING SCANNED (09/15/2025) Only the most recent of3 resultswithin the time period is included. Anatomical Region Laterality Modality Radiographic Lisa ging Benny Watt MD IMG DIAGNOSTIC IMAGING O RDERABLES Final Result * LABS SCANNED (09/15/2025) Only the most recent of4 resultswithin the time period is included. Benny Watt MD LAB BLOOD ORDERABLES Fin al Result * ECG Scan (08/31/2025) Benny Watt MD ECG ORDERABLES Final Re sult * (ABNORMAL) Renal Function Panel (06/25/2025 9:19 AM EDT) Glucose 85 65 - 99 mg/dL [facility] [...] 06/25/2025 9:19 AM EDT 06/25/2025 Narrative [facility] ([facility]) - 06/26/2025 3:07 AM EDT Performed at: [address] [place] [id number] Transit Mixer Driver: Simon Connolly MD, Phone: [phone] Patient Fasting: Y us Benny Watt MD LAB BLOOD ORDERABLES Fin al Result [facility]) [address] [place] [address], [facility] [address] [place] [address], * (ABNORMAL) Lipid Panel (06/25/2025 9:19 AM EDT) Pathologist [facility] Total Cholesterol 160 0 - 200 mg/dL [...] 06/25/2025 9:19 AM EDT 06/25/2025 Narrative [facility] ([facility]) - 06/26/2025 3:07 AM EDT Performed at: [address] [place] [id number] Transit Mixer Driver: Simon Connolly MD, Phone: [phone] Patient Fasting: Y Benny Watt MD LAB BLOOD ORDERABLES Fin al Result [facility] ([facility]) [address] [place] [address], [place] [phone] [facility] [address] [place] [address], [place] [phone] * (ABNORMAL) POC Medline 12 Panel Urine Drug Screen (06/25/2025 9:12 AM EDT) [facility] Amphetamine Screen, Urine Negative Negative AMP INTERNAL [...] THC INTERNAL CONTROL Passed Passed Lot Number [id number] Expiration Date 11/06/2026 Urine 06/25/2025 9:12 AM [...] Most Recently Relevant to Health Maintenance Insurance [employer] Care Teams Benefits Representative Relationship Specialty Start Date End Date Benny Watt MD [facility] [place] [address] PCP - General Family Medicine 02/23/22
--- OUTSIDE RECORDS SUMMARY | 2025-09-21 11:56 | XMS_ITS | Encounter Summary ---
[facility] Address [address] [place] [address] Care Team Providers Care Fire Safety Inspector Name Role Phone Benny Watt MD Primary Care Provider + Reason for Visit * Reason Onset Date Comments Med Management 07/30/2025 Encounter Details Date Type Department Care Team (Late st Contact Info) Description 07/30/2025 Telephone [facility] [address] [facility] [place] [address] Christopher Kern, UPPER DOUBLER [address] [place] [address] Med Management Social History Tobacco Use Types Packs/Day Years Used Date Smoking Tobacco: Former Cigarettes 0.3 45.5 0 06/10/1976 - 12/16/2021 Electronic Cigarette Smokeless Tobacco: Never Comments:Quit cigarette star dahiana vaping 6mg. Alcohol Use Standard Drinks/Week Comments Not Currently 0 (1 standard drink = 0.6 oz pure alcohol) Occasional beer in summer at [facility] PHQ-2 Answer Date Recorded Retired PHQ-9: Brief [...] PATIENT WAS NEEDING HER [facility] NOT [facility] documented in this encounter Plan of Treatment Upcoming Encounters Date Type Department Care Team (Late st Contact Info) Description 12/21/2025 8:15 AM EST Office Visit [facility] [address] [place] [address] Benny Watt MD [address] [place] [address] documented as of this encounter Visit Diagnoses Diagnosis Bipolar 1 disorder, depressed, partial remission documented in this encounter Additional Health Concerns Assessment Noted Time PHQ-2 Depression Total Score: 2 12/03/19 24 8:52 AM EST documented as of this encounter Care Teams Fire Safety Inspector Relationship Specialty Start Date End Date Benny Watt MD [address] [place] [address] PCP - General Family Medicine 02/23/22 documented as of this encounter
--- OUTSIDE RECORDS SUMMARY | 2025-09-21 11:56 | XMS_ITS | Encounter Summary ---
Author Organization [facility] Address [address] [place] [address] Care Team Providers Care Systems Requirements Planner Name Role Phone Benny Watt MD Primary Care Provider + Reason for Visit * Reason Onset Date Comments Med Refill 07/26/2025 Encounter Details Date Type Department Care Team (Late st Contact Info) Description 07/26/2025 Refill [facility] [address] [place] [address] Benny Watt MD 210 [place] [address] Foraminal stenosis of cervical region; [...] pure alcohol) Occasional beer in summer at [facility] PHQ-2 Answer Date Recorded Retired [...] Description 12/21/2025 8:15 AM EST Office Visit [facility] [address] [place] [address] Benny Watt MD [address] [place] [address] documented as of this encounter Visit Diagnoses Diagnosis Foraminal stenosis of cervical region Arthritis of lumbar spine Chronic pain syndrome documented in this encounter Additional Health Concerns Assessment Noted Time PHQ-2 Depression Total Score: 2 12/03/19 24 8:52 AM EST documented as of this encounter Care Teams Systems Requirements Planner Relationship Specialty Start Date End Date Benny Watt MD [address] [place] [address] PCP - General Family Medicine 02/23/22 documented as of this encounter
--- OUTSIDE RECORDS SUMMARY | 2025-09-21 11:56 | XMS_ITS | Encounter Summary ---
[facility] Address [address] [place] [address] Care Team Providers Care Pipe Bending Machine Operator Name Role Phone Benny Watt MD [...] pure alcohol) Occasional beer in summer at [facility] PHQ-2 Answer Date Recorded Retired PHQ-9: Brief [...] [facility] [address] [facility] [place] [place] [address] Benny Watt MD [address] [place] [address] documented as of this encounter Visit Diagnoses Not on filedocumented in this encounter Additional Health Concerns Assessment Noted Time PHQ-2 Depression Total Score: 2 12/03/19 24 8:52 AM EST documented as of this encounter Care Teams Pipe Bending Machine Operator Relationship Specialty Start Date End Date Benny Watt MD [address] [facility] [place] [address] PCP - General Family Medicine 02/23/22 documented as of this encounter
--- OUTSIDE RECORDS SUMMARY | 2025-09-21 11:56 | XMS_ITS | Encounter Summary ---
[facility] Address [address] [place] [address] Care Team Providers Care Forensic Engineer Name Role Phone Benny Watt MD Primary Care Provider + Encounter Details Date Type Department Care Team (Late st Contact Info) Description 07/30/2025 Refill [facility] [address] [place] [address] Benny Watt MD [address] [place] [address] Bipolar 1 disorder, depressed, partial remission Social History Tobacco Use Types Packs/Day Years Used Date Smoking Tobacco: Former Cigarettes 0.3 45.5 0 06/10/1976 - 12/16/2021 Electronic Cigarette Smokeless Tobacco: Never Comments:Quit cigarette star dahiana vaping 6mg. Alcohol Use Standard Drinks/Week Comments Not Currently 0 (1 standard drink = 0.6 oz pure alcohol) Occasional beer in summer at [facility] PHQ-2 Answer Date Recorded Retired PHQ-9: [...] where request should be sent: [facility] Additional details provided by patient: she is out of refills and the pharmacy is saying they have been trying to contact the office to get an approval of the refill Best call back number: [phone] Does the patient have less than a 3 day supply: [x] Yes [] No Dante Infante 07/30/25, 13:01 EDT documented in this encounter Plan of Treatment Upcoming Encounters Date Type Department Care Team (Late st Contact Info) Description 12/21/2025 8:15 AM EST Office Visit [facility] [address] [place] [address] Benny Watt MD [address] [place] [address] documented as of this encounter Visit Diagnoses Diagnosis Bipolar 1 disorder, depressed, partial remission documented in this encounter Additional Health Concerns Assessment Noted Time PHQ-2 Depression Total Score: 2 12/03/19 24 8:52 AM EST documented as of this encounter Care Teams Forensic Engineer Relationship Specialty Start Date End Date Benny Watt MD [address] [place] [address] PCP - General Family Medicine 02/23/22 documented as of this encounter
--- OUTSIDE RECORDS SUMMARY | 2025-09-21 11:56 | XMS_ITS | Encounter Summary ---
[facility] Organization [facility] Address [address] [place] [address] Care Team Providers Care Crop Or Livestock Tenant Farmer Name Role Phone Benny Watt MD Primary Care Provider + Reason for Visit * Reason Onset Date Comments Med Refill 09/21/2025 Encounter Details Date Type Department Care Team (Late st Contact Info) Description 09/21/2025 Refill [facility] [address] [place] [address] Christopher Kern, PHYSICIAN CODER [address] [place] [address] Bipolar 1 disorder, depressed, partial remission Social History Tobacco Use Types Packs/Day Years Used Date Smoking Tobacco: Former Cigarettes 0.3 45.5 0 06/10/1976 - 12/16/2021 Electronic Cigarette Smokeless Tobacco: Never Comments:Quit cigarette star dahiana vaping 6mg. Alcohol Use Standard Drinks/Week Comments Not Currently 0 (1 standard drink = 0.6 oz pure alcohol) Occasional beer in summer at [facility] PHQ-2 Answer Date Recorded Retired PHQ-9: Brief [...] Description 12/21/2025 8:15 AM EST Office Visit [facility] [address] [address] Benny Watt MD [address] [place] [address] documented as of this encounter Visit Diagnoses Diagnosis Bipolar 1 disorder, depressed, partial remission documented in this encounter Additional Health Concerns Assessment Noted Time PHQ-2 Depression Total Score: 2 12/03/19 24 8:52 AM EST documented as of this encounter Care Teams Crop Or Livestock Tenant Farmer Relationship Specialty Start Date End Date Benny Watt MD [address] [place] [address] PCP - General Family Medicine 02/23/22 documented as of this encounter
--- OUTSIDE RECORDS SUMMARY | 2025-09-21 11:56 | XMS_ITS | Encounter Summary ---
[facility] Address [address] [place] [address] Care Team Providers Care First Aid Trainer Name Role Phone Benny Watt MD Primary Care Provider + Reason for Visit * Reason Onset Date Comments Med Refill 02/23/2025 Encounter Details Date Type Department Care Team (Late st Contact Info) Description 02/23/2025 Refill [facility] [address] [place] [address] Benny Watt MD [address] [place] [address] Arthritis of lumbar spine; Foraminal [...] alcohol) Occasional beer in summer at [facility] PHQ-2 Answer Date Recorded Retired PHQ-9: Brief [...] Description 12/21/2025 8:15 AM EST Office Visit [facility] [address] [place] [address] Benny Watt MD [address] [place] [address] documented as of this encounter Visit Diagnoses Diagnosis Arthritis of lumbar spine Foraminal stenosis of cervical region Chronic pain syndrome documented in this encounter Additional Health Concerns Assessment Noted Time PHQ-2 Depression Total Score: 2 12/03/19 24 8:52 AM EST documented as of this encounter Care Teams First Aid Trainer Relationship Specialty Start Date End Date Benny Watt MD [address] [place] [address] PCP - General Family Medicine 02/23/22 documented as of this encounter
--- OUTSIDE RECORDS SUMMARY | 2025-09-21 11:56 | XMS_ITS | Encounter Summary ---
[facility] Address [address] [place] [address] Care Team Providers Care Environmental Compliance Engineer Name Role Phone Benny Watt MD Primary Care Provider + Reason for Visit * Reason Onset Date Comments Med Management 08/03/2025 Encounter Details Date Type Department Care Team (Late st Contact Info) Description 08/03/2025 Telephone [facility] [address] [facility] [place] [address] Christopher Kern, EQUIPMENT MAINTENANCE TECH [address] [place] [address] Med Management Social History Tobacco Use Types Packs/Day Years Used Date Smoking Tobacco: Former Cigarettes 0.3 45.5 0 06/10/1976 - 12/16/2021 Electronic Cigarette Smokeless Tobacco: Never Comments:Quit cigarette star dahiana vaping 6mg. Alcohol Use Standard Drinks/Week Comments Not Currently 0 (1 standard drink = 0.6 oz pure alcohol) Occasional beer in summer at [facility] PHQ-2 Answer Date Recorded Retired PHQ-9: [...] requested that the pharmacy be changed from [facility] in [place] to [place]. I contacted [facility] in [place] and requested for the medication of ziprasidone (GEODON) 60 MG capsule yenny pulled from the [facility] in [place], the pharmacists stated she would take care of it. * Telephone Encounter - Joelle Rasmussen RegSched Rep - 08/03/2025 9:16 AM EDT ZIPRASIDONE WAS SENT TO [facility] IN [place] BUT IT NEEDED TO BE SENT TO [facility] IN [place] documented in this encounter Plan of Treatment Upcoming Encounters Date Type Department Care Team (Late st Contact Info) Description 12/21/2025 8:15 AM EST Office Visit [facility] [address] [facility] [place] [address] Benny Watt MD [address] [place] [address] documented as of this encounter Visit Diagnoses Not on filedocumented in this encounter Additional Health Concerns Assessment Noted Time PHQ-2 Depression Total Score: 2 12/03/19 24 8:52 AM EST documented as of this encounter Care Teams Environmental Compliance Engineer Relationship Specialty Start Date End Date Benny Watt MD [address] [place] [address] PCP - General Family Medicine 02/23/22 documented as of this encounter
--- OUTSIDE RECORDS SUMMARY | 2025-09-21 11:56 | XMS_ITS | Encounter Summary ---
[facility] Address [address] [place] [address] Care Team Providers Care Accounts Receivable Clerk Name Role Phone Benny Watt MD Primary Care Provider + Reason for Visit * Reason Onset Date Comments Med Refill 06/23/2022 Encounter Details Date Type Department Care Team (Late Contact Info) Description 06/23/2022 Refill [facility] [address] [facility] [place] [address] Benny Watt MD 210 [facility] [place] [address] Arthritis of lumbar spine; Foraminal [...] Description 12/21/2025 8:15 AM EST Office Visit [facility] [address] [facility] [address] [place] [address] Benny Watt MD [address] [place] [address] documented as of this encounter Visit Diagnoses Diagnosis Arthritis of lumbar spine Foraminal stenosis of cervical region Chronic pain syndrome documented in this encounter Care Teams Accounts Receivable Clerk Relationship Specialty Start Date End Date Bneny Watt MD [address] [place] [address] PCP - General Family Medicine 02/23/22 documented as of this encounter
--- OUTSIDE RECORDS SUMMARY | 2025-09-21 11:56 | XMS_ITS | Encounter Summary ---
[facility] Address [address] [place] [address] Care Team Providers Care Ocean Freight Manager Name Role Phone Benny Watt MD Primary Care Provider + Reason for Visit * Reason Onset Date Comments Med Refill 09/21/2025 Encounter Details Date Type Department Care Team (Late st Contact Info) Description 09/21/2025 Refill [facility] [address] [place] [address] Benny Watt MD [address] [place] [address] Foraminal stenosis of cervical region; [...] pure alcohol) Occasional beer in summer at [facility] PHQ-2 Answer Date Recorded [...] [facility] [address] [place] [phone] Benny Watt MD [address] [place] [address] documented as of this encounter Visit Diagnoses Diagnosis Foraminal stenosis of cervical region Arthritis of lumbar spine Chronic pain syndrome documented in this encounter Additional Health Concerns Assessment Noted Time PHQ-2 Depression Total Score: 2 12/03/19 24 8:52 AM EST documented as of this encounter Care Teams Ocean Freight Manager Relationship Specialty Start Date End Date Benny Watt MD [address] [place] [address] PCP - General Family Medicine 02/23/22 documented as of this encounter
--- OUTSIDE RECORDS SUMMARY | 2025-09-21 11:56 | XMS_ITS | Encounter Summary ---
[facility] Address [address] [place] [address] Care Team Providers Care Belt Operator Name Role Phone Benny Watt MD Primary Care Provider + Reason for Visit * Reason Onset Date Comments Med Refill 08/24/2025 Encounter Details Date Type Department Care Team (Late st Contact Info) Description 08/24/2025 Refill [facility] [address] [place] [address] Gamaliel Rdz MD [address] [place] [address] Foraminal stenosis of cervical region; [...] beer in summer at [facility] PHQ-2 Answer Date Recorded Retired PHQ-9: Brief [...] Description 12/21/2025 8:15 AM EST Office Visit [facility] [address] [place] [address] Benny Watt MD [address] [place] [address] documented as of this encounter Visit Diagnoses Diagnosis Foraminal stenosis of cervical region Arthritis of lumbar spine Chronic pain syndrome documented in this encounter Additional Health Concerns Assessment Noted Time PHQ-2 Depression Total Score: 2 12/03/19 24 8:52 AM EST documented as of this encounter Care Teams Belt Operator Relationship Specialty Start Date End Date Benny Watt MD [address] [place] [address] PCP - General Family Medicine 02/23/22 documented as of this encounter
--- OUTSIDE RECORDS SUMMARY | 2025-09-21 11:56 | XMS_ITS | Encounter Summary ---
[facility] Address [address] [place] [address] Care Team Providers Care Splicer Machine Operator Name Role Phone Benny Watt MD Primary Care Provider + Encounter Details Date Type Department Care Team (Late Contact Info) Description 06/26/2025 Results Follow-Up [facility] [address] [place] [address] Benny Watt MD [address] [place] [address] Social History Tobacco Use Types Packs/Day Years Used Date Smoking Tobacco: Former Cigarettes 0.3 45.5 0 06/10/1976 - 12/16/2021 Electronic Cigarette Smokeless Tobacco: Never Comments:Quit cigarette star dahiana vaping 6mg. Alcohol Use Standard Drinks/Week Comments Not Currently 0 (1 standard drink = 0.6 oz pure alcohol) Occasional beer in summer at [facility] PHQ-2 Answer Date Recorded Retired PHQ-9: [...] Description 12/21/2025 8:15 AM EST Office Visit [facility] [address] [place] [address] Benny Watt MD [address] [place] [address] documented as of this encounter Visit Diagnoses Diagnosis Stage 3a chronic kidney disease (CKD)- Primary documented in this encounter Additional Health Concerns Assessment Noted Time PHQ-2 Depression Total Score: 2 12/03/19 24 8:52 AM EST documented as of this encounter Care Teams Splicer Machine Operator Relationship Specialty Start Date End Date Benny Watt MD [address] [place] [address] PCP - General Family Medicine 02/23/22 documented as of this encounter
== END 2025-09-21 23:59 | disposition home or self-care (01) ==
LOC: LAB 11:24
PROVIDERS: PCP Family Medicine; Visit Provider Internal Medicine Pulmonary Disease
DX: R69 Illness, unspecified (principal)

== ENCOUNTER 2025-09-23 18:44 | Emergency (ER) | payer OTHER, SELFPAY ==
--- OUTSIDE RECORDS SUMMARY | 2025-09-10 11:15 | XMS_ITS | Encounter Summary ---
[facility] [address] [place] [address] Care Team Providers Care Metal Inspector Name Role Phone Benny Watt MD Primary Care Provider + Reason for Visit * Reason Comments FU from [facility] discharge / SOA Pt see's Dr. Corrales on 09-28-25 / Dr. Webb 09-15-25 Encounter Details Date Type Department Care Team (Late st Contact Info) Description 09/10/2025 11:15 AM EST Office Visit [facility] [address] [place] [address] Benny Watt MD [address] [place] [address] Primary hypertension (Primary Dx); Mass of left lung; Hypokalemia; Acute pulmonary embolism without acute cor pulmonale, unspecified pulmonary embolism type; intermediate current use of diuretic; copper tapper current use of anticoagulant; Anemia, unspecified type; Wheezing Social History Tobacco Use Types Packs/Day Years Used Date Smoking Tobacco: Former Cigarettes 0.3 45.5 0 06/10/1976 - 12/16/2021 Electronic Cigarette Smokeless Tobacco: Never Comments:Quit cigarette star dahiana vaping 6mg. Alcohol Use Standard Drinks/Week Comments Not Currently 0 (1 standard drink = 0.6 oz pure alcohol) [facility]ional [facility] PHQ-2 Answer Date Recorded Retired PHQ-9: Brief Depression Severity Measure Score 16 11/30/2022 PHQ-2 Answer Date Recorded Patient Health Questionnaire-2 Score 0 06/25/2025 Comments Unknown Sex and Gender Information Value Date Recorded Sex Assigned at Female 06/18/2025 7:55 AM EDT Legal Sex Female 12:08 PM EDT Gender Identity Not on file Sexual Orientation Not on file documented as of this encounter Last Filed Vital Signs Vital Sign Reading Time Taken Comments Blood Pressure 92/60 09/10/2025 11:19 AM EST Pulse 87 09/10/2025 11:19 AM EST Temperature 36.2 C (97.1 F) 09/10/2025 11:19 AM EST Respiratory Rate 20 09/10/2025 11:19 AM EST Oxygen Saturation 94% 09/10/2025 11:19 AM EST Inhaled Oxygen Concentration - - Weight 82.6 kg (182 lb) 09/10/2025 11:19 AM EST Height 154.9 cm (5' 0.98 ) 09/10/2025 11:[address] Body Mass Index 34.41 09/10/2025 11:19 AM EST documented in this encounter Progress Notes * Benny Watt MD - 09/10/2025 11:15 AM EST Chief Complaint Patient presents with FU from [facility] discharge / SOA Pt see's Dr. Corrales on 09-28-25 / Dr. Webb 09-15-25 Subjective Corina Byrnes is a 65 y.o. who presents for transition of care after a 24-hour hospitalization at [facility]. Patient presented on August 31 with shortness of breath. Patient was found to have a right sided pulmonary embolism and early pulmonary infarct as well as a left upper lobe lung mass with left sided hilar lymphadenopathy, a hepatic and an adrenal lesion concerning for metastases. There was no right heart strain on imaging. Patient was started on Lovenox and transition to Eliquis. She was evaluated by both cardiology and pulmonology while hospitalized. She was scheduled for outpatient follow-up with cardiology next week with pulmonology the following week. She is accompanied today by her daughter who expresses some concern about the timeframe in which follow-up visits are occurring. Bronchoscopy will need to occur and patient and family would like this done as soon as possible. She is taking her Eliquis as prescribed. Other issues identified were mild anemia as well as mild hypokalemia. Patient has right posterior chest wall pain around the area of the scapula that hurts with movement and deep breathing. She reports dyspnea on exertion, bendopnea, as well as sensation of wheezing. She was discharged on September 01 The following portions of the patient's history were reviewed and updated as appropriate: allergies, current medications, past family history, past medical history, past social history, past surgicalhistory, and problem list. Review of Systems Objective Vital Signs: BP 92/60 Pulse 87 Temp 97.1 ??F (36.2 ??C) Resp 20 Ht 154.9 cm (60.98 ) Wt 82.6 kg (182 lb) SpO2 94% BMI 34.41 kg/m?? Physical Exam Vitals reviewed. Constitutional: Appearance: Normal appearance. HENT: Head: Normocephalic. Nose: Nose normal. Mouth/Throat: Mouth: Mucous membranes are moist. Eyes: Pupils: Pupils are equal, round, and reactive to light. Cardiovascular: Rate and Rhythm: Normal rate. Pulmonary: Effort: Pulmonary effort is normal. Breath sounds: Wheezing present. Lymphadenopathy: Cervical: No cervical adenopathy. Skin: Coloration: Skin is not jaundiced or pale. Neurological: Mental Status: She is alert. Result Review Assessment and Plan Diagnoses and all orders for this visit: 1. Primary hypertension (Primary) - Basic Metabolic Panel; Future 2. Mass of left lung - Hemoglobin & Hematocrit, Blood; Future 3. Hypokalemia - Basic Metabolic Panel; Future 4. Acute pulmonary embolism without acute cor pulmonale, unspecified pulmonary embolism type - apixaban (ELIQUIS) 5 MG tablet tablet; Take 1 tablet by mouth 2 (Two) Times a Day. Dispense: 60 tablet; Refill: 11 5. copper tapper current use of diuretic - Basic Metabolic Panel; Future 6. copper tapper current use of anticoagulant - Hemoglobin & Hematocrit, Blood; Future 7. Anemia, unspecified type - Hemoglobin & Hematocrit, Blood; Future 8. Wheezing - albuterol sulfate HFA 108 (90 Base) MCG/ACT inhaler; Inhale 2 puffs Every 4 (Four) Hours As Needed for Wheezing. Dispense: 18 g; Refill: 1 Plan 1. Patient is mildly hypotensive in office although asymptomatic. Discontinue HCTZ 12.5 mg. Reassess potassium in 1 to 2 weeks. Patient will begin regular home blood pressure monitoring 2. Anemia was newly identified and mild. Anemia is not expected to cause symptoms. Due to use of DOAC an H&H will be checked in 1 to 2 weeks 3. Mass of left lung. Follow-up with pulmonology for bronchoscopy. We will try and assist with getting her appointment moved up 4. Patient does not need to follow-up with cardiology and she may cancel that appointment. Follow Up No follow-ups on file. Patient was given instructions and counseling regarding her condition or for health maintenance advice. Please see specific information pulled into the AVS if appropriate. documented in this encounter Plan of Treatment Upcoming Encounters Date Type Department Care Team (Late st Contact Info) Description 09/24/2025 2:45 PM EST Office Visit [facility] [address] [place] [phone] Benny Watt MD [address] [place] [address] 12/21/2025 8:15 AM EST Office Visit [facility] [address] [place] [id number] Benny Watt MD [address] [place] [address] Scheduled Orders Name Type Priority Associated Diagnoses Orde r Schedule Basic Metabolic Panel Lab Routine Hypokalemia Primary hypertension copper tapper current use of diuretic Expected: 09/16/2025 (Approximate), Expires: 12/10/2026 Hemoglobin & Hematocrit, Blood Lab Routine Mass of left lung copper tapper current use of anticoagulant Anemia, unspecified type Expected: 09/16/2025 (Approximate), Expires: 12/10/2026 documented as of this encounter Visit Diagnoses Diagnosis Primary hypertension- Primary Unspecified essential hypertension Mass of left lung Hypokalemia Hypopotassemia Acute pulmonary embolism without acute cor pulmonale, unspecified pulmonary embolism type copper tapper current use of diuretic copper tapper current use of anticoagulant Anemia, unspecified type Wheezing documented in this encounter Additional Health Concerns Assessment Noted Time PHQ-2 Depression Total Score: 2 12/03/19 24 8:52 AM EST documented as of this encounter Care Teams Metal Inspector Relationship Specialty Start Date End Date Benny Watt MD [address] [facility] [place] [address] PCP - General Family Medicine 02/23/22 documented as of this encounter
[2025-09-23] VITALS (22 sets, daily range): BP systolic 117–142; BP diastolic 68–98; PULSE 96–110; RESP 18–38; TEMP 37.6; O2SAT 94–99; BMI 31.8
--- OUTSIDE RECORDS SUMMARY | 2025-09-23 19:03 | XMS_ITS | Encounter Summary ---
[facility] Organization [facility] Address [address] [place] [address] Care Team Providers Care Ripening Room Attendant Name Role Phone Benny Watt MD Primary Care Provider + Reason for Visit * Reason Onset Date Comments Med Refill 02/23/2025 Encounter Details Date Type Department Care Team (Late st Contact Info) Description 02/23/2025 Refill [facility] [address] [place] [address] Benny Watt MD [address] [place] [address] Arthritis of lumbar spine; Foraminal [...] Description 09/24/2025 2:45 PM EST Office Visit [facility] [address] [place] [address] Benny Watt MD [address] [place] [address] 12/21/2025 8:15 AM EST Office Visit [facility] [address] [place] [address] Benny Watt MD [address] [place] [address] documented as of this encounter Visit Diagnoses Diagnosis Arthritis of lumbar spine Foraminal stenosis of cervical region Chronic pain syndrome documented in this encounter Additional Health Concerns Assessment Noted Time PHQ-2 Depression Total Score: 2 12/03/19 24 8:52 AM EST documented as of this encounter Care Teams Ripening Room Attendant Relationship Specialty Start Date End Date Benny Watt MD [address] [place] [address] PCP - General Family Medicine 02/23/22 documented as of this encounter
--- OUTSIDE RECORDS SUMMARY | 2025-09-23 19:04 | XMS_ITS | Encounter Summary ---
[facility] Address [address] [place] [address] Care Team Providers Care Technical Sales Representatives Name Role Phone Benny Watt MD Primary Care Provider + Reason for Visit * Reason Onset Date Comments Med Refill 06/23/2022 Encounter Details Date Type Department Care Team (Late Contact Info) Description 06/23/2022 Refill [facility] 210 [facility] [place] [address] Benny Watt MD [address] [facility] [place] [address] Arthritis of lumbar spine; Foraminal [...] Encounters Date Type Department Care Team (Late Contact Info) Description 09/24/2025 2:45 PM EST Office Visit [facility] [address] [facility] [place] [address] Benny Watt MD [address] [place] [address] 12/21/2025 8:15 AM EST Office Visit [facility] [address] [place] [address] Benny Watt MD [address] [place] [address] documented as of this encounter Visit Diagnoses Diagnosis Arthritis of lumbar spine Foraminal stenosis of cervical region Chronic pain syndrome documented in this encounter Care Teams Technical Sales Representatives Relationship Specialty Start Date End Date Benny Watt MD [address] [place] [address] PCP - General Family Medicine 02/23/22 documented as of this encounter
--- OUTSIDE RECORDS SUMMARY | 2025-09-23 19:04 | XMS_ITS | Encounter Summary ---
Author Organization [facility] Address [address] [place] [address] Care Team Providers Care Wage Conciliator Name Role Phone Benny Watt MD Primary Care Provider + Reason for Visit * Reason Onset Date Comments Med Refill 09/21/2025 Encounter Details Date Type Department Care Team (Late st Contact Info) Description 09/21/2025 Refill [facility] [address] [place] [address] Christopher Kern, DIRECTOR WORKFORCE MANAGEMENT [address] [place] [address] Bipolar 1 disorder, depressed, partial remission Social History Tobacco Use Types Packs/Day Years Used Date Smoking Tobacco: Former Cigarettes 0.3 45.5 0 06/10/1976 - 12/16/2021 Electronic Cigarette Smokeless Tobacco: Never Comments:Quit cigarette star dahiana vaping 6mg. Alcohol Use Standard Drinks/Week Comments Not Currently 0 (1 standard drink = 0.6 oz pure alcohol) Occasional beer in summer at [facility] PHQ-2 Answer Date Recorded [...] 09/24/2025 2:45 PM EST Office Visit [facility] [address] [place] [address] Benny Watt MD [address] [place] [address] 12/21/2025 8:15 AM EST Office Visit [facility] [address] [place] [address] Benny Watt MD [address] [place] [address] documented as of this encounter Visit Diagnoses Diagnosis Bipolar 1 disorder, depressed, partial remission documented in this encounter Additional Health Concerns Assessment Noted Time PHQ-2 Depression Total Score: 2 12/03/19 24 8:52 AM EST documented as of this encounter Care Teams Wage Conciliator Relationship Specialty Start Date End Date Benny Watt MD [address] [place] [address] PCP - General Family Medicine 02/23/22 documented as of this encounter
--- OUTSIDE RECORDS SUMMARY | 2025-09-23 19:04 | XMS_ITS | Encounter Summary ---
[facility] Address [address] [place] [address] Care Team Providers Care Car Rental Agent Name Role Phone Benny Watt MD Primary Care Provider + Reason for Visit * Reason Onset Date Comments Med Refill 07/31/2025 Encounter Details Date Type Department Care Team (Late st Contact Info) Description 07/31/2025 Refill [facility] [address] [place] [address] Christopher Kern, FACILITY MECHANIC [address] [place] [address] Bipolar 1 disorder, depressed, partial remission Social History Tobacco Use Types Packs/Day Years Used Date Smoking Tobacco: Former Cigarettes 0.3 45.5 0 06/10/1976 - 12/16/2021 Electronic Cigarette Smokeless Tobacco: Never Comments:Quit cigarette star dahiana vaping 6mg. Alcohol Use Standard Drinks/Week Comments Not Currently 0 (1 standard drink = 0.6 oz pure alcohol) Occasional beer in summer at [facility] PHQ-2 Answer Date Recorded Retired PHQ-9: [...] Description 09/24/2025 2:45 PM EST Office Visit [facility] [address] [place] [address] Benny Watt MD [address] [place] [address] 12/21/2025 8:15 AM EST Office Visit [facility] MED[facility] [address] [place] [address] Benny Watt MD [address] [place] [address] documented as of this encounter Visit Diagnoses Diagnosis Bipolar 1 disorder, depressed, partial remission documented in this encounter Additional Health Concerns Assessment Noted Time PHQ-2 Depression Total Score: 2 12/03/19 24 8:52 AM EST documented as of this encounter Care Teams Car Rental Agent Relationship Specialty Start Date End Date Benny Watt MD [address] [place] [address] PCP - General Family Medicine 02/23/22 documented as of this encounter
--- OUTSIDE RECORDS SUMMARY | 2025-09-23 19:04 | XMS_ITS | Clinical Summary ---
Author Organization [facility] Address [address] [place] [address] Care Team Providers Care Carriage Dogger Name Role Phone Benny Watt MD Primary [...] chloride (KLOR-CON M20) 20 MEQ CR tabletIndicatio ns:salvage determiner current use of diuretic Take 1 tablet by mouth Daily. 90 tablet 1 025 Active diazePAM (VALIUM) 10 MG tabletIndicatio ns:Generalized anxiety disorder TAKE 1 TABLET BY MOUTH THREE TIMES DAILY NEEDED FOR ANXIETY 90 tablet 2 025 Active omeprazole (priLOSEC) 40 MG capsuleIndicati [...] TWICE DAILY 180 tablet 1 025 Active Eliquis DVT/PE Starter Pack tablet [...] As Needed for Wheezing. 18 g 1 025 Active HYDROcodone-ulisses taminophen ([place]) 5-325 MG per tabletIndicatio ns:Foraminal stenosis of cervical region,Arthriti s of lumbar spine,Chronic pain syndrome Take 1.5 tablets by mouth Every 8 (Eight) Hours As Needed for Severe Pain. 135 tablet 025 Active ziprasidone (GEODON) 60 MG capsuleIndicati ons:Bipolar 1 disorder, depressed, partial remission Take 1 capsule by mouth 2 (Two) Times a Day With Meals. 60 capsule 2 025 Active temazepam (RESTORIL) 15 MG capsuleIndicati ons:Insomnia, unspecified type Take 1 capsule by mouth At Night As Needed for Sleep. 30 capsule 12/03/2 025 Active amitriptyline (ELAVIL) 25 MG tabletIndicatio ns:Insomnia, unspecified type Take 1 tablet by mouth Every Night. 90 tablet 1 025 2024 Discontinued(N ot Efficacious) hydroCHLOROthia zide (MICROZIDE) 12.5 MG capsuleIndicati ons:Essential hypertension Take 1 capsule by mouth Every Morning. 90 capsule 1 025 2024 Discontinued ziprasidone (GEODON) 60 MG capsuleIndicati ons:Bipolar 1 disorder, depressed, partial remission Take 1 capsule by mouth 2 (Two) Times a Day With Meals. 60 capsule 2 025 2024 Discontinued(R eorder) HYDROcodone-ulisses taminophen ([place]) 5-325 MG per tabletIndicatio ns:Foraminal stenosis of [...] will be reassessed in 6 months. Encounters * This document contains information received from the source organization and may not represent a complete record from that organization. Date Type Department Care Team Description 09/23/2025 Telephone [facility] [address] [place] [address] Benny Watt MD Med Management 09/23/2025 Travel 09/21/2025 Refill [facility] [address] [facility] [place] [place] [address] Christopher Kern APRN Bipolar 1 disorder, depressed, partial remission 09/21/2025 Refill [facility] [address] [facility] [place] [address] Benny Watt MD Foraminal stenosis of cervical region; Arthritis of lumbar spine; Chronic pain syndrome 09/10/2025 11:15 AM EST Office Visit [facility] [address] [facility] [place] [address] Benny Watt MD Primary hypertension (Primary Dx); Mass of left lung; Hypokalemia; Acute pulmonary embolism without acute cor pulmonale, unspecified pulmonary embolism type; alf current use of diuretic; salvage determiner current use of anticoagulant; Anemia, unspecified type; Wheezing 09/10/2025 Travel 08/24/2025 Refill [facility] [address] [facility] [place] [address] Gamaliel Rdz MD Foraminal stenosis of cervical region; Arthritis of lumbar spine; Chronic pain syndrome 08/03/2025 Telephone [facility] [address] [facility] [place] [place] [address] Christopher Kern APRN Med Management 07/31/2025 Refill [facility] [address] [facility] [place] [place] [address] Christopher Kern APRN Bipolar 1 disorder, depressed, partial remission 07/30/2025 Telephone [facility] [address] [facility] [place] [address] Christopher Kern APRN Med Management 07/30/2025 Refill [facility] [address] [facility] [place] [address] Benny Watt MD Bipolar 1 disorder, depressed, partial remission 07/26/2025 Refill [facility] [address] [place] [address] Benny Watt MD Foraminal stenosis of cervical region; Arthritis of lumbar spine; Chronic pain syndrome 06/29/2025 Refill [facility] [address] [place] [address] [phone] Benny Watt MD Gastroesophageal reflux disease without esophagitis; Esophageal dysphagia 06/29/2025 Refill [facility] [address] [place] [address] Benny Watt MD Foraminal stenosis of cervical region; Arthritis of lumbar spine; Chronic pain syndrome 06/26/2025 Results Follow-Up [facility] [address] [place] [address] Benny Watt MD 06/25/2025 9:00 AM EDT Office Visit [facility] [address] [place] [address] Benny Watt MD Essential hypertension (Primary Dx); Stage 3a chronic kidney disease (CKD); Foraminal stenosis of cervical region; Arthritis of lumbar spine; Chronic pain syndrome; salvage determiner (current) use of opiate analgesic; Encounter for screening mammogram for malignant neoplasm of breast; Hypercholesterolemia; Lower extremity edema 06/25/2025 Travel from Last 3 Months Immunizations Immunization Administration Dates Next Due COVID-19 (MODERNA) 1st,2nd,3rd Dose Monovalent 0 06/11/2021 Pneumococcal Conjugate 20-Valent (PCV20) 023 Family History Medical History Relation Name Comments Depression Daughter 1 Magda Byrnes Addiction relat ed Drug abuse Daughter 1 Magad Byrnes Heroine, cocain e drug use since 16 yrs old Miscarriages / Stillbirths Daughter 1 Magda Byrnes 1 miscarriage Thyroid disease Daughter 2 [place] eng Alcohol abuse Father Zkee isaak Step father Arthritis Father Zeke mulligan Cancer Father Zeke mulligan Lung cancer Liver disease Father Zeke mulligan Drug abuse Maternal Aunt Karen Sowder Heart disease Maternal Grandfather Tim Paz CAD Arthritis Maternal Grandmother Mami Paz Depression Maternal Grandmother Mami Paz Diabetes Maternal Grandmother Mami Paz Heart disease Maternal Grandmother Mami Paz CAD Anxiety disorder Mother Linnette mulligan Arthritis Mother Linnette mulligan Cancer Mother Linnette mulligan Was surgical r emoved hysterectomy Depression Mother Linnette mulligan After menopaus e Diabetes Mother Linnette mulligan Heart disease Mother Linnette mulligan Coronary mario ry disease, congestive heart failure Hyperlipidemia Mother Linnette mulligan Stroke Mother Linnette mulligan Cancer Sister 1 Mami Highlander Surgery hyste rectomy Drug abuse Sister 1 Mami Highlander Diabetes Sister 2 Nikki Isaak Heart disease Sister 2 Nikki Mulligan Had stent put in Hyperlipidemia Sister 2 Nikki Isaak Hypertension Sister 2 Nikki Isaak Relation Name Status Comments Daughter 1 Magda Byrnes Daughter 2 [place] eng Father Zeke mulligan Maternal Aunt Karen Sowder Maternal Grandfather Tim Paz Maternal Grandmother Mami Paz Mother Linnette mulligan Sister 1 Mami Highlander Sister 2 Nikki Mulligan Social History Tobacco Use Types Packs/Day Years Used Date Smoking Tobacco: Former Cigarettes 0.3 45.5 0 06/10/1976 - 12/16/2021 Electronic Cigarette Smokeless Tobacco: Never Tobacco Cessation:Counseling Given: Not Answered Comments:Quit cigarette started vaping 6mg. Alcohol Use Standard Drinks/Week Comments Not Currently 0 (1 standard drink = 0.6 oz pure alcohol) Occasional beer in summer at [facility] PHQ-2 Answer Date Recorded Retired PHQ-9: [...] Sign Reading Time Taken Comments Blood Pressure 113/84 09/23/2025 8:38 AM EST Pulse 94 09/23/2025 8:38 AM EST Temperature 36.2 C (97.1 F) 09/10/2025 11:19 AM EST Respiratory Rate 20 09/10/2025 11:19 AM EST Oxygen Saturation 94% 09/10/2025 11:19 AM EST Inhaled Oxygen Concentration - - Weight 82.6 kg (182 lb) 09/23/2025 8:38 AM EST Height 154.9 cm (5' 1 ) 09/23/2025 8:38 AM EST Body Mass Index 34.39 09/23/2025 8:38 AM EST Plan of Treatment Upcoming Encounters Date Type Department Care Team (Late st Contact Info) Description 09/24/2025 2:45 PM EST Office Visit [facility] [address] [place] [phone] Benny Watt MD [address] [place] [address] 12/21/2025 8:15 AM EST Office Visit [facility] [address] [place] [phone] Benny Watt MD [address] [place] [address] Health Maintenance Due Date Last Done [...] DRUG SCREEN Routine 06/25/2025 9:12 AM EDT salvage determiner (current) use of opiate analgesic POC ALBUMIN/CREATININE [...] - 06/26/2025 3:07 AM EDT Performed at: [address] [place] [id number] Compression Molding Machine Tender: Simon Connolly MD, Phone: [phone] Patient Fasting: Y us Benny Watt MD LAB BLOOD ORDERABLES Fin al Result [facility] (AMBULATORY) [address] [place] [address], [facility] [address] [place] [address], * (ABNORMAL) Lipid Panel (06/25/2025 9:19 AM EDT) [facility] Total Cholesterol 160 0 - 200 mg/dL [...] - 06/26/2025 3:07 AM EDT Performed at: [address] [place] [address] [id number] Compression Molding Machine Tender: Simon Connolly MD, Phone: [phone] Patient Fasting: Y Benny Watt MD LAB BLOOD ORDERABLES Fin al Result [facility] (AMBULATORY) [address] [id number], [facility] [address] [place] [address], * (ABNORMAL) POC Medline 12 Panel Urine [...] [facility] INTERNAL CONTROL Passed Passed Lot Number [id number] Expiration Date 11/06/2026 Urine 06/25/2025 9:12 AM EDT Benny Watt MD POINT OF CARE TEST ORDER JESSIKA Final Result * (ABNORMAL) POC Albumin/Creatinine Ratio Urine (06/25/2025 9:08 AM EDT) Pathologist [facility] POC ALBUMIN, URINE 30 mg/L POC CREATININE, [...] Most Recently Relevant to Health Maintenance Insurance [employer] Care Teams Carriage Dogger Relationship Specialty Start Date End Date Benny Watt MD [address] [place] [address] PCP - General Family Medicine 02/23/22
--- OUTSIDE RECORDS SUMMARY | 2025-09-23 19:04 | XMS_ITS | Encounter Summary ---
[facility] Address [address] [place] [address] Care Team Providers Care Fourth Mate Name Role Phone Benny Watt MD Primary Care Provider + Reason for Visit * Reason Onset Date Comments Med Refill 09/21/2025 Encounter Details Date Type Department Care Team (Late st Contact Info) Description 09/21/2025 Refill [facility] [address] [place] [address] Benny Watt MD [address] [place] [address] Foraminal stenosis of cervical region; [...] alcohol) Occasional beer in summer at [facility] PHQ-2 Answer Date Recorded Retired PHQ-9: Brief [...] Description 09/24/2025 2:45 PM EST Office Visit [facility] [address] [place] [address] Benny Watt MD [address] [place] [address] 12/21/2025 8:15 AM EST Office Visit [facility] [address] [place] [address] Benny Watt MD [address] [place] [address] documented as of this encounter Visit Diagnoses Diagnosis Foraminal stenosis of cervical region Arthritis of lumbar spine Chronic pain syndrome documented in this encounter Additional Health Concerns Assessment Noted Time PHQ-2 Depression Total Score: 2 12/03/19 24 8:52 AM EST documented as of this encounter Care Teams Fourth Mate Relationship Specialty Start Date End Date Benny Watt MD [address] [place] [address] PCP - General Family Medicine 02/23/22 documented as of this encounter
--- OUTSIDE RECORDS SUMMARY | 2025-09-23 19:04 | XMS_ITS | Encounter Summary ---
[facility] Address [address] [place] [address] Care Team Providers Care Film Producer Name Role Phone Benny Watt MD Primary Care Provider + Reason for Visit * Reason Onset Date Comments Med Management 07/30/2025 Encounter Details Date Type Department Care Team (Late st Contact Info) Description 07/30/2025 Telephone [facility] [address] [facility] [place] [address] Christopher Kern, TEST RIDER [address] [place] [address] Med Management Social History Tobacco [...] PATIENT WAS NEEDING HER ZIPRASIDONE SENT TO [facility] AND NOT [facility] documented in this encounter Plan of Treatment Upcoming Encounters Date Type Department Care Team (Late st Contact Info) Description 09/24/2025 2:45 PM EST Office Visit [facility] [address] [place] [phone] Benny Watt MD [address] [place] [address] 12/21/2025 8:15 AM EST Office Visit [facility] [address] [place] [phone] Benny Watt MD [address] [place] [address] documented as of this encounter Visit Diagnoses Diagnosis Bipolar 1 disorder, depressed, partial remission documented in this encounter Additional Health Concerns Assessment Noted Time PHQ-2 Depression Total Score: 2 12/03/19 24 8:52 AM EST documented as of this encounter Care Teams Film Producer Relationship Specialty Start Date End Date Benny Watt MD [address] [place] [address] PCP - General Family Medicine 02/23/22 documented as of this encounter
--- OUTSIDE RECORDS SUMMARY | 2025-09-23 19:04 | XMS_ITS | Encounter Summary ---
Author Organization [facility] Address [address] [place] [address] Care Team Providers Care Patient Services Manager Name Role Phone Benny Watt MD Primary Care Provider + Reason for Visit * Reason Onset Date Comments Med Refill 08/24/2025 Encounter Details Date Type Department Care Team (Late st Contact Info) Description 08/24/[address] [facility] [address] [place] [address] Gamaliel Rdz MD [address] [place] [address] Foraminal stenosis of cervical region; [...] pure alcohol) Occasional beer in summer at [facility] PHQ-2 Answer Date Recorded [...] Description 09/24/2025 2:45 PM EST Office Visit [facility] [address] [place] [address] Benny Watt MD [address] [place] [address] 12/21/2025 8:15 AM EST Office Visit [facility] [address] [place] [address] Benny Watt MD [address] [place] [address] documented as of this encounter Visit Diagnoses Diagnosis Foraminal stenosis of cervical region Arthritis of lumbar spine Chronic pain syndrome documented in this encounter Additional Health Concerns Assessment Noted Time PHQ-2 Depression Total Score: 2 12/03/19 24 8:52 AM EST documented as of this encounter Care Teams Patient Services Manager Relationship Specialty Start Date End Date Benny Watt MD [address] [place] [address] PCP - General Family Medicine 02/23/22 documented as of this encounter
--- OUTSIDE RECORDS SUMMARY | 2025-09-23 19:04 | XMS_ITS | Encounter Summary ---
[facility] Address [address] [place] [address] Care Team Providers Care Transfer Station Attendant Name Role Phone Benny Watt MD Primary Care Provider + Encounter Details Date Type Department Care Team (Late st Contact Info) Description 07/30/2025 Refill [facility] [address] [place] [address] Benny Watt MD [address] [place] [address] Bipolar 1 disorder, depressed, partial [...] where request should be sent: [facility] Additional details provided by patient: she is out of refills and the pharmacy is saying they have been trying to contact the office to get an approval of the refill Best call back number: [phone] Does the patient have less than a 3 day supply: [x] Yes [] No Dante Infante 07/30/25, 13:01 EDT documented in this encounter Plan of Treatment Upcoming Encounters Date Type Department Care Team (Late st Contact Info) Description 09/24/2025 2:45 PM EST Office Visit [facility] [address] [place] [phone] Benny Watt MD [address] [place] [address] 12/21/2025 8:15 AM EST Office Visit [facility] [address] [place] [phone] Benny Watt MD [address] [place] [address] documented as of this encounter Visit Diagnoses Diagnosis Bipolar 1 disorder, depressed, partial remission documented in this encounter Additional Health Concerns Assessment Noted Time PHQ-2 Depression Total Score: 2 12/03/19 24 8:52 AM EST documented as of this encounter Care Teams Transfer Station Attendant Relationship Specialty Start Date End Date Benny Watt MD [address] [place] [address] PCP - General Family Medicine 02/23/22 documented as of this encounter
--- OUTSIDE RECORDS SUMMARY | 2025-09-23 19:04 | XMS_ITS | Encounter Summary ---
[facility] Address [address] [place] [address] Care Team Providers Care Engineer/Conductor Name Role Phone Benny Watt MD Primary Care Provider + Encounter Details Date Type Department Care Team (Latest Contact Info) Description 09/23/2025 Travel Social History Tobacco Use Types Packs/Day [...] Description 09/24/2025 2:45 PM EST Office Visit [facility] [address] [facility] [place] [phone] Benny Watt MD [address] [facility] [place] [address] 12/21/2025 8:15 AM EST Office Visit [facility] [address] [place] [address] Benny Watt MD [address] [place] [address] documented as of this encounter Visit Diagnoses Not on filedocumented in this encounter Additional Health Concerns Assessment Noted Time PHQ-2 Depression Total Score: 2 12/03/19 24 8:52 AM EST documented as of this encounter Care Teams Engineer/Conductor Relationship Specialty Start Date End Date Benny Watt MD [address] [place] [address] PCP - General Family Medicine 02/23/22 documented as of this encounter
--- OUTSIDE RECORDS SUMMARY | 2025-09-23 19:04 | XMS_ITS | Encounter Summary ---
[facility] Organization [facility] Address [address] [place] [address] Care Team Providers Care Imaging Engineer Name Role Phone Benny Watt MD [...] alcohol) Occasional beer in summer at [facility] PHQ-2 Answer Date Recorded Retired PHQ-9: [...] [facility] [address] [facility] [place] [phone] Benny Watt MD [address] [facility] [place] [address] 12/21/2025 8:15 AM EST Office Visit [facility] [address] [place] [address] Benny Watt MD [address] [place] [address] documented as of this encounter Visit Diagnoses Not on filedocumented in this encounter Additional Health Concerns Assessment Noted Time PHQ-2 Depression Total Score: 2 12/03/19 24 8:52 AM EST documented as of this encounter Care Teams Imaging Engineer Relationship Specialty Start Date End Date Benny Watt MD [address] [place] [address] PCP - General Family Medicine 02/23/22 documented as of this encounter
--- OUTSIDE RECORDS SUMMARY | 2025-09-23 19:04 | XMS_ITS | Encounter Summary ---
[facility] Address [address] [place] [address] Care Team Providers Care Rigger Up Name Role Phone Benny Watt MD Primary Care Provider + Reason for Visit * Reason Onset Date Comments Med Management 09/23/2025 Encounter Details Date Type Department Care Team (Late st Contact Info) Description 09/23/2025 Telephone [facility] [address] [place] [address] Benny Watt MD [address] [place] [address] Med Management Social History Tobacco Use Types Packs/Day Years Used Date Smoking Tobacco: Former Cigarettes 0.3 45.5 0 06/10/1976 - 12/16/2021 Electronic Cigarette Smokeless Tobacco: Never Comments:Quit cigarette star dahiana vaping 6mg. Alcohol Use Standard Drinks/Week Comments Not Currently 0 (1 standard drink = 0.6 oz pure alcohol) Occasional beer in summer at [facility] PHQ-2 Answer Date Recorded Retired PHQ-9: Brief [...] encounter Miscellaneous Notes * Telephone Encounter - Breanna Locke - 09/23/2025 9:08 AM EST Dinorah stated that she is having increased pain, it is keeping her up at night and the current medication is not helping her. In between HYDROcodone- acetaminophen ([place]) 5-325 MG per tablet she is taking tylenol and she is still having the pain. She is wanting to know if something else could be possibly be called in for her. Please advise. documented in this encounter Plan of Treatment Upcoming Encounters Date Type Department Care Team (Late st Contact Info) Description 09/24/2025 2:45 PM EST Office Visit [facility] [address] [place] [address] Benny Watt MD [address] [place] [address] 12/21/2025 8:15 AM EST Office Visit [facility] [address] [place] [address] Benny Watt MD [address] [place] [address] documented as of this encounter Visit Diagnoses Not on filedocumented in this encounter Additional Health Concerns Assessment Noted Time PHQ-2 Depression Total Score: 2 12/03/19 24 8:52 AM EST documented as of this encounter Care Teams Rigger Up Relationship Specialty Start Date End Date Benny Watt MD [address] [place] [address] PCP - General Family Medicine 02/23/22 documented as of this encounter
--- OUTSIDE RECORDS SUMMARY | 2025-09-23 19:04 | XMS_ITS | Encounter Summary ---
[facility] [address] [place] [address] Care Team Providers Care Automobile Technician Name Role Phone Benny Watt MD Primary Care Provider + Reason for Visit * Reason Onset Date Comments Med Management 08/03/2025 Encounter Details Date Type Department Care Team (Late st Contact Info) Description 08/03/2025 Telephone [facility] FAM[facility] [address] [facility] [address] Christopher Kern, RESTORATION ECOLOGIST [address] [place] [address] Med Management Social History Tobacco Use Types Packs/Day Years Used Date Smoking Tobacco: Former Cigarettes 0.3 45.5 0 06/10/1976 - 12/16/2021 Electronic Cigarette Smokeless Tobacco: Never Comments:Quit cigarette star dahiana vaping 6mg. Alcohol Use Standard Drinks/Week Comments Not Currently 0 (1 standard drink = 0.6 oz pure alcohol) Occasional beer in summer at [facility] PHQ-2 Answer Date Recorded Retired PHQ-9: [...] requested that the pharmacy be changed from [facility] in [place] to [place]. I contacted [facility] in [place] and requested for the medication of ziprasidone (GEODON) 60 MG capsule yenny pulled from the [facility] in [place], the pharmacists stated she would take care of it. * Telephone Encounter - Joelle Rasmussen RegSched Rep - 08/03/2025 9:16 AM EDT ZIPRASIDONE WAS SENT TO [facility] IN [place] BUT IT NEEDED TO BE SENT TO [facility] [place] documented in this encounter Plan of Treatment Upcoming Encounters Date Type Department Care Team (Late st Contact Info) Description 09/24/2025 2:45 PM EST Office Visit [facility] [address] [place] [address] Benny Watt MD [address] [place] [address] 12/21/2025 8:15 AM EST Office Visit [facility] [address] [place] [address] Benny Watt MD [address] [place] [address] documented as of this encounter Visit Diagnoses Not on filedocumented in this encounter Additional Health Concerns Assessment Noted Time PHQ-2 Depression Total Score: 2 12/03/19 24 8:52 AM EST documented as of this encounter Care Teams Automobile Technician Relationship Specialty Start Date End Date Benny Watt MD [address] [place] [address] PCP - General Family Medicine 02/23/22 documented as of this encounter
--- NOTE | 2025-09-23 19:05 | CT_ITS ---
PROCEDURE INFORMATION: Exam: CT Head Without Contrast Exam date and time: 09/23/2025 8:04 PM Age: 65 years old Clinical indication: Altered mental status/memory loss; Additional info: AMS, recent dx met lung CA and pte TECHNIQUE: Imaging protocol: Computed tomography of the head without contrast. Radiation optimization: All CT scans at this facility use at least one of these dose optimization techniques: automated exposure control; mA and/or kV adjustment per patient size (includes targeted exams where dose is matched to clinical indication); or iterative reconstruction. COMPARISON: No relevant prior studies available. FINDINGS: Brain: Normal. No hemorrhage. Unremarkable white matter. No mass effect. Cerebral ventricles: No ventriculomegaly. Paranasal sinuses: Visualized sinuses are unremarkable. No fluid levels. Mastoid air cells: Visualized mastoid air cells are well aerated. Bones: Unremarkable. No acute fracture. Soft tissues: Unremarkable. IMPRESSION: No acute intracranial abnormality.
--- NOTE | 2025-09-23 19:05 | CT_ITS ---
PROCEDURE INFORMATION: Exam: CTA Chest With Contrast Exam date and time: 09/23/2025 8:17 PM Age: 65 years old Clinical indication: Other: Dx met lung CA; Additional info: AMS, recent dx met lung CA and pte TECHNIQUE: Imaging protocol: Computed tomographic angiography of the chest with contrast. Exam focused on the arteries. 3D rendering (Not supervised by radiologist): MIP and/or 3D reconstructed images were created by the technologist. Radiation optimization: All CT scans at this facility use at least one of these dose optimization techniques: automated exposure control; mA and/or kV adjustment per patient size (includes targeted exams where dose is matched to clinical indication); or iterative reconstruction. Contrast material: ISOVUE; Contrast volume: 70 ml; Contrast route: INTRAVENOUS (IV); COMPARISON: CT ANGIO CHEST PE PROTOCOL 08/31/2025 5:23 PM FINDINGS: Tubes, catheters and devices: None. Pulmonary arteries: Significant interval decrease in size of the embolus in the distal right interlobar artery. No evidence new pulmonary emboli, though evaluation of the segmental and subsegmental pulmonary artery branches is somewhat limited by motion artifact. Pulmonary arteries are normal in caliber. Aorta: No aortic aneurysm. No aortic dissection. Thyroid: Unremarkable. Trachea: Patent trachea and central airways. Lungs: Mild atelectasis of the medial and posterior left upper lobe and posterior right lung base. No consolidation. Redemonstrated 4.4 x 4.6 x 4.8 cm mass in the left upper lobe, broadly contacting the major fissure and left interlobar pulmonary artery and encasing the lingular branch. A 2 mm micronodule in the lateral right upper lobe (series 5, image 41). Pleural spaces: No pneumothorax. No pleural effusion. Heart: No cardiomegaly. No pericardial effusion. Esophagus: Unremarkable. Mediastinal space: Unremarkable. Lymph nodes: A 1.0 cm short axis para-aortic lymph node. No axillary lymphadenopathy. No supraclavicular lymphadenopathy. Gallbladder and biliary ducts: Cholelithiasis. Adrenal glands: Incompletely visualized left adrenal gland lobulated mass measuring at least 7.3 x 5.3 cm. Bones/joints: Compression fracture of C6 vertebral body with lytic/destructive changes and approximately 50% height loss. There is prevertebral soft tissue thickening at this level and at least moderate spinal canal stenosis secondary to posterior disc osteophyte complex. Mild superior endplate compression fracture of T12. Soft tissues: Unremarkable. IMPRESSION: 1. Significant interval decrease in size of the embolus in the distal right interlobar artery. No evidence new pulmonary emboli, though evaluation of the segmental and subsegmental pulmonary artery branches is somewhat limited by motion artifact. 2. Compression fracture of C6 vertebral body with lytic/destructive changes and approximately 50% height loss. There is prevertebral soft tissue thickening at this level and at least moderate spinal canal stenosis secondary to posterior disc osteophyte complex. This most likely represents metastasis, the discitis osteomyelitis is not excluded. Recommend MRI of the cervical spine with and without contrast for further evaluation. 3. Redemonstrated 4.8 cm left lung upper lobe mass and 1.0 cm para-aortic lymph node. 4. Incompletely visualized left adrenal gland lobulated mass measuring at least 7.3 x 5.3 cm. 5. Age-indeterminate mild superior endplate compression fracture of T12 vertebra. COMMENTS: THIS REPORT CONTAINS FINDINGS THAT MAY BE CRITICAL TO PATIENT CARE. The exam findings were verbally communicated by me to CHANDRA SCANLON via telephone conference at 9:11 PM EST on 09/23/2025. The findings were acknowledged and understood.
--- OUTSIDE RECORDS SUMMARY | 2025-09-23 19:05 | XMS_ITS | Encounter Summary ---
[facility] [address] [place] [address] Care Team Providers Care Sql Server Consultant Name Role Phone Benny Watt MD Primary Care Provider + Reason for Visit * Reason Onset Date Comments Med Refill 07/26/2025 Encounter Details Date Type Department Care Team (Late st Contact Info) Description 07/26/2025 Refill [facility] FAMILY MEDICINE [address] [place] [address] Benny Watt MD [address] [place] [address] Foraminal stenosis of cervical region; [...] pure alcohol) Occasional beer in summer at [facility] PHQ-2 Answer Date Recorded Retired [...] Description 09/24/2025 2:45 PM EST Office Visit [facility] [address] [place] [phone] Benny Watt MD [address] [place] [address] 12/21/2025 8:15 AM EST Office Visit [facility] MED[facility]INE [address] [place] [phone] Benny Watt MD [address] [place] [address] documented as of this encounter Visit Diagnoses Diagnosis Foraminal stenosis of cervical region Arthritis of lumbar spine Chronic pain syndrome documented in this encounter Additional Health Concerns Assessment Noted Time PHQ-2 Depression Total Score: 2 12/03/19 24 8:52 AM EST documented as of this encounter Care Teams Sql Server Consultant Relationship Specialty Start Date End Date Benny Watt MD [address] [place] [address] PCP - General Family Medicine 02/23/22 documented as of this encounter
--- OUTSIDE RECORDS SUMMARY | 2025-09-23 19:05 | XMS_ITS | Encounter Summary ---
[facility] [address] [place] [address] Care Team Providers Care Tape Calender Name Role Phone Benny Watt MD Primary Care Provider + Encounter Details Date Type Department Care Team (Late Contact Info) Description 06/26/2025 Results Follow-Up [facility] FAMILY MEDICINE [address] [place] [address] Benny Watt MD [address] [place] [address] Social History Tobacco Use Types Packs/Day Years Used Date Smoking Tobacco: Former Cigarettes 0.3 45.5 0 06/10/1976 - 12/16/2021 Electronic Cigarette Smokeless Tobacco: Never Comments:Quit cigarette star dahiana vaping 6mg. Alcohol Use Standard Drinks/Week Comments Not Currently 0 (1 standard drink = 0.6 oz pure alcohol) Occasional beer in summer at [facility] PHQ-2 Answer Date Recorded Retired PHQ-9: Brief [...] Description 09/24/2025 2:45 PM EST Office Visit [facility]INE [address] [place] [address] Benny Watt MD [address] [place] [address] 12/21/2025 8:15 AM EST Office Visit [facility] [address] [place] [address] Benny Watt MD [address] [place] [address] documented as of this encounter Visit Diagnoses Diagnosis Stage 3a chronic kidney disease (CKD)- Primary documented in this encounter Additional Health Concerns Assessment Noted Time PHQ-2 Depression Total Score: 2 12/03/19 8:52 AM EST documented as of this encounter Care Teams Tape Calender Relationship Specialty Start Date End Date Benny Watt MD [address] [place] [address] PCP - General Family Medicine 02/23/22 documented as of this encounter
--- NOTE | 2025-09-23 19:08 | HMH.EDGENADL ---
Discharge Plan Disposition Patient Disposition: Admitted Prescriptions Prescriptions: No Action albuterol sulfate 90 mcg/actuation HFA aerosol inhaler 2 puff inhalation Q4H PRN (Reason: wheezing) cyclobenzaprine 5 mg tablet 5 mg PO TID PRN (Reason: muscle spasm) enoxaparin [Lovenox] 80 mg/0.8 mL syringe 80 mg SQ Q12H 5 Days Qty: 8 0RF Rx Instructions: Do not take this while using other anticoagulants. Instructions given to patient to use this to facilitate bronchoscopy procedure. Call [facility] at [phone] with any further questions or concerns bisoprolol-hydrochlorothiazide 1 EACH tablet 1 each PO DAILY lovastatin 10 MG tablet 10 mg PO HS diazepam 10 MG tablet 10 mg PO TID PRN (Reason: Anxiety) furosemide 40 mg Tablet 40 mg PO DAILY PRN (Reason: Edema) hydrocodone-acetaminophen 5-325 mg tablet 1.5 tab PO Q8H PRN (Reason: Pain) Patient Comments: TAKE 1 AND 1/2 TABLETS BY MOUTH EVERY 8 HOURS NEEDED FOR SEVERE PAIN omeprazole 40 mg capsule,delayed release(DR/EC) 40 mg PO DAILY Patient Comments: TAKE 1 CAPSULE BY MOUTH DAILY potassium chloride 20 mEq tablet,ER particles/crystals 20 meq PO DAILY Patient Comments: TAKE 1 TABLET BY MOUTH DAILY famotidine 20 mg tablet 20 mg PO BID Patient Comments: TAKE 1 TABLET BY MOUTH TWICE DAILY amitriptyline 25 mg tablet 25 mg PO HSP PRN (Reason: Insomnia) Patient Comments: TAKE 1 TABLET BY MOUTH EVERY NIGHT lisinopril 5 mg tablet 5 mg PO DAILY Patient Comments: TAKE 1 TABLET BY MOUTH DAILY ziprasidone HCl 60 mg capsule 60 mg PO BID Patient Comments: TAKE 1 CAPSULE BY MOUTH TWICE DAILY WITH MEALS Jardiance 10 mg tablet 10 mg PO DAILY Eliquis DVT-PE Treat 30D Start 5 mg (74 tabs) tablets,dose pack See Rx Instructions .ROUTE .COMPLEX Qty: 74 0RF Rx Instructions: orally per package directions Referrals Follow up/Referrals: Benny Watt MD [Primary Care Provider, Medical] - See instructions Clinical Impressions Clinical Impression: Acute encephalopathy, Lung mass, Metastatic disease, Severe sepsis Print Language Print Language: [place] Discharge ED Provider: Isai Pressley General Adult HPI General Chief complaint: Weakness Stated complaint: confusion , weakness, fall,dizzy Time Seen by Provider: 09/23/25 18:46 Mode of Arrival: Ambulatory Source of Information: Relative Description of Symptoms (Recalled from ER Triage Doc. by RN): PATIENT PRESENTS TO ED FOR CONFUSION, GENERALIZED WEAKNESS, AND DIZZINESS FOR THE PAST WEEK. PT RECENTLY DX WITH A MASS IN HER LUNG WITH METS. THIS WEEK STARTED WITH INCREASING WEAKNESS WITH INTERMITTENT CONFUSION, DAUGHTER REPORTS CONFUSION WORSENING AND WEAKNESS WORSENING LAST NIGHT. History of Present Illness HPI narrative: Patient is a 65-year-old female presenting today with acute encephalopathy this been worsening over the last 2 weeks but has been somewhat intermittent. Was recently diagnosed with a pulmonary embolism in her right mainstem and segmental pulmonary arteries in addition to a large hilar mass on the left side with metastatic disease no imaging of her brain has been done recently. 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 Her daughter who is one of our employees here has been caring for her closely. He states that she has been hallucinating and just very confused with a deer in headlights look. Patient has not had any fevers or chills to her knowledge. She denies any focal pain at this point. But she is confused and history is limited from her standpoint. Related Data Home Medications ?Medication ?Instructions ?Recorded ?Confirmed bisoprolol 10 1 each PO DAILY High blood pressure 04/26/20 09/15/25 mg-hydrochlorothiazide 6.25 mg tablet diazepam 10 mg tablet 10 mg PO TID PRN Anxiety 04/26/20 09/15/25 lovastatin 10 mg tablet 10 mg PO HS 04/26/20 09/15/25 amitriptyline 25 mg tablet 25 mg PO HSP PRN Insomnia 08/31/25 09/15/25 empagliflozin 10 mg tablet 10 mg PO DAILY 08/31/25 09/15/25 (Jardiance) famotidine 20 mg tablet 20 mg PO BID 08/31/25 09/15/25 furosemide 40 mg tablet 40 mg PO DAILY PRN Edema 08/31/25 09/15/25 hydrocodone 5 mg-acetaminophen 325 1.5 tab PO Q8H PRN Pain 08/31/25 09/15/25 mg tablet lisinopril 5 mg tablet 5 mg PO DAILY 08/31/25 09/15/25 omeprazole 40 mg capsule,delayed 40 mg PO DAILY 08/31/25 09/15/25 release potassium chloride 20 mEq 20 meq PO DAILY 08/31/25 09/15/25 tablet,extended release(part/cryst) ziprasidone HCl 60 mg capsule 60 mg PO BID 08/31/25 09/15/25 albuterol sulfate 90 mcg/actuation 2 puff inhalation Q4H PRN wheezing 09/15/25 09/15/25 aerosol inhaler cyclobenzaprine 5 mg tablet 5 mg PO TID PRN muscle spasm 09/15/25 09/15/25 Previous Rx's ?Medication ?Instructions ?Recorded apixaban 5 mg (74 tabs) tablets in See Rx Instructions PO .COMPLEX 09/01/25 a dose pack (Eliquis DVT-PE Treat #74 tabs 30D Start) enoxaparin 80 mg/0.8 mL 80 mg (0.8 mL) SQ Q12H 5 days #8 mL 09/15/25 subcutaneous syringe (Lovenox) Allergies Allergy/AdvReac Type Severity Reaction Status Date / Time codeine AdvReac Mild Nausea Verified 09/15/25 10:53 PFSH PFS Disclaimer: The information contained in this section may have been updated after the patient was seen, as this information can be updated by other users. Medical History (Updated 09/23/25 @ 20:46 by Isai Pressley MD) Hemoptysis Pneumonia Exposure to COVID-19 virus Hilar lymphadenopathy Mediastinal lymphadenopathy Pulmonary embolism on right Depression Anxiety Hyperlipidemia Hypertension Chronic kidney disease Surgical History H/O eye surgery Family History Other No significant family history Social History Smoking Status: Former smoker tobacco type: cigarettes packs per day: 1 second hand exposure: No alcohol intake: never substance use type: denies use current occupational status: other Travel in the last 8 weeks?: None household members: spouse housing: house current occupational exposures/hazards: No caffeine: Yes Have you lived/traveled outside [place] in past 30 days?: No Contact w/someone who lives/traveled outside US past 30 days?: No Exposure to someone with infectious disease in past 14 days?: No Do you have a fever (greater than 100.4 F or 38 C)?: No Have you tested positive for COVID-19?: No Exposed to someone with COVID-19 in past 14 days?: No Do you have a sore throat?: No Do you have a cough?: No Do you have any weakness?: Yes Do you have any diarrhea?: No Are you experiencing any unusual bleeding?: No Do you have any muscle aches/pain?: No Do you have any abdominal pain?: No Are you experiencing loss of taste or smell?: No Other Medical History Have you received the Flu Vaccine for this season: No Have you received the Pneumonia Vaccine: No ROS Obtained: Yes All systems reviewed & no additional complaints except as documented Physical Exam General General appearance: other (Patient staring off into space but is alert and slowed cognitively) Respiratory Respiratory exam: Present normal lung sounds bilaterally; Absent respiratory distress Cardiovascular Cardiovascular exam: Present tachycardia (Heart rate in the 120s) Neurological Exam Neurological exam: Present alert, oriented X3 and other (Nonfocal but very slowed cognitively) Medical Decision Making Medical Records Screening: Per USPSTF and CDC recommendations, given the prevalence of disease in our region, it is our hospital?s policy to screen for HIV and viral Hepatitis for all patients aged 18 and over and those with ongoing risk factors. Brad[place] Inquiry Pt receiving controlled substance: No Vital Signs: 09/23/25 19:00 09/23/25 19:00 09/23/25 19:21 Temperature 99.6 F 99.6 F Temperature Source Oral Pulse Rate 109 H 110 H Pulse Rate [Right] 109 H Respiratory Rate 18 18 21 Blood Pressure 137/94 H Blood Pressure [Left Arm] 137/94 H Blood Pressure Mean Blood Pressure Mean [Left Arm] 108 02 Sat by Pulse Oximetry 96 96 94 L Oxygen Delivery Method Room Air 09/23/25 19:30 09/23/25 19:30 09/23/25 19:45 Temperature Temperature Source Pulse Rate 104 H 104 H Pulse Rate [Right] Respiratory Rate 38 H 36 H Blood Pressure 128/88 Blood Pressure [Left Arm] Blood Pressure Mean 101 Blood Pressure Mean [Left Arm] 02 Sat by Pulse Oximetry 95 96 Oxygen Delivery Method Room Air Room Air 09/23/25 20:00 09/23/25 20:00 Temperature Temperature Source Pulse Rate 97 H Pulse Rate [Right] Respiratory Rate 26 H Blood Pressure 117/84 Blood Pressure [Left Arm] Blood Pressure Mean 92 Blood Pressure Mean [Left Arm] 02 Sat by Pulse Oximetry 96 Oxygen Delivery Method Room Air Lab Data Lab results reviewed: Yes I reviewed the patient's lab results. Lab Results 09/23/25 19:14: WBC 13.3 H, RBC 3.74 L, Hgb 10.5 L, Hct 30.9 L, MCV 82.6, MCH 28.1, MCHC 34.0, RDW 13.4, Plt Count 267, MPV 9.6, Neut % (Auto) 89.1 H, Lymph % (Auto) 5.3 L, [place] % (Auto) 4.7, Eos % (Auto) 0.2, Baso % (Auto) 0.2, Neut # (Auto) 11.8 H, Lymph # (Auto) 0.7, [place] # (Auto) 0.6, Eos # (Auto) 0.0, Baso # (Auto) 0.0, VBG pH 7.45 H, VBG pCO2 34.0 L, VBG pO2 66.2 H, VBG HCO3 23.1, VBG Total CO2 24.1, VBG O2 Saturation 92.8 H, VBG Base Excess -0.9, VBG Lactic Acid 1.5, Sodium 134 L, Potassium 4.3, Chloride 98, Carbon Dioxide 24, Anion Gap 16.3 H, BUN 18 H, Creatinine 1.00, Estimated Creat Clear 73, Estimated GFR 56 L, Est GFR ( Amer) 68, Glucose 141 H, Calcium 9.1, Total Bilirubin 0.5, AST 20, ALT 13, Alkaline Phosphatase 104, Troponin I < 0.01, Total Protein 7.4, Albumin 3.8, Globulin 3.6 H, Albumin/Globulin Ratio 1.1, TSH 3.88 09/23/25 19:47: Urine Color Yellow, Urine Appearance Clear, Urine pH 5.5, Ur Specific [place] 1.025, Urine Protein Trace, Urine Glucose (UA) Negative, Urine Ketones Negative, Urine Blood Negative, Urine Nitrate Negative, Urine Bilirubin Negative, Urine Urobilinogen 1.0, Ur Leukocyte Esterase Negative 09/23/25 19:14 09/23/25 19:14 Orders (Tests/Meds): ED MEDICATIONS Generic Name Dose Route Start Last Admin Trade Name Freq PRN Reason Stop Dose Admin Piperacillin Sod/Tazobactam 100 mls @ 200 mls/hr 09/23/25 20:41 Sod 4.5 gm/ Sodium Chloride IV 09/23/25 21:10 ONCE ONE Lactated Ringer's 1,570 mls @ 785 mls/hr 09/23/25 20:41 Lactated Ringer's 1000 Ml Bag 30 ml/kg infuse over 2 hr (1570 ml) 09/23/25 22:40 IV .Q2H ONE Miscellaneous 1 each 09/23/25 20:45 Vancomycin Consult Request NOTAPPLIC 10/23/25 20:44 CONSULT PHARMACY RYAN Sodium Chloride 10 ml 09/23/25 20:26 09/23/25 20:27 Sodium Chloride 0.9% 10ml Syr (Rad Only) IV 10/23/25 20:25 10 ml NEEDED PRN Administration Maintain IV Site Discontinued Medications Generic Name Dose Route Start Last Admin Trade Name Freq PRN Reason Stop Dose Admin Acetaminophen 1,000 mg 09/23/25 19:05 09/23/25 19:33 Acetaminophen 1,000mg/100ml Vial IV 09/23/25 19:06 1,000 mg ONCE ONE Administration Lactated Ringer's 1,000 mls @ 999 mls/hr 09/23/25 19:15 09/23/25 19:33 Lactated Ringer's 1000 Ml Bag IV 09/23/25 20:15 999 mls/hr .Q1H1M RYAN Administration Iopamidol 70 ml 09/23/25 20:26 09/23/25 20:27 Iopamidol-370 (76%);100ml Bottle IV 09/23/25 20:27 70 ml ONCE ONE Administration Sodium Chloride 40 ml 09/23/25 20:26 09/23/25 20:27 0.9 % Sodium Chloride 50 Ml Vial IV 09/23/25 20:27 40 ml ONCE ONE Administration ORDERS Category Date Time Status CT angio chest PE protocol Stat Cat Scan 09/23/25 19:[address] head/brain wo con Stat Cat Scan 09/23/25 19:05 Taken Ammonia Stat Lab 09/23/25 19:06 Ordered CBC w/Auto Diff [Complete Blood Count Auto Diff] Stat Lab 09/23/25 19:14 Completed CMP [Comprehensive Metabolic Panel] Stat Lab 09/23/25 19:14 Completed Full Resp Panel w/COVID ([facility]) Routine Lab 09/23/25 19:47 Received Lactate Venous Stat Lab 09/23/25 19:25 Ordered TSH [Thyroid Stimulating Hormone] Stat Lab 09/23/25 19:14 Completed Trop I [Troponin I] Stat Lab 09/23/25 19:14 Completed Troponin I Q3H Lab 09/23/25 22:15 Ordered Troponin I Q3H Lab 09/24/25 01:15 Ordered UA [Urinalysis and Microscopic] Stat Lab 09/23/25 19:47 Results Blood Culture Stat Micro 09/23/25 19:14 Received Venous Blood Gas Stat RT 09/23/25 19:14 Completed Tissue Perfus/Sepsis Re-Eval Sepsis Re-Evaluation Performed: Yes Date Performed: 09/23/25 Time Performed: 20:44 Medical Decision Narrative: 65-year-old with above history and physical differential includes metastatic disease to the brain metabolic abnormalities sepsis. She felt warm to me her temperature was 99.6 on my evaluation and she is tachycardic to 120 at rest I suspect she may be septic with some brain involvement. Will get a noncontrasted CT scan of her head and a CT PE. She could have a postobstructive pneumonia with this large hilar mass in addition to recently having a pulmonary embolism. She has been compliant with her anticoagulation. No worsening symptoms with regards to pneumonia but that remains on the differential urinalysis for UTI is also in the differential as are other viral illnesses. Metabolic dysfunction such as SIADH and hyponatremia on the differential as well broad workup is pending and will reassess. Reassessment 845 CT scan of the patient's head and chest performed I personally interpreted no obvious vasogenic edema or metastatic disease in the brain. With regards to the CT of her chest clot burden has improved still present on the right side but better. Mass has slightly increased in size but is essentially the same no obvious postobstructive pneumonia or other lung parenchymal abnormalities namely pneumonia. Urinalysis is unremarkable no metabolic explanation for her symptoms. She is tachypneic tachycardic and has a leukocytosis and was warm to touch and a low-grade temp I do suspect she is possibly bacteremic possibly also has meningitis. She is on Eliquis and unable to do LP as result of this. She may need to have this held if she does not improve for a possible lumbar puncture from a diagnostic standpoint. Given the fact that she is not back to baseline I discussed this with her daughter and we opted to keep the patient in the hospital until her cultures come back and to watch her clinical status IV antibiotics have been initiated. IV fluids also initiated she maintain maps above 65. With encephalopathy this is likely endorgan damage from sepsis. No other explanation is available at the moment. Patient admitted after discussing the case with Kaushal with hospital medicine. Critical Care Critical Care Time Critical Care Time: Yes Attestation: On 09/23/25, the high probability of a clinically significant, sudden or life threatening deterioration of the following system(s) required my full and direct attention, intervention and personal management. The time I documented below is in addition to time spent performing reported procedures but includes the following listed in this critical care notation. Total Time Total Critical Care Time: 35
--- NOTE | 2025-09-23 19:13 | ECG_ITS ---
APPROVED REPORT Exam: Resting ECG HR:106 bpm ECG Measurements Heart Rate 106 AXES ND 136 P 59 QRSd 82 QRS 58 QT 326 T 43 QTc 388 Conclusion SINUS TACHYCARDIA ABNORMAL RHYTHM ECG UNCONFIRMED REPORT Electronically signed by : Davion Pressley, 09/23/2025 23:27:04
[2025-09-23 19:25] LABS: Hematocrit 30.9 % (37.0-47.0); Hemoglobin 10.5 g/dL (12.2-16.2); Immature Granulocytes % 0.5 %; Mean Corpuscular HGB Conc 34.0 g/dL (31.8-35.4); Mean Corpuscular Hemoglobin 28.1 pg (27.0-31.2); Mean Corpuscular Volume 82.6 fl (81-99); Nucleated Red Blood Cells % 0 %; Platelet Count 267 K/mm3 (142-424); Red Blood Count 3.74 M/mm3 (4.20-5.40); Red Cell Distribution Width-SD 40.1 fL; White Blood Count 13.3 K/mm3 (4.8-10.8)
[2025-09-23 19:31] LABS: Lactate Venous 1.5 mmol/L (0.4-2.0); VBG HCO3 23.1 mmol/L (23-30); VBG PCO2 34.0 mmol/L (35-51); VBG PH 7.45 mmol/L (7.31-7.41); VBG PO2 66.2 mmol/L (28-40)
[2025-09-23] MEDS: ACETAMINOPHEN 1,000MG/100ML VIAL 1000 MG IV (19:33)
[2025-09-23] MEDS: LACTATED RINGERS 1000ML 1,000 ML 999 ML IV (19:33)
[2025-09-23 19:47] LABS: Albumin Level 3.8 g/dl (3.5-5.0); Chloride 98 mmol/L (98-107); Potassium 4.3 mmoL/L (3.5-5.1); Sodium 134 mmol/L (136-145)
[2025-09-23 19:50] LABS: Alanine Aminotransferase 13 U/L (12-78); Albumin/Globulin Ratio 1.1 (1.1-1.8); Alkaline Phosphatase 104 U/L (38-126); Anion Gap 16.3 mEq/L (5-15); Aspartate Amino Transferase 20 U/L (14-36); Bilirubin,Total 0.5 mg/dl (0.2-1.3); Blood Urea Nitrogen 18 mg/dl (7-17); Calcium 9.1 mg/dl (8.4-10.2); Carbon Dioxide 24 mmol/L (22.0-30.0); Creatinine Clearance Estimated 73 mL/min (50-200); Creatinine,Serum 1.00 mg/dl (0.52-1.04); Estimated Glomerular Filt Rate 56 ml/min (>60); GFR (African American) 68 ML/MIN (>60); Globulin 3.6 g/dL (1.3-3.2); Glucose 141 mg/dl (74-100); Total Protein,Serum 7.4 g/dl (6.3-8.2)
[2025-09-23 19:59] LABS: Adenovirus,PCR Not Detected (NotDetected); Chlamydophila Pneumoniae, PCR Not Detected (NotDetected); Coronavirus 19, PCR Not Detected (NotDetected); Coronovirus HKU1,PCR Not Detected (NotDetected); Influenza A, PCR Not Detected (NotDetected); Influenza AH1, 2009 Not Detected (NotDetected); Influenza AH1, PCR Not Detected (NotDetected); Influenza AH3,PCR Not Detected (NotDetected); Influenza B, PCR Not Detected (NotDetected); Microscopic, Urine URINE MICROSCOPIC (MICROSCOPIC); Mycoplasma Pneumoniae, PCR Not Detected (NotDetected); Parainfluenza 1, PCR Not Detected (NotDetected); Parainfluenza 2, PCR Not Detected (NotDetected); Parainfluenza 3, PCR Not Detected (NotDetected); Parainfluenza 4, PCR Not Detected (NotDetected)
[2025-09-23 20:06] LABS: Troponin I < 0.01 ng/ml (0.00-0.034)
[2025-09-23 20:06] LABS: Bilirubin,Urine Negative (Negative); Color,Urine YELLOW (Yellow); Glucose,Urine (UA) Negative (Negative); Ketones,Urine Negative (Negative); Leukocyte Esterase,Urine Negative (Negative); PH,Urine 5.5 (5.0-8.5); Protein,Urine TRACE (Negative); Specific Gravity, Urine 1.025 (1.005-1.030); Urobilinogen,Urine 1.0 EU/dl (0.2)
--- NOTE | 2025-09-23 20:21 | PC.NURSE ---
Pt placed on purewick by Annia garner
[2025-09-23 20:22] LABS: Thyroid Stimulating Hormone 3.88 uIU/mL (0.465-4.68)
[2025-09-23] MEDS: IOPAMIDOL-370 (76%);100ML BOTTLE 70 ML IV (20:27)
[2025-09-23] MEDS: 0.9 % SODIUM CHLORIDE 50 ML VIAL 40 ML IV (20:27)
[2025-09-23] MEDS: SODIUM CHLORIDE 0.9% 10ML SYR (RAD ONLY) 10 ML IV (20:27)
[2025-09-23 20:44] LABS: Bacteria,Urine 1+ /lpf; WBC,Urine Occasional #/hpf (0-3)
[2025-09-23] MEDS: PIPERACILLIN/TAZO 4.5 GM in 0.9 % SODIUM CHLORIDE 100 ML IV (21:08)
[2025-09-23] MEDS: LACTATED RINGERS 1000ML 1,570 ML 785 ML IV (21:17)
--- NOTE | 2025-09-23 21:22 | CT_ITS ---
PROCEDURE INFORMATION: Exam: CT Cervical Spine Without Contrast Exam date and time: 09/23/2025 9:43 PM Age: 65 years old Clinical indication: Neck pain; Additional info: F/u abnormal CT scan c6 TECHNIQUE: Imaging protocol: Computed tomography of the cervical spine without contrast. Radiation optimization: All CT scans at this facility use at least one of these dose optimization techniques: automated exposure control; mA and/or kV adjustment per patient size (includes targeted exams where dose is matched to clinical indication); or iterative reconstruction. COMPARISON: CT ANGIO CHEST PE PROTOCOL 09/23/2025 8:17 PM FINDINGS: Bones: There is a lytic expansile and destructive bone lesion involving the right posterior 1st rib. There is a mottled mixed lytic and sclerotic bone lesion involving the C6 vertebral body with a pathologic compression fracture with about 80% anterior vertebral body height loss. There is evidence for extraosseous soft tissue mass extending into the anterior paravertebral space. Lungs: Lung apices are normal. Soft tissues: Unremarkable. IMPRESSION: Findings consistent with osseous metastatic disease as discussed above. Pathologic severe compression fracture of C6. There appears to be posterior vertebral margin retropulsion and severe narrowing of the spinal canal. Would consider a follow-up MRI scan to exclude epidural extension of tumor.
--- NOTE | 2025-09-23 22:03 | PC.NURSE ---
Called [facility] to transfer this pt, stated they would call back
[2025-09-23] MEDS: VANCOMYCIN/WATER FOR INJ (PEG) 1.75 GM/350 ML PIGGYBACK IV (22:06)
[2025-09-23] MEDS: VANCOMYCIN CONSULT REQUEST 1 EACH NOTAPPLIC (22:07)
--- NOTE | 2025-09-23 22:13 | PC.NURSE ---
Addendum entered by Joelle Stewart RN 09/23/25 22:14: C-collar placed at 2140. plan of care ongoing. checked C-collar Original Note: C-collar placed at 2140. plan of care ongoing
[2025-09-23 22:45] LABS: Ammonia < 9 umol/L (9-30)
[2025-09-23 22:58] LABS: Troponin I < 0.01 ng/ml (0.00-0.034)
--- NOTE | 2025-09-23 23:02 | PC.NURSE ---
Report called to Mame Mcintosh RN at [facility]
== END 2025-09-23 23:57 | disposition admitted as inpatient to this hospital (09) ==
LOC: ER 20:41 → 2ND 21:08 → ER 23:24
PROVIDERS: Emergency Provider Student in an Organized Health Care Education/Training Program; PCP Family Medicine
DX: A41.89 Other specified sepsis (principal); R65.20 Severe sepsis without septic shock; G93.49 Other encephalopathy; R91.8 Other nonspecific abnormal finding of lung field; C79.51 Secondary malignant neoplasm of bone; M84.58XA Pathological fracture in neoplastic disease, other specified site, initial encounter for fracture; R41.0 Disorientation, unspecified
CPT/HCPCS: 0223U; 70450; 71275; 72125; 80053; 81001; 82140; 82803; 84443; 84484; 85025; 87040; 93005; 96361; 96365; 96366; 96367; 96375; 99285; 99291; J0131; J2543; J3375; J7120; Q9967